=== PATIENT | female | born 1985 | race Caucasian/White ===

== ENCOUNTER 2016-12-07 16:03 | Inpatient (IN) | payer SELFPAY ==
[2016-12-07] MEDS ORDERED: ADENOSINE 6 MG/2 ML VIAL ONE ×3 (16:41→20:25)
--- NOTE | 2016-12-07 16:41 | CPEKG ---
Heart Rate: 141 RR Interval: 426 QRSD Interval: 152 QT Interval: 396 QTC Interval: 607 QRS [place]: 107 T Wave [place]: 55 EKG Severity - ABNORMAL ECG - EKG Impression: WIDE COMPLEX TACHYCARDIA EKG Impression: NONSPECIFIC INTRAVENTRICULAR CONDUCTION DELAY Electronically Signed By: Manuel Padilla 07-Dec-2016 19:46:24
[2016-12-07] MEDS ORDERED: NS 1,000 ML IV ONE (16:56)
[2016-12-07] MEDS ORDERED: ADENOSINE 6 MG/2 ML VIAL IVP ONE ×2 (16:57)
[2016-12-07 17:09] LABS: % IMMATURE GRANULYOCYTES 0.4 % (0.0-1.1); ABSOLUTE IMMATURE GRANULOCYTES 0.03 10^3/uL (0.00-0.10); ADD DIFF? NO; ADD MORPH? NO; ADD SCAN? NO; ATYPICAL LYMPHOCYTE FLAG 0 (0-99); FRAGMENT RBC FLAG 0 (0-99); HEMATOCRIT 49.4 % (38.0-47.0); HEMOGLOBIN 16.7 g/dL (12.6-16.3); LEFT SHIFT FLG 0 (0-99); LIPEMIA HEMOLYSIS FLAG 90 (0-99); MEAN CELL HEMOGLOBIN 36.9 pg (27.9-34.1); MEAN CELL HEMOGLOBIN CONCENTR. 33.8 g/dL (32.4-36.7); MEAN CELL VOLUME 109.3 fL (81.5-99.8); MEAN PLATELET VOLUME 10.3 fL (8.7-11.7); PLATELET CLUMPS FLAG 0 (0-99); PLATELET COUNT 237 10^3/uL (150-400); RED BLOOD CELL COUNT 4.52 10^6/uL (4.18-5.33); RED CELL DISTRIBUTION WIDTH 12.3 % (11.5-15.2)
[2016-12-07 17:13] LABS: ANION GAP 14 mEq/L (8-16); CALCIUM 8.9 mg/dL (8.5-10.4); CARBON DIOXIDE 25 mEq/l (22-31); CHLORIDE 102 mEq/L (97-110); CREATININE 0.8 mg/dL (0.6-1.0); GLOMERULAR FILTRATION RATE > 60; GLUCOSE 91 mg/dL (70-100); POTASSIUM 4.4 mEq/L (3.5-5.2); SODIUM 141 mEq/L (134-144)
--- NOTE | 2016-12-07 17:24 | EDPHY ---
HPI/HX/ROS/PE/MDM Narrative: Chief complaint: Shortness of breath, chest pain and fatigue HPI: 31-year-old female presenting with 2-3 weeks of general shortness of breath, fatigue, mild tightness in her right upper chest which seems a bit worse when she takes a deep breath. No recent travel. No leg pain or swelling. No recent immobility. She does not smoke. She does not take control. No family history of blood clotting disorder. He has not had any palpitations. She was seen at Urgent Care noted to be tachycardic if the rate of 130-40 was sent here for evaluation. Patient has not had any recent illness. No fevers or chills. No cough. No abdominal pain. No nausea or vomiting. Does not have a family history of cardiac arrhythmias or sudden cardiac . She does not smoke. Drinks occasional caffeinated beverages. Rare alcohol. No other recreational drug use. ROS: 10 point Review of Systems is negative except as noted in the HPI. My physical exam: Gen: Awake, Alert, No Distress, tachycardic and regular with a rate about 140 HEENT: Nose: no rhinorrhea Eyes: PERRLA, EOMI Mouth: Moist mucosa Neck: Supple, no JVD Chest: nontender, lungs clear to auscultation Heart: Tachycardic Abd: Soft, non-tender, no guarding Back: no CVA tenderness, no midline tenderness Ext: no edema, non-tender Skin: no rash Neuro: CN II-XII intact, Sensation grossly intact, Strength 5/5 in bilateral upper and lower extremities ED Course: ECG 1, 1638 wide complex tachycardia with a rate of 141, ECG 2. 1822 sinus tachycardia with a rate of 120 with a left bundle branch block morphology CT chest: As interpreted by Dr. Palafox. Small right pleural effusion. Cardiomegaly. No PE. No pericardial effusion. Ground-glass appearance in the right lower lobe. Patient has a wide complex regular tachycardia with a rate of 141 and is hypertensive with this. Cannot rule out a possible reentrant rhythm given her hemodynamic stability. She was given adenosine 6 mg followed by 12 mg rapid IV push. There is absolutely no change in her rhythm. Blood work has been sent. She is mildly hypoxic with an oxygen saturation about 90-91% on room air racing the increased concern for the possibility of pulmonary embolus. 1729 D-dimer elevated at 3.2. CT angiogram of her chest has been ordered. Heart rate has dropped down to 120 but remains wide complex. She remains hemodynamically appropriate. CT noted. No PE. Cardiomegaly. Patient's troponin is normal. Her CBC is normal her electrolytes are normal. I have discussed with Dr. Thompson, cardiology. has reviewed the ECGs. He agrees with me that this is cardiomegaly with a possible myocarditis. He is requesting a BMP. He will arrange for an echocardiogram to be done as an inpatient tomorrow. He is asking that the patient be admitted to the hospitalist service. I have discussed with Dr. Lopez, hospitalist. He will admit to his service for further evaluation. He would like the patient paced on PCU. Dr. Moody is at the bedside. He has attempted a 3rd dose of adenosine which was unsuccessful. He would like to cardiovert her in the emergency department. I will be providing the procedural sedation. I have explained the risks and associated with procedural sedation including respiratory distress depression hypotension. She understands these and has verbally consented. Procedure: Procedural sedation. Indication: Electrical cardioversion. A pre-sedation evaluation was completed on the patient just prior to the procedure. Patient is an appropriate candidate for procedural sedation with ASA class 1 E. The risks of the sedation were discussed including but not limited to dysrhythmia, need for airway intervention or general anesthesia, disability, ; and verbal consent obtained. A timeout was observed and patient's identity confirmed. The patient was sedated with 50 mcg of fentanyl and a total of 110 mg of propofol. The patient was monitored with continuous pulse oximetry, capnography, and school lunch monitor. There were no complications and no significant hypoxemia. I remained at the bedside for the sedation. The total time I spent in the procedural sedation was 15 minutes. - Data Points Laboratory Results: Laboratory Results 12/07/16 16:35 12/07/16 16:35 12/07/16 16:35 WBC 8.43 10^3/uL (3.80-9.50) RBC 4.52 10^6/uL (4.18-5.33) Hgb 16.7 H g/dL (12.6-16.3) Hct 49.4 H % (38.0-47.0) MCV 109.3 H fL (81.5-99.8) MCH 36.9 H pg (27.9-34.1) MCHC 33.8 g/dL (32.4-36.7) RDW 12.3 % (11.5-15.2) Plt Count 237 10^3/uL (150-400) MPV 10.3 fL (8.7-11.7) Neut % (Auto) 59.2 % (39.3-74.2) Lymph % (Auto) 30.6 % (15.0-45.0) [place] % (Auto) 8.1 % (4.5-13.0) Eos % (Auto) 0.8 % (0.6-7.6) Baso % (Auto) 0.9 % (0.3-1.7) Nucleat RBC Rel Count 0.0 % (0.0-0.2) Absolute Neuts (auto) 4.99 10^3/uL (1.70-6.50) Absolute Lymphs (auto) 2.58 10^3/uL (1.00-3.00) Absolute Monos (auto) 0.68 10^3/uL (0.30-0.80) Absolute Eos (auto) 0.07 10^3/uL (0.03-0.40) Absolute Basos (auto) 0.08 10^3/uL (0.02-0.10) Absolute Nucleated RBC 0.00 10^3/uL (0-0.01) Immature Gran % 0.4 % (0.0-1.1) Immature Gran # 0.03 10^3/uL (0.00-0.10) D-Dimer 3.25 H ug/mLFEU (0.00-0.50) Sodium 141 mEq/L (134-144) Potassium 4.4 mEq/L (3.5-5.2) Chloride 102 mEq/L (97-110) Carbon Dioxide 25 mEq/l (22-31) Anion Gap 14 mEq/L (8-16) BUN 4 L mg/dL (7-23) Creatinine 0.8 mg/dL (0.6-1.0) Estimated GFR > 60 Glucose 91 mg/dL (70-100) Calcium 8.9 mg/dL (8.5-10.4) Troponin I 0.022 ng/mL (0-0.034) Medications Given: Discontinued Medications Adenosine (Adenosine) 6 mg IVP EDNOW ONE Stop: 12/07/16 16:58 Last Admin: 12/07/16 16:45 Dose: 6 mg Adenosine (Adenosine) 12 mg IVP EDNOW ONE Stop: 12/07/16 16:58 Last Admin: 12/07/16 16:50 Dose: 12 mg Sodium Chloride (Ns) 1,000 mls @ 0 mls/hr IV ONCE ONE PRN Reason: Wide Open Stop: 12/07/16 16:57 Last Admin: 12/07/16 17:00 Dose: 1,000 mls General Time Seen by Provider: 12/07/16 16:27 Initial Vital Signs: Initial Vital Signs Temperature (C) 36.4 C 12/07/16 16:09 Heart Rate 127 H 12/07/16 16:09 Respiratory Rate 18 12/07/16 16:09 Blood Pressure 163/124 H 12/07/16 16:09 O2 Sat (%) 94 12/07/16 16:09 O2 Delivery Mode Room Air O2 (L/minute) 2 Allergies/Adverse Reactions: codeine Allergy (Verified 12/07/16 16:13) hydromorphone HCl [From Dilaudid] Allergy (Unverified 12/07/16 20:31) Constipation Home Medications: Medication Instructions Recorded Albuterol Hfa Anes Only [Proair 1 - 2 puffs IH QID 12/07/16 Hfa Icu (*)] Benzophenone [LIP MOISTURIZER] 1 each TP DAILY PRN 12/07/16 EPINEPHRINE [EPIPEN] 0.3 mg IM ONCE 12/07/16 Loteprednol Etabonate [Alrex] 1 drop EACHEYE BID PRN 12/07/16 Mucinex Relief Cold And Sinus 1 tab PO Q4H PRN 12/07/16 Departure - Departure Disposition: [facility] Acute Clinical Impression: Cardiomyopathy, Tachycardia Condition: Fair
[2016-12-07 17:25] LABS: TROPONIN I 0.022 ng/mL (0-0.034)
[2016-12-07] MEDS ORDERED: IOPAMIDOL (ISOVUE 370) 100 ML BTL IV ONE (17:30)
--- NOTE | 2016-12-07 17:51 | DX ---
Chest, PA and Lateral History: Dyspnea, chest tightness COMPARISON: None Findings: There is cardiomegaly. The pulmonary vascularity is plethoric. There is interstitial pulmon gissel edema. Difficult to exclude tiny lateral pleural effusions but the posterior costophrenic gutters remain sharp. No evidence for pneumonia or pneumothorax. On the lateral view there is asymmetrical d ensity associated with the posterior elements of T12 that may represent overlying consolidation or sc lerotic bone abnormality.. Impression:1. Early/impending CHF with interstitial pulmonary edema. Considering the patient's age po ssible cardiomyopathy or endocarditis should be considered 2. Small area of consolidation versus sclerosis T12 posterior elements. This can be followed on foll ow-up radiography, as clinically directed. Results discussed with Dr. Jones at 5:47 PM.
--- NOTE | 2016-12-07 18:26 | CPEKG ---
Heart Rate: 120 RR Interval: 500 P-R Interval: 64 QRSD Interval: 146 QT Interval: 412 QTC Interval: 583 P [place]: 0 QRS [place]: 44 T Wave [place]: 66 EKG Severity - ABNORMAL ECG - EKG Impression: SINUS TACHYCARDIA EKG Impression: IVCD, CONSIDER ATYPICAL LBBB Electronically Signed By: Manuel Padilla 07-Dec-2016 19:46:24
--- NOTE | 2016-12-07 18:35 | CT ---
CT Chest Pulmonary Angiogram With Contrast Enhancement and Multiplanar Reconstructions at 1748 hours History: Chest pain, elevated d-dimer Technique: 1.25 mm axial multidetector helical CT angiogram imaging was performed through the chest w hile 90 mL Isovue-370 were injected intravenously without complication. The images were then transfe rred to an independent workstation where multiplanar and three-dimensional reconstructions were perfo rmed by the interpreting physician and reviewed at multiple windows. Dose reduction techniques were u tilized. CT Pulmonary Angiogram Findings: No CT evidence of definite pulmonary thromboemboli. No aortic aneur ysm or dissection. Cardiomegaly with minimal pericardial effusion. Reflux of contrast into the inferi or vena cava. CT Chest Findings: Hyygr-zh-rphrvvld right pleural effusion. Minimal left pleural effusion. Linear de nsity in the anterior segment of the left lower lobe probably representing atelectasis. Minimal groun dglass opacity in the right lower lobe dependently probably representing atelectasis. Nonspecific rig ht lower lobe 7 mm noncalcified pulmonary nodule near the major fissure on image 78 of series 6. No p neumothorax although lung apices not imaged. Impression: 1. No definite pulmonary thromboemboli. 2. Cardiomegaly with minimal pericardial effusion with reflux of contrast into the inferior vena cava suggesting poor cardiac output. 3. Small to moderate right pleural effusion and minimal left pleural effusion. 4. Right lower lobe nonspecific 7 mm pulmonary nodule for which follow-up is recommended. Findings and recommendations discussed with Dr. John Paul Mccann at 1800 hours. A Critical Abnormality Doc Only message has been documented for John Paul Jones MD in the [employer] Critical Result system on 12/07/2016 18:33, Message ID [id number].
[2016-12-07] MEDS ORDERED: ONDANSETRON DISINTEGRATING 4 MG TAB PO PRN (20:01)
[2016-12-07] MEDS ORDERED: ONDANSETRON 4 MG/2 ML VIAL IVP PRN (20:01)
[2016-12-07] MEDS ORDERED: FUROSEMIDE 20 MG/2 ML VIAL IVP SCH (20:30)
[2016-12-07] MEDS ORDERED: CARVEDILOL 3.125 MG TAB PO SCH (20:30)
[2016-12-07] MEDS ORDERED: PROPOFOL/EMULSION 1,000 MG/100 ML BOTTLE IV ONE (20:46)
[2016-12-07] MEDS ORDERED: fentaNYL 100 MCG/2 ML INJ ONE (20:46)
[2016-12-07] MEDS ORDERED: PROPOFOL 200 MG/20 ML VIAL ONE ×2 (20:47→20:49)
[2016-12-07] MEDS ORDERED: fentaNYL 100 MCG/2 ML INJ IVP ONE (21:23)
[2016-12-07] MEDS ORDERED: PROPOFOL 200 MG/20 ML VIAL IVP ONE (21:23)
[2016-12-07] MEDS ORDERED: [UNRECOGNIZED DRUG - OTHER] PO PRN (21:39)
[2016-12-07] MEDS ORDERED: LOTEPREDNOL ETABONATE EACHEYE PRN (21:39)
[2016-12-07] MEDS ORDERED: [UNRECOGNIZED DRUG - OTHER] TP PRN (21:39)
--- NOTE | 2016-12-07 21:44 | PDGENHP ---
History and Physical - Chief Complaint Acute palpitation - History of Present Illness Primary care provider: Dr. Argueta HPI: 31-year-old female presenting with acute palpitations characterized as racing heart rate with associated shortness of breath and chest discomfort located in the right chest. She reports that the symptoms began approximately 2 -3 weeks ago in the setting of general malaise with cough and sinus congestion. She also noted what she characterizes as a sticking feeling in her anterior neck. She felt like she was experiencing a viral illness but on the day of presentation she reports that her late is overall the into significant weakness and she noted that her heart was racing. During the duration of her symptoms she reports that her shortness of breath was exacerbated with activity and somewhat alleviated with rest. She denies any lower extremity edema, denies any changes in her dietary habits, denies any reduction in her urine output. Prior to her onset of symptoms, she had otherwise been feeling well. She has utilized bcnm-vpb-enhipte medications including antihistamines and Mucinex during the past 2-3 weeks. History Information - Allergies/Home Medication List Allergies/Adverse Reactions: codeine Allergy (Verified 12/07/16 16:13) hydromorphone HCl [From Dilaudid] Allergy (Unverified 12/07/16 20:31) Constipation Home Medications: Albuterol Hfa Anes Only [Proair Hfa Icu (*)] 1 - 2 puffs IH QID 12/07/16 [Last Taken 12/06/16] Benzophenone [LIP MOISTURIZER] 1 each TP DAILY PRN 12/07/16 [Last Taken 12/07/16 ] EPINEPHRINE [EPIPEN] 0.3 mg IM ONCE 12/07/16 [Last Taken Unknown] Loteprednol Etabonate [Alrex] 1 drop EACHEYE BID PRN 12/07/16 [Last Taken Unknown] Mucinex Relief Cold And Sinus 1 tab PO Q4H PRN 12/07/16 [Last Taken 12/07/16] I have personally reviewed and updated: family history, medical history, social history, surgical history - Past Medical History asthma (With as needed inhaler) Additional medical history: Elevated liver enzymes with possible nonalcoholic steatohepatitis - Surgical History Reports: no pertinent surgical hx - Family History Additional family history: No family history of cardiac abnormalities, her mother has what sounds to be hypo thyroidism - Social History Smoking Status: Never smoked Alcohol Use: Occasionally Drug Use: None Additional social history: No illegal drugs, normally independent in ADLs Review of Systems ROS: 10pt was reviewed & negative except for what was stated in HPI & below Constitutional: Reports: malaise, weakness Cardiac: Reports: irregular heart rate, palpitations Respiratory: Reports: shortness of breath Physical Exam Temp Pulse Resp BP Pulse Ox 36.4 C 121 H 17 138/96 H 94 12/07/16 16:09 12/07/16 21:24 12/07/16 21:24 12/07/16 21:24 12/07/16 21:24 O2 (L/minute) 4 Constitutional: no apparent distress, not in pain, obese, No chronically ill appearing, No uncomfortable Eyes: PERRL, anicteric sclera, EOMI Ears, Nose, Mouth, Throat: moist mucous membranes, hearing normal, ears appear normal, no oral mucosal ulcers Cardiovascular: irregularly irregular, tachycardia, No systolic murmur, No edema Respiratory: no respiratory distress, no rales or rhonchi, clear to auscultation Gastrointestinal: normoactive bowel sounds, soft, non-tender abdomen, no palpable masses Genitourinary: no bladder fullness, no bladder tenderness Skin: warm, normal color, no rashes or abrasions, no fluctuance, no induration, No mottled Neurologic: AAOx3, sensation intact bilaterally, No weakness Psychiatric: interacting appropriately, not anxious, not encephalopathic, thought process linear Lab Data & Imaging Review 12/07/16 16:35 12/07/16 16:35 WBC 8.43 10^3/uL (3.80-9.50) 12/07/16 16:35 RBC 4.52 10^6/uL (4.18-5.33) 12/07/16 16:35 Hgb 16.7 g/dL (12.6-16.3) H 12/07/16 16:35 Hct 49.4 % (38.0-47.0) H 12/07/16 16:35 MCV 109.3 fL (81.5-99.8) H 12/07/16 16:35 MCH 36.9 pg (27.9-34.1) H 12/07/16 16:35 MCHC 33.8 g/dL (32.4-36.7) 12/07/16 16:35 RDW 12.3 % (11.5-15.2) 12/07/16 16:35 Plt Count 237 10^3/uL (150-400) 12/07/16 16:35 MPV 10.3 fL (8.7-11.7) 12/07/16 16:35 Neut % (Auto) 59.2 % (39.3-74.2) 12/07/16 16:35 Lymph % (Auto) 30.6 % (15.0-45.0) 12/07/16 16:35 [place] % (Auto) 8.1 % (4.5-13.0) 12/07/16 16:35 Eos % (Auto) 0.8 % (0.6-7.6) 12/07/16 16:35 Baso % (Auto) 0.9 % (0.3-1.7) 12/07/16 16:35 Nucleat RBC Rel Count 0.0 % (0.0-0.2) 12/07/16 16:35 Absolute Neuts (auto) 4.99 10^3/uL (1.70-6.50) 12/07/16 16:35 Absolute Lymphs (auto) 2.58 10^3/uL (1.00-3.00) 12/07/16 16:35 Absolute Monos (auto) 0.68 10^3/uL (0.30-0.80) 12/07/16 16:35 Absolute Eos (auto) 0.07 10^3/uL (0.03-0.40) 12/07/16 16:35 Absolute Basos (auto) 0.08 10^3/uL (0.02-0.10) 12/07/16 16:35 Absolute Nucleated RBC 0.00 10^3/uL (0-0.01) 12/07/16 16:35 Immature Gran % 0.4 % (0.0-1.1) 12/07/16 16:35 Immature Gran # 0.03 10^3/uL (0.00-0.10) 12/07/16 16:35 D-Dimer 3.25 ug/mLFEU (0.00-0.50) H 12/07/16 16:35 Sodium 141 mEq/L (134-144) 12/07/16 16:35 Potassium 4.4 mEq/L (3.5-5.2) 12/07/16 16:35 Chloride 102 mEq/L (97-110) 12/07/16 16:35 Carbon Dioxide 25 mEq/l (22-31) 12/07/16 16:35 Anion Gap 14 mEq/L (8-16) 12/07/16 16:35 BUN 4 mg/dL (7-23) L 12/07/16 16:35 Creatinine 0.8 mg/dL (0.6-1.0) 12/07/16 16:35 Estimated GFR > 60 12/07/16 16:35 Glucose 91 mg/dL (70-100) 12/07/16 16:35 Calcium 8.9 mg/dL (8.5-10.4) 12/07/16 16:35 Troponin I 0.022 ng/mL (0-0.034) 12/07/16 16:35 TSH 5.810 uIU/mL (0.465-4.680) H 12/07/16 Unknown Visualized and Interpreted Chest x-ray results: Yes Chest X-Ray results: other (Mild interstitial prominence without any focal airspace disease) Visualized and Interpreted EKG results: Yes EKG Interpretation: Positive for: other (Initially appeared to have wide complex tachycardia, slow down to a sinus tachycardia) Assessment & Plan Assessment: 31-year-old female presents with acute palpitations in the setting of wide complex tachycardia Plan: 1. Tachycardia. Acute, new problem this provider, further workup indicated. Unclear whether this is a wide complex tachycardia versus sinus tach, unclear precipitant -discussed with Dr. Moody, cardiology consultation in the emergency department appreciated, he has ordered a stat echo to be performed at bedside this evening to determine whether she has an overt cardiomyopathy -CT angiogram demonstrates no evidence of pulmonary embolism, TSH demonstrates no evidence of thyrotoxicosis -chest x-ray demonstrates some mild interstitial prominence but no significant CHF which would otherwise be driving her tachycardia -the patient was attempted to be cardioverted in the emergency department, and this appeared to result in a sinus tachycardia -Dr. Thompson recommends holding on initiating beta blockers or diuretics until the patient has undergone echocardiogram so we are able to determine whether she has a pericardial effusion or tamponade -continue to monitor on telemetry -continue to cycle cardiac enzymes as well as electrolytes -given patient's ongoing significant tachycardia with heart rate around 150, we will monitor her closely in the intensive care unit for frequent blood pressure monitoring 2. History of transaminitis. Reviewed outside records including liver ultrasound from 10/20/2015, reporting that patient most likely has underlying steatohepatitis Diet. Cardiac diet admission status., NPO after MN in case cath required Prophylaxis. Low risk patient, SCDs Code. Full Disposition. Anticipated discharge is 12/08/2016, pending further stabilization of the issues outlined above. If patient requires greater than 48 hours inpatient hospitalization for ongoing workup and stabilization of her tachycardia, then she will be upgraded to inpatient
[2016-12-07] MEDS ORDERED: FUROSEMIDE 20 MG/2 ML VIAL IVP ONE (22:22)
[2016-12-07] MEDS: CARVEDILOL 3.125 MG TAB PO SCH (23:02)
[2016-12-08] MEDS: ACETAMINOPHEN 325 MG TAB PO PRN ×4 (00:15→21:08)
[2016-12-08 05:34] LABS: % IMMATURE GRANULYOCYTES 0.1 % (0.0-1.1); ABSOLUTE IMMATURE GRANULOCYTES 0.01 10^3/uL (0.00-0.10); ADD DIFF? NO; ADD MORPH? NO; ADD SCAN? NO; ATYPICAL LYMPHOCYTE FLAG 0 (0-99); FRAGMENT RBC FLAG 0 (0-99); HEMATOCRIT 43.6 % (38.0-47.0); HEMOGLOBIN 14.6 g/dL (12.6-16.3); LEFT SHIFT FLG 0 (0-99); LIPEMIA HEMOLYSIS FLAG 80 (0-99); MEAN CELL HEMOGLOBIN 36.8 pg (27.9-34.1); MEAN CELL HEMOGLOBIN CONCENTR. 33.5 g/dL (32.4-36.7); MEAN CELL VOLUME 109.8 fL (81.5-99.8); PLATELET CLUMPS FLAG 0 (0-99); PLATELET COUNT 184 10^3/uL (150-400); RED BLOOD CELL COUNT 3.97 10^6/uL (4.18-5.33); RED CELL DISTRIBUTION WIDTH 12.1 % (11.5-15.2)
[2016-12-08 05:54] LABS: ALANINE AMINOTRANSFERASE 116 IU/L (9-52); ALBUMIN 3.3 g/dL (3.5-5.0); ALKALINE PHOSPHATASE 118 IU/L (38-126); ANION GAP 8 mEq/L (8-16); ASPARTATE AMINOTRANSFERASE 135 IU/L (14-46); CALCIUM 7.7 mg/dL (8.5-10.4); CARBON DIOXIDE 26 mEq/l (22-31); CHLORIDE 101 mEq/L (97-110); CREATININE 0.8 mg/dL (0.6-1.0); GLOMERULAR FILTRATION RATE > 60; GLUCOSE 83 mg/dL (70-100); MAGNESIUM 1.2 mg/dL (1.6-2.3); POTASSIUM 4.9 mEq/L (3.5-5.2); SODIUM 135 mEq/L (134-144)
[2016-12-08 05:59] LABS: TROPONIN I 0.066 ng/mL (0-0.034)
[2016-12-08] MEDS: ALBUTEROL 60 PUFFS/8 GM MDI IH SCH ×2 (06:06→11:17)
[2016-12-08 06:24] LABS: BILIRUBIN-CONJUGATED 1.1 mg/dL (0.0-0.5); BILIRUBIN-UNCONJUGATED 1.9 mg/dL (0.0-1.1)
[2016-12-08] MEDS ORDERED: PROTOCOL MAGNESIUM 1 DOSE IV PRN (06:29)
[2016-12-08] MEDS ORDERED: MAGNESIUM SULF 2 GM/WATER 50 ML IV ONE (07:51)
[2016-12-08] MEDS: CARVEDILOL 3.125 MG TAB PO SCH ×2 (08:01→18:20)
--- NOTE | 2016-12-08 09:07 | ECHO ---
[id number] + + [address] : : [place] [address] : : [phone] + + Adult Echocardiographic Report + -+ :Name: JANNA PADILLA LStudy Date: 12/07/2016 09:54 PM : : Hospital Admission Number: [id number] : :: 1985 Gender: Female Height: 69 in : :Age: 31 yrs Race: WH Weight: 159 lb : :Reason For Study: Eval LV Fx : : BSA: 1.9 meters 2: :History: Tachycardia, Eval for Cardiomyopathy : + -+ MMode/2D Measurements & Calculations IVSd: 0.92 cm LVIDd: 6.3 cm FS: 6.7 % Ao root diam: LVPWd: 1.0 cm LVIDs: 5.9 cm EDV(Teich): 2.6 cm 201.9 ml ACS: 1.8 cm ESV(Teich): 172.5 ml EF(Teich): 14.5 % LVLd ap4: 9.3 cm SV(MOD-sp4): EDV(MOD-sp4): 28.0 ml 168.0 ml LVLs ap4: 8.6 cm ESV(MOD-sp4): 140.0 ml EF(MOD-sp4): 16.7 % Normal Measurement Values: + + :LVIDd (3.5-5.7cm) IVSd (0.6-1.1cm) LVPWd (0.6-1.1cm) Aortic Root (2.0-3.7cm)Left Atrium (1.5-4.0cm): :LV Vol(d) (76-115ml) LV Vol(s) (29-48ml) Ejec Fraction (50-65%)PV [place] (0.6- 1.2m/s) TV [place] (0.4-1.0m/s) : :MV E [place] (0.8-1.0m/s)MV A [place] (0.3-1.0m/s)LVOT [place] (0.7-1.2m/s) Asc Ao [place] ( 0.9-1.8m/s) : + + Doppler Measurements & Calculations MV E max checo: Ao V2 max: LV V1 max: PA V2 max: 123.0 cm/sec 106.0 cm/sec 48.3 cm/sec 85.5 cm/sec Ao max PG: LV V1 max PG: PA max P.5 mmHg 0.93 mmHg 2.9 mmHg TR max checo: 323.0 cm/sec TR max P.7 mmHg RAP systole: 5.0 mmHg RVSP(TR): 46.7 mmHg Left Ventricle The left ventricle is mildly dilated. There is normal left ventricular wall thickness. Left ventricular systolic function is severely reduced. Ejection Fraction = 15-20%%. There is septal dyskinesis. Septal motion is consistent with conduction abnormality. Right Ventricle The right ventricle is normal in size and function. Atria The left atrial size is normal. Right atrial size is normal. Mitral Valve The mitral valve is normal in structure and function. There is no evidence of mitral valve prolapse. There is no mitral valve stenosis. There is mild mitral regurgitation. Tricuspid Valve There is mild tricuspid regurgitation. Right ventricular systolic pressure is 47mmHg. There is Doppler evidence for mild to moderate pulmonary hypertension. Aortic Valve The aortic valve is normal in structure and function. The aortic valve is trileaflet. There is no aortic stenosis. There is no aortic insufficiency. Pulmonic Valve The pulmonic valve is normal in structure and function. There is no pulmonic valvular regurgitation. Great Vessels The aortic root is normal size. Pericardium/Pleural There is no pericardial effusion. Conclusion A complete two-dimensional transthoracic echocardiogram was performed (2D, M-mode, Doppler and color flow Doppler). The left ventricle is mildly dilated. Left ventricular systolic function is severely reduced. There is septal dyskinesis. This patient has a non-ischemic cardiomyopathy. Septal motion is consistent with conduction abnormality. The mitral valve is normal in structure and function. There is mild mitral regurgitation. There is mild tricuspid regurgitation. Right ventricular systolic pressure is 47mmHg. There is Doppler evidence for mild to moderate pulmonary hypertension. The aortic valve is normal in structure and function. The aortic valve is trileaflet. There is no pericardial effusion. Ejection Fraction = 15-20%%. Final Reading Physician: Fariha Mcbride signed on 12/08/2016 09:05 AM Ordering Physician: Humberto Lopez Performed By: Alessandro Jarrell RDCS
[2016-12-08] MEDS ORDERED: FUROSEMIDE 20 MG/2 ML VIAL IVP ONE ×2 (11:00)
--- NOTE | 2016-12-08 11:09 | GCON ---
[f rep st] CONSULTATION REFERRING PHYSICIAN: Dr. Yu PRIMARY CARE PROVIDER: Dr. Argueta HISTORY OF PRESENT ILLNESS: This is a 31-year-old female with no significant past medical history other than being diagnosed with hypertension and some unknown cardiac abnormality last year, who came in presenting with shortness of breath and chest discomfort located in the right chest which has been going on for 2-3 weeks in the setting of generalized malaise with cough and sinus congestion. She was noted to have a sticking feeling in the anterior neck. She felt like she was experiencing viral illness but on the day of the presentation she had generalized weakness, a feeling of her heart racing and some shortness of breath. She mentioned that with minimal activity her shortness of breath gets worse and somewhat alleviated with rest. Denies any lower extremity edema but does have orthopnea and PND. Prior to the onset of symptoms, she was doing much better. She has utilized inhalers at home. PAST MEDICAL HISTORY: Last year she was told that she had hypertension. EKG showed some abnormalities and then she had an echo done, the report of which is not available, but she was asked to follow up with a broadcast producer, which she did not do at that point in time. MEDICATIONS: At home, albuterol. ALLERGIES: Codeine and hydromorphone. FAMILY HISTORY: Noncontributory. SOCIAL HISTORY: Nonsmoker and occasional alcohol use. No illegal drug abuse. REVIEW OF SYSTEMS: Other than above are negative. PHYSICAL EXAMINATION: VITAL SIGNS: Blood pressure 150/90, pulse of 121, respiratory rate 16, sats 94%. HEENT: Pupils equal, reacting to light accommodating. NECK: No lymphadenopathy. No thyromegaly. CHEST: Good air entry, bilaterally equal. No rales, rhonchi, rub. CARDIOVASCULAR: S1 is regular, tachycardia noted. No systolic ejection murmur noted. ABDOMEN: Soft, nontender. No guarding or rigidity. Bowel sounds present. EXTREMITIES: Minimal edema noted. NEUROLOGIC: Intact. PSYCHIATRIC: Interacting appropriately, not anxious. Not encephalopathic. LABORATORY STUDIES: EKG shows wide-complex tachycardia with left bundle-like morphology, however, late transition is noted in V5 and V6 and there was questionable VA dissociation. Hence, after giving propofol, cardioversion was performed. After that, the heart rate dropped just a little bit to 118 beats a minute and it was clear that the patient was in sinus tachycardia. Echocardiogram was emergently performed that showed generalized hypokinesis with an EF of 20%, with mild MR and mild TR. Chest x-ray shows mild interstitial prominence. IMPRESSION AND PLAN: This is a 31-year-old female, who comes in with shortness of breath and was noted to have wide-complex tachycardia, which appears to be sinus tachycardia and has low ejection fraction. 1. In view of low ejection fraction, this is likely nonischemic cardiomyopathy and we will treat her with Coreg 3.125 mg p.o. twice daily, and give her Lasix 20 mg IV x1. We will see how she reacts to it before adding other medications for her cardiomyopathy. 2. Since this is new onset cardiomyopathy, cardiac catheterization may be helpful and perform it once the patient is more stable. 3. Once blood pressure stabilizes on Coreg, which will be started, we will add lisinopril. I will get Dr. David Treviño, our CHF production support consultant, to render an opinion on this. Thank you for letting me participate in the patient's care. Feel free to call me with questions. /[id number]/MODL MTDD
[2016-12-08] MEDS ORDERED: ALBUTEROL 60 PUFFS/8 GM MDI IH PRN (12:03)
[2016-12-08] MEDS ORDERED: BENZOCAINE (ORAJEL) GEL 11.9GM TUBE TP PRN (12:05)
--- NOTE | 2016-12-08 13:39 | SOAPPROG ---
SHAAN Progress Note Assessment/Plan: Assessment: CHF consultation performed and dictated. See full dictation for entire thoughts. 31 y/o woman with previous heavy ETOH use and HTN for 5yrs not on BP meds. Had echo 10/03 showed LVEF 49% with LVEDD 5.6cm. Presented last night with heart racing, fatigue for two weeks. In sinus tachycardia, echo last night: LVEF 17% with LVEDD 6.3cm, normal RVEF, mild MR/TR and estimated PAS 47mmHg. Had a seizure this am. Currently tired. Denies rest dyspnea or PND or CP. Imp: 1)Newly diagnosed systolic CHF which probably has been going on for several years. I think the etiology(s) are ETOH related and HTN with maybe a previous viral exposure. REC: 1)continue Coreg 3.125mg PO BID 2)start Lisinopril 5mg PO BID 3)start Aldactone 25mg PO qday. 4)Lasix 20mg IV BID 5)check urine tox screen 6)check PT/INR, NT-pro BNP and would do cardiac troponins q8hrs x 2 more 7)L/R cardiac cath tommorrow with Dr. Gonzales. If no significant CAD and right heart hemodynamics okay, could transfer to tele sunday afternoon. 8)Complete ETOH abstinence 9)Probably uptitrate meds thru weekend with hopefully home Sunday or Sunday with close f/u in CHF clinic with me. 10)she is uninsured but also I think she is stabilizing and does not need transfer to [facility] for OHT or VAD work up currently Thanks. 12/08/16 13:33 Objective: Vital Signs Temp Pulse Resp BP Pulse Ox 37 C 86 24 H 124/85 H 98 12/08/16 12:00 12/08/16 13:00 12/08/16 13:00 12/08/16 13:00 12/08/16 13:00 Laboratory Results 12/08/16 05:00 12/08/16 05:00 12/07/16 12/08/16 12/09/16 05:59 05:59 05:59 Intake Total 5500 Balance 5500 ICD10 Worksheet Patient Problems: Problems Problem Status Diagnosed Cardiomyopathy Acute Tachycardia Acute
[2016-12-08] MEDS ORDERED: TEMAZEPAM 15 MG CAP PO PRN (13:42)
--- NOTE | 2016-12-08 14:10 | GCON ---
[f rep st] CONSULTATION MAIL PROCESSOR CONSULTATION REASON FOR ADMISSION: Breathlessness. HISTORY OF PRESENT ILLNESS: This patient is a 31-year-old white female with past medical history of asthma. She presents with increasing breathlessness as well as some chest discomfort. This has been occurring for approximately 3 weeks' time. She is mostly breathless with any form of exertion. The re is no cough or production of sputum. No fever, no night sweats. She was seen in the emergency ro om and subsequently admitted to the intensive care unit. Currently, she is resting comfortably. PAST MEDICAL HISTORY: Significant for asthma. ALLERGIES: Codeine and hydromorphone. SOCIAL HISTORY: Lifelong never smoker. She admits to infrequent alcohol use. There is no illegal d rug use. MEDICATIONS: At home she uses albuterol, EpiPen, Alrex, and Mucinex. PHYSICAL EXAM: VITAL SIGNS: Blood pressure is 114/76, pulse 83, respirations 22, temp 37.0, oxygen saturation 99% on 4 L. GENERAL: She is moderately overweight but very pleasant 31-year-old white fe male who is resting comfortably in no acute distress. HEENT: Eyes are DANIELLE, EOMI. Throat shows no erythema or tonsillar hypertrophy. NECK: Supple. There is no cervical adenopathy. HEART: Regular rate and rhythm with a 2/6 systolic murmur at the left sternal border without radiation. LUNGS: Di minished breath sounds but no wheeze. ABDOMEN: Soft, nontender. Bowel sounds are present in all 4 quadrants. EXTREMITIES: No clubbing, cyanosis, or edema. LABORATORIES: White count 6.7, hemoglobin 14, hematocrit 43. MCV is markedly elevated at 109. Plat elet count is 184. Sodium 135, potassium 4.9, chloride 101, CO2 is 26, BUN 6, creatinine 0.8, glucos e is 83. AST is 135, ALT 116, alkaline phosphatase 118. TSH is 5.8. Echocardiogram shows an ejection fraction of 15% to 20%. CT angiogram of the chest shows no PE but cardiomegaly and a small right pleural effusion. There is a right lower lobe 7 mm nodule. IMPRESSION: 1. Cardiomyopathy, etiology of which is unclear. Query whether this may be viral versus possibly al coholic. 2. Elevated transaminases. Again unclear etiology at this time. 3. Markedly elevated MCV. 4. History of asthma. RECOMMENDATIONS: 1. Agree with cardiology consult. 2. Patient will be going for cardiac catheterization likely tomorrow. 3. DVT and PE prophylaxis. 4. Stress ulcer prophylaxis. 5. Early ambulation. 6. Out of bed. /[id number]/MODL
[2016-12-08] MEDS: LISINOPRIL 5 MG TAB PO SCH ×2 (15:07→21:08)
[2016-12-08] MEDS: FUROSEMIDE 20 MG/2 ML VIAL IVP SCH (15:07)
[2016-12-08] MEDS: SPIRONOLACTONE 25 MG TAB PO SCH (15:07)
--- NOTE | 2016-12-08 15:22 | HOSPPROG ---
Hospitalist Progress Note Assessment/Plan: * New cardiomyopathy * cardiology following * will be getting heart cath tomorrow * suspect this might be alcohol related * getting diuresis * probable alcoholism * patient has multiple clinical findings that would suggest alcoholism. She has elevated MCV. Her LFTs are elevated and she has fatty liver. Her magnesium was low. She also has had a seizure which I think might be alcohol withdrawal. She states she has had a problem with excessive alcohol intake in the past but has gotten better with that. Unfortunately she has a lot of family in the room I have been unable to really ask your for montrell answers in terms of alcohol consumption. Will try to interview patient alone. * Seizure * strongly suspect alcohol withdrawal. She is not very tremulous at this time is mentating well. She does not have any symptoms including headache focal weakness to suggest other neurological causes. Will going to hold off on imaging at this point. * elevated liver function tests * this is been chronic and she has been worked up in the past. * Strongly suspect alcoholic liver disease * sinus tachycardia * better with beta-hellen * did receive cardioversion in the emergency department * I think this may be due to combination alcohol withdrawal along with her cardiomyopathy Subjective: had witnessed seizure this morning. Does not remember the event but is feeling normal now. No headache weakness. Shortness of breath feels little better. Objective: Vital Signs Temp Pulse Resp BP Pulse Ox 37 C 86 24 H 124/85 H 98 12/08/16 12:00 12/08/16 13:00 12/08/16 13:00 12/08/16 13:00 12/08/16 13:00 discussed with pulmonology and Cardiology tele personally reviewed interpreted normal sinus rhythm - Physical Exam Constitutional: no apparent distress, appears nourished, not in pain Eyes: anicteric sclera, EOMI Ears, Nose, Mouth, Throat: moist mucous membranes, hearing normal, ears appear normal Cardiovascular: regular rate and rhythym, no murmur, rub, or gallop Respiratory: no respiratory distress, no rales or rhonchi, clear to auscultation Gastrointestinal: normoactive bowel sounds, soft, non-tender abdomen, no palpable masses Skin: warm Neurologic: AAOx3, CN II-XII Intact, No weakness, No facial droop Psychiatric: interacting appropriately, not anxious, not encephalopathic, thought process linear ICD10 Worksheet Patient Problems: Problems Problem Status Diagnosed Cardiomyopathy Acute Tachycardia Acute
[2016-12-08 16:25] LABS: INR 1.2 (0.83-1.16); PROTIME(PATIENT) 15.2 SEC (12.0-15.0)
[2016-12-08 16:41] LABS: TROPONIN I 0.044 ng/mL (0-0.034)
[2016-12-09 04:37] LABS: % IMMATURE GRANULYOCYTES 0.3 % (0.0-1.1); ABSOLUTE IMMATURE GRANULOCYTES 0.02 10^3/uL (0.00-0.10); ADD DIFF? NO; ADD MORPH? NO; ADD SCAN? NO; ATYPICAL LYMPHOCYTE FLAG 10 (0-99); FRAGMENT RBC FLAG 0 (0-99); HEMATOCRIT 45.1 % (38.0-47.0); HEMOGLOBIN 15.4 g/dL (12.6-16.3); LEFT SHIFT FLG 0 (0-99); LIPEMIA HEMOLYSIS FLAG 90 (0-99); MEAN CELL HEMOGLOBIN 37.8 pg (27.9-34.1); MEAN CELL HEMOGLOBIN CONCENTR. 34.1 g/dL (32.4-36.7); MEAN CELL VOLUME 110.8 fL (81.5-99.8); MEAN PLATELET VOLUME 10.6 fL (8.7-11.7); PLATELET CLUMPS FLAG 0 (0-99); PLATELET COUNT 177 10^3/uL (150-400); RED BLOOD CELL COUNT 4.07 10^6/uL (4.18-5.33); RED CELL DISTRIBUTION WIDTH 11.9 % (11.5-15.2)
[2016-12-09 04:53] LABS: ANION GAP 4 mEq/L (8-16); CALCIUM 7.9 mg/dL (8.5-10.4); CARBON DIOXIDE 33 mEq/l (22-31); CHLORIDE 99 mEq/L (97-110); CHOLESTEROL 171 mg/dL (140-200); CHOLESTEROL/HDL RATIO 2.16 RATIO (1.00-4.44); CREATININE 0.8 mg/dL (0.6-1.0); GLOMERULAR FILTRATION RATE > 60; GLUCOSE 82 mg/dL (70-100); HIGH DENSITY LIPOPROTEIN 79 mg/dL (40-80); LDL/HDL RATIO 0.97 RATIO (1.00-3.22); LOW DENSITY LIPOPROTEIN 77 mg/dL (70-100); MAGNESIUM 1.9 mg/dL (1.6-2.3); NON-HIGH DENSITY LIPOPROTEIN 92 mg/dL (90-129); POTASSIUM 3.8 mEq/L (3.5-5.2); SODIUM 136 mEq/L (134-144); TRIGLYCERIDE 76 mg/dL (35-135); VERY LOW DENSITY LIPOPROTEINS 15 mg/dL (8-25)
[2016-12-09] MEDS ORDERED: NITROGLYCERIN 0.4 MG BTL SL PRN (06:00)
[2016-12-09] MEDS ORDERED: NS 1,000 ML IV ONE (06:00)
[2016-12-09 06:09] LABS: INR 1.23 (0.83-1.16); PROTIME(PATIENT) 15.5 SEC (12.0-15.0)
[2016-12-09 06:10] LABS: APTT 28.6 SEC (23.0-38.0)
[2016-12-09] MEDS: CARVEDILOL 3.125 MG TAB PO SCH ×2 (08:17→21:16)
[2016-12-09] MEDS: LISINOPRIL 5 MG TAB PO SCH ×2 (08:17→21:16)
[2016-12-09] MEDS: ACETAMINOPHEN 325 MG TAB PO PRN ×2 (08:18→21:26)
--- NOTE | 2016-12-09 08:53 | PDINTPN ---
Office Services Representative Progress Note Assessment/Plan: Assessment/Plan: * CMP-unclear cause. Patient denies excessive ETOH. Query viral -cath today * Sz-once. No clear cause -MRI * Elevated transaminases * Elevated MCV * Dyspnea * Obesity Subjective: Awake and alert. Comfortable. Objective: Vital Signs Temp Pulse Resp BP Pulse Ox 37.1 C 77 17 115/76 100 12/09/16 08:21 12/09/16 08:21 12/09/16 08:21 12/09/16 08:21 12/09/16 08:21 Laboratory Results 12/09/16 04:19 12/09/16 04:19 12/08/16 12/09/16 12/10/16 05:59 05:59 05:59 Intake Total 560 Balance 560 PT 15.5 SEC (12.0-15.0) H 12/09/16 05:26 INR 1.23 (0.83-1.16) H 12/09/16 05:26 Physical Exam - Physical Exam General Appearance: alert, no apparent distress EENT: PERRL/EOMI, normal ENT inspection, pharynx normal Neck: non-tender, full range of motion, supple, normal inspection Respiratory: chest non-tender, lungs clear, normal breath sounds Cardiac/Chest: normal peripheral pulses, regular rate, rhythm, systolic murmur Peripheral Pulses: 2+: carotid (R), carotid (L), femoral (R), femoral (L), dorsalis-pedis (R), dorsalis-pedis (L) Abdomen: normal bowel sounds, non-tender, soft Pelvic Exam: deferred Skin: normal color, warm/dry Extremities: normal range of motion, non-tender, normal inspection, normal capillary refill Neuro/Psych: no motor/sensory deficits, alert, normal mood/affect, oriented x 3 ICD10 Worksheet Patient Problems: Problems Problem Status Diagnosed Cardiomyopathy Acute Tachycardia Acute
[2016-12-09] MEDS ORDERED: LIDOCAINE 1% 30 ML SDV ONE (09:47)
[2016-12-09] MEDS ORDERED: fentaNYL 100 MCG/2 ML INJ ONE (09:47)
[2016-12-09] MEDS ORDERED: HEPARIN 10,000 UNIT/10 ML MDV ONE (09:48)
[2016-12-09] MEDS ORDERED: IOPAMIDOL (ISOVUE-370) 150 ML BTL IV ONE (09:48)
[2016-12-09] MEDS ORDERED: MIDAZOLAM 2 MG/2 ML VIAL ONE (09:48)
[2016-12-09] MEDS ORDERED: VERAPAMIL 5 MG/2 ML VIAL ONE (09:48)
[2016-12-09] MEDS: ASPIRIN EC 325 MG TAB PO ONE ×2 (09:53→11:18)
[2016-12-09] MEDS: diphenhydrAMINE 25 MG CAP PO ONE ×2 (09:53→11:18)
[2016-12-09] MEDS: DIAZEPAM 5 MG TAB PO ONE ×2 (09:53→11:18)
[2016-12-09] MEDS ORDERED: ETOMIDATE 40 MG/20 ML INJ ONE (10:58)
--- NOTE | 2016-12-09 12:04 | GCON ---
[f rep st] CONSULTATION CONGESTIVE HEART FAILURE CONSULT DATE OF CONSULTATION: 12/08/2016 REASON FOR CONSULTATION: Evaluate woman with excessive sinus tachycardia and newly diagnosed severe systolic heart failure. HISTORY OF PRESENT ILLNESS: I was asked by Dr. Lamont Thompson to consult for the above reasons. The evaristo melo is a 31-year-old woman with childhood asthma and borderline elevated high blood pressures x5 y ears. Of note, she had heavy alcohol use, she reports, until about a year ago. She had an echo done at [facility] in September 2015 which demonstrated an LVEF of 49% with an LVEDD of 5.6 cm and no significant valvular abnormalities. For the last year, she reports she has cut down her alco hol use to 1-2 drinks per day. She has not been feeling well for the last 2 weeks and presented [facility] night with her heart racing. She was in a narrow complex tachycardia, which was fou nd to be sinus tachycardia. She feels fatigued and has dyspnea on exertion at 2 blocks. She denies chest pain or syncope. She has mild orthopnea and PND. She denies illicit drug use or early family history of premature heart failure. An echo done last night demonstrates an LVEF of 17% with an LVED D of 6.3 cm and normal right ventricular function. She has mild mitral and tricuspid insufficiency w ith an estimated pulmonary artery systolic pressure of 47 mmHg. Currently, she is resting in her bed in the ICU without rest shortness of breath or chest pain or headache. PAST MEDICAL HISTORY: 2, para 0, last menstrual period 12/06/2016, childhood asthma and hype rtension x5 years. PAST SURGICAL HISTORY: Knee surgery in 2005. CURRENT MEDICATIONS: Coreg 3.125 mg b.i.d., Lasix 20 mg IV x1. ALLERGIES: Codeine and Dilaudid. SOCIAL HISTORY: The patient denies tobacco use. Alcohol history as per HPI. 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 FAMILY HISTORY: Unremarkable for premature heart failure or premature coronary artery disease. REVIEW OF SYSTEMS: The patient reports no recent weight gain or weight loss. She has no TIA or CVA symptoms. She denies GI bleed symptoms such as hematemesis, melena, or bright red blood per rectum. Rest of 10-point review of systems is negative. PHYSICAL EXAM: VITAL SIGNS: Afebrile, pulse 83 and regular, blood pressure 143/100, respirations 21 . Weight 72.5 kg. GENERAL: A normal-appearing woman, in no acute distress without chest pain or us ing accessory respiratory muscles. EYES: Pupils equal, reactive to light. ENT: Oral mucosa with n o cyanosis. NECK: Jugular venous pressure to 7-8 cm. Carotid pulses 2+ bilaterally with no obvious bruits. No thyromegaly noted. LUNGS: Clear to auscultation bilaterally without rales, rhonchi, or wheezing. HEART: Enlarged PMI. Regular rate and rhythm with 1/6 nonradiating systolic murmur and a positive S4 but no S3. ABDOMEN: Soft, nontender. No guarding or rebound. No hepatosplenomegaly. No ascites. EXTREMITIES: 2+ peripheral pulses including femoral and pedal pulses. No edema noted . MUSCULOSKELETAL: No scoliosis. SKIN: No bleeding or cyanosis. NEURO: Normal affect and mood. NECK: No nuchal rigidity. LABS: White count 6.8, hematocrit 44, platelets 184,000, MCV 110. Sodium 138, potassium 4.9, chlori de 101, bicarb 26, BUN 6, creatinine 0.8, glucose 83, AST 135, ALT 116, alkaline phosphatase 118. Tr oponin 0.07. TSH 5.8. IMPRESSION: A 31-year-old woman with new onset severe systolic left ventricular dysfunction. Possib le etiologies could be alcohol toxin related versus hypertension, although she has no left ventricula r hypertrophy on echo, versus post viral exposure. We need to exclude coronary artery disease as an etiology and better understand her hemodynamics. RECOMMENDATIONS: 1. Would continue on Coreg 3.125 mg b.i.d. 2. Would start on lisinopril 5 mg p.o. b.i.d. 3. Would start on Lasix 20 mg IV q.12 hours. 4. Would start on Aldactone 25 mg per day. 5. Would get a troponin now and in 8 hours for 2 more. 6. Would do an INR to check synthetic function of liver. 7. Would check an NT-proBNP level for baseline. 8. Once she is more stable tomorrow, would recommend she undergo a left and right heart catheterizat ion with PCI if clinically needed. 9. After the heart catheterization, if she has no significant coronary artery disease and her right heart hemodynamics are unremarkable, I feel she could probably be transferred out of ICU to a telemet ry bed. Would then keep her for another 24-36 hours to titrate her medications and home probably on Sunday or Sunday, with close followup in the [facility]. 10. Discussed with her the need to completely abstain from all alcohol going forward. Thank you for allowing me to participate in the care of this patient. I will follow along closely wi th you during her hospitalization. Copy requested to: [facility] /[id number]/MODL
[2016-12-09] MEDS ORDERED: ATROPINE SULFATE 1 MG/10 ML SYR IVP PRN (12:16)
--- NOTE | 2016-12-09 12:56 | HOSPPROG ---
Hospitalist Progress Note Assessment/Plan: * New cardiomyopathy * cardiology following * status post heart catheterization * possibly alcohol and hypertension related * getting diuresis * possible excessive alcohol use * patient has multiple clinical findings that would suggest alcoholism. She has elevated MCV. Her LFTs are elevated and she has fatty liver. Her magnesium was low. She also has had a seizure which I think might be alcohol withdrawal. She states she has had a problem with excessive alcohol intake in the past but has gotten better with that. she admits to only 1-2 drinks daily * Seizure * suspect alcohol withdrawal however she is not very tremulous at this time and mentating well. * will get MRI of the brain today * neurology Elizabeth tomorrow * elevated liver function tests * this is been chronic and she has been worked up in the past. * Interiano versus alcoholic liver disease * sinus tachycardia * better with beta-hellen * did receive cardioversion in the emergency department * I think this may be due to combination alcohol withdrawal along with her cardiomyopathy Subjective: currently sleeping. Back from left heart catheterization. No further seizures Objective: Vital Signs Temp Pulse Resp BP Pulse Ox 36.6 C 62 16 111/75 96 12/09/16 12:03 12/09/16 12:34 12/09/16 12:34 12/09/16 12:34 12/09/16 12:34 Laboratory Results 12/09/16 04:19 12/09/16 04:19 12/08/16 12/09/16 12/10/16 05:59 05:59 05:59 Intake Total 560 Balance 560 PT 15.5 SEC (12.0-15.0) H 12/09/16 05:26 INR 1.23 (0.83-1.16) H 12/09/16 05:26 - Physical Exam Constitutional: no apparent distress, appears nourished, not in pain Respiratory: no respiratory distress Neurologic: other ( sleeping) ICD10 Worksheet Patient Problems: Problems Problem Status Diagnosed Cardiomyopathy Acute Tachycardia Acute
[2016-12-09] MEDS: FUROSEMIDE 20 MG/2 ML VIAL IVP SCH ×2 (15:05→15:36)
[2016-12-09] MEDS: SPIRONOLACTONE 25 MG TAB PO SCH (15:05)
--- NOTE | 2016-12-09 21:09 | MR ---
MRI of the Brain (Without Contrast) December 09, 2016 Clinical Indication: New onset seizure.. Technique: T1-weighted images were acquired axially and sagittally from the foramen magnum to the ve rtex. Axial FLAIR, fast T2-weighted, and diffusion-weighted axial images were obtained without contr ast. Findings: Underlying cerebellar and cerebral atrophy is identified for age. No evidence of midline sh ift, herniation, or epidural/subdural hematomas. No intracranial hemorrhage or masses. Diffusion-weig hted sequence demonstrates no acute infarct. Cerebellar tonsils are in normal position. Pituitary gla nd is normal in size. Normal signal flow void in the superior sagittal sinus, basilar artery, and jeane ateral internal carotid arteries indicating patency. Minimal periventricular white matter disease is nonspecific in features. Hippocampal gyri are symmetric. Paranasal sinuses and mastoid air cells are clear. Impression: Underlying cerebral and cerebellar atrophy for age. Otherwise negative MRI of the brain w ithout contrast.
--- NOTE | 2016-12-09 22:40 | CPIP ---
[f rep st] INVASIVE CARDIAC PROCEDURE DATE OF PROCEDURE: 12/09/2016 PROCEDURE PERFORMED: 1. Right and left heart catheterization. 2. Selective coronary angiography. 3. Left ventriculogram. INDICATION/APPROPRIATE USE CRITERIA: The patient presented with new-onset heart failure with an abno rmal EKG and has had chest tightness and pressure occurring at rest consistent with CCS Class IV symp toms of angina, as well as [place] Heart Association class IV symptoms of heart failure. I was aske d to see the patient in consultation by my partner, Dr. David Treviño, for right and left heart cathete rization today. This was planned for yesterday, but the patient ate a meal prior to the procedure. PROCEDURE IN DETAIL: After informed consent was obtained and NPO status was confirmed, approximately 5 cc were used to anesthetize a site of antecubital IV placement in the right antecubital fossa. A similar procedure was repeated for the right radial artery. Approach: A plethysmography and trace a ssist and Dylan test was performed and normal for this patient. The IV was exchanged for a 5-Burmese sheath in the antecubital fossa and into the cephalic vein. Modified Seldinger technique was used to place a 4-Burmese sheath through the right radial artery. The patient then underwent the previously mentioned diagnostic procedures with a flow-directed and balloon-tip [place] catheter. This docume nted a pulmonary capillary wedge pressure of 22, PA pressure of 44/17, RV pressure 47/12 with a right atrial pressure of 12-15. Simultaneous saturations were obtained from the central PA and the arteri al sheath and Trevor cardiac output was calculated at 4.1, index 1.8 L/min/m2. We then turned our atte ntion to the left side. The right coronary artery is dominant, giving rise to a posterior descending , as well as a posterolateral ventricular branch. No flow-limiting obstruction of this 3 mm vessel w as noted. The left main coronary lumen was evaluated with a JL3.5 catheter. This is a 5 mm vessel w hich bifurcates into the LAD and circumflex system, both of which were free of significant flow-limit ing obstruction. MELISSA-3 flow was present throughout. No luminal irregularities to suggest underlyin g atherosclerosis were present. The patient underwent left heart catheterization, demonstrating elev ated left ventricular end-diastolic pressure measured at 20-22 mmHg. The patient underwent left vent riculogram in the VALDIVIA projection, demonstrating severely and globally depressed left ventricular syst olic function with a dilated left ventricle. The visualized portion of thoracic aorta reveals 3 sinu ses of Valsalva most consistent with a trileaflet aortic valve and there was no evidence of aortic st enosis on pullback across aortic valve. SUMMARY OF FINDINGS: This patient has a dilated and nonischemic cardiomyopathy with what appears to be 4 chamber dilation of the cardiac silhouette with definite enlargement of the left ventricular cav ity and severely depressed LV systolic function which is of unknown etiology, but is suspected to be related to poorly-treated hypertension and possible superimposed alcohol-related cardiomyopathy. The patient has been placed on appropriate therapies under the care of Dr. David Treviño and will remain h ere in the hospital until she is proven to be stable. If she develops cardiac rhythm problems, evide nce of nonsustained ventricular tachycardia, or syncope or near syncope, consideration for a LifeVest may be reasonable prior to discharge from the hospital. /[id number]/MODL
[2016-12-10 06:38] LABS: % IMMATURE GRANULYOCYTES 0.2 % (0.0-1.1); ABSOLUTE IMMATURE GRANULOCYTES 0.01 10^3/uL (0.00-0.10); ADD DIFF? NO; ADD MORPH? NO; ADD SCAN? NO; ATYPICAL LYMPHOCYTE FLAG 0 (0-99); FRAGMENT RBC FLAG 0 (0-99); HEMATOCRIT 40.9 % (38.0-47.0); HEMOGLOBIN 13.9 g/dL (12.6-16.3); LEFT SHIFT FLG 0 (0-99); LIPEMIA HEMOLYSIS FLAG 90 (0-99); MEAN CELL HEMOGLOBIN 37.2 pg (27.9-34.1); MEAN CELL VOLUME 109.4 fL (81.5-99.8); MEAN PLATELET VOLUME 10.8 fL (8.7-11.7); PLATELET CLUMPS FLAG 10 (0-99); PLATELET COUNT 153 10^3/uL (150-400); RED BLOOD CELL COUNT 3.74 10^6/uL (4.18-5.33); RED CELL DISTRIBUTION WIDTH 11.9 % (11.5-15.2)
[2016-12-10 07:18] LABS: ALANINE AMINOTRANSFERASE 74 IU/L (9-52); ALBUMIN 2.7 g/dL (3.5-5.0); ALKALINE PHOSPHATASE 112 IU/L (38-126); ANION GAP 8 mEq/L (8-16); ASPARTATE AMINOTRANSFERASE 56 IU/L (14-46); BILIRUBIN,TOTAL 1.8 mg/dL (0.1-1.4); CALCIUM 7.6 mg/dL (8.5-10.4); CARBON DIOXIDE 25 mEq/l (22-31); CHLORIDE 105 mEq/L (97-110); CREATININE 0.7 mg/dL (0.6-1.0); GLOMERULAR FILTRATION RATE > 60; GLUCOSE 80 mg/dL (70-100); MAGNESIUM 1.5 mg/dL (1.6-2.3); POTASSIUM 3.6 mEq/L (3.5-5.2); SODIUM 138 mEq/L (134-144); TOTAL PROTEIN 5.5 g/dL (6.3-8.2)
[2016-12-10] MEDS: CARVEDILOL 3.125 MG TAB PO SCH ×2 (07:57→17:49)
[2016-12-10] MEDS: ACETAMINOPHEN 325 MG TAB PO PRN ×2 (07:58→16:40)
[2016-12-10] MEDS ORDERED: MAGNESIUM SULF 1 GM/DEXTROSE 100 ML IV ONE (08:31)
[2016-12-10] MEDS: FUROSEMIDE 20 MG/2 ML VIAL IVP SCH ×2 (08:53→15:20)
[2016-12-10] MEDS: LISINOPRIL 5 MG TAB PO SCH ×2 (08:53→21:56)
[2016-12-10] MEDS: SPIRONOLACTONE 25 MG TAB PO SCH (08:54)
--- NOTE | 2016-12-10 10:06 | GCON ---
[f rep st] CONSULTATION NEUROLOGIC CONSULTATION REFERRING PHYSICIAN: Jenni Aguilar MD HISTORY OF PRESENT ILLNESS: The patient is a 31-year-old woman whom I am asked to see in neurologic consultation regarding a single seizure. She came to the hospital because of some complaints of shor tness of breath. About 12 hours after she was hospitalized and in the ICU, she had a witnessed gener alized tonic seizure. She had postictal confusion. She had bitten her tongue. There has been no re currence since then. In the course of her evaluation, she has been found to have elevated liver enzy mes, severe nonischemic cardiomyopathy as well as macrocytosis and elevated INR. Brain MRI shows cerebral atrophy inconsistent with her age. The patient has a normal history of and development. No history of significant head trauma. S he says she started drinking in her 20s and admits to drinking excessively for many years. She says she drinks 1 drink now per day, and I asked when she stopped the heavy drinking, and she said 3 years ago. Her said the weekend before she came in, they were having more alcohol where she admit s to having a few shots of alcohol as well as some beers. She has not had evidence of acute alcohol withdrawal or delirium or hallucinations. Liver enzymes ar e starting to improve. The cardiac catheterization showed severe global dysfunction of the heart wit h dilation of the chambers but not ischemic findings. Ejection fraction was around 17% to 20%. She has not had any clear-cut alleviating or exacerbating factors for all of her symptoms. ALLERGIES: Codeine and hydromorphone. MEDICATIONS: At home she takes albuterol for some asthma. PAST MEDICAL HISTORY: She has had some hypertension. FAMILY HISTORY: Negative for seizures. SOCIAL HISTORY: She does not smoke or use drugs. The alcohol is as outlined above. She is employed . REVIEW OF SYSTEMS: A 10-point review of systems unremarkable except for that noted above. PHYSICAL EXAM: VITAL SIGNS: Blood pressure 112/80, pulse of 75, respirations 18, temperature 36.8. GENERAL: She is a well-developed woman in no acute distress. EYES: Clear. NECK: Supple. No bru its or masses. CARDIAC: Regular rate and rhythm. No murmur. NEUROLOGIC EXAMINATION: She is alert and attentive and oriented to person, place, and time and gener al situation. Good concentration and attention and preservation of recent and remote memory as well as general fund of knowledge. Pupils are 4 mm and reactive. Extraocular movements are intact. Norm al facial sensation and strength. Motor exam: Normal muscle bulk and tone. 5/5 strength with no abn ormal movements. Sensation is preserved for temperature and light touch. Reflexes are 1+. Her gait is steady. She is able to walk heel to toe. LABORATORY DATA: I reviewed her laboratory studies and described them above. I reviewed the brain MRI that shows a surprising amount of generalized cerebellar atrophy. IMPRESSION: This patient has experienced a single generalized tonic-clonic seizure in the history of longstanding alcohol use including excessive use in the past and periodic binge drinking and now sti ll daily drinks of one per day. She probably had alcohol withdrawal-related seizure. The cerebral a trophy, elevated liver enzymes, cardiomyopathy all point toward chronic alcohol use although the diff erential considerations would include a viral syndrome. I told her that complete cessation of alcohol is essential. She has a chance to improve. There is n ot an indication for anticonvulsant therapy at this point. She will contact me if she has any seizur es. I am happy to follow up with her as needed. /[id number]/MODL
--- NOTE | 2016-12-10 13:52 | PDCARPN ---
Cardiology Progress Note Assessment/Plan: Assessment:1. non ischemic and dilated cardiomyopathy likely related to alcohol excess and hypertension which has not been treated. I agree with the hospitalist 's assessment that this is very likely related to excess alcohol. Continue diuresis and medical management. consiser Life Vest at discharge if indicated. This may be hard given the patient's self pay status. Plan: As above. 12/10/16 13:49 12/10/16 13:52 Reviewed/Discussed With: family, multidisciplinary team Objective: Vital Signs (8 Hrs) Temp Pulse Resp BP Pulse Ox 12/10/16 11:49 36.7 C 91 19 119/84 H 93 12/10/16 09:34 36.4 C 92 15 111/86 H 92 12/10/16 07:59 75 18 112/80 97 12/10/16 07:57 81 112/80 Intake/Output (24 Hrs) 12/09/16 12/10/16 12/11/16 05:59 05:59 05:59 Intake Total 560 1200 Balance 560 1200 Intake: Oral (ml) 500 1200 IV Intake (ml) 60 Other: Number of Voids Toilet 2 6 Result Diagrams: 12/10/16 06:30 12/10/16 06:30 Cardiac Labs: Cardiac Lab Results (72 Hrs) 12/08/16 12/08/16 22:10 15:20 Troponin I 0.030 0.044 H Telemetry: NO dysrhythmia ICD10 Worksheet Patient Problems: Problems Problem Status Diagnosed Cardiomyopathy Acute Seizure Acute Tachycardia Acute
[2016-12-10] MEDS ORDERED: MAGNESIUM SULF 2 GM/WATER 50 ML IV ONE (14:25)
--- NOTE | 2016-12-10 15:27 | HOSPPROG ---
Hospitalist Progress Note Assessment/Plan: * New cardiomyopathy * cardiology following * status post heart catheterization * possibly alcohol and hypertension related * getting diuresis * possible excessive alcohol use * patient has multiple clinical findings that would suggest alcoholism. She has elevated MCV. Her LFTs are elevated and she has fatty liver. Her magnesium was low. She also has had a seizure which I think might be alcohol withdrawal. She states she has had a problem with excessive alcohol intake in the past but has gotten better with that. she admits to only 1-2 drinks daily * Seizure * suspect alcohol withdrawal however she is not very tremulous at this time and mentating well. * MRI does show premature atrophy consistent with alcohol effects * neurology input appreciated * elevated liver function tests * this is been chronic and she has been worked up in the past. * Interiano versus alcoholic liver disease * sinus tachycardia * better with beta-hellen * did receive cardioversion in the emergency department * I think this may be due to combination alcohol withdrawal along with her cardiomyopathy Subjective: Breathing feels pretty good. No new complaints Objective: Vital Signs Temp Pulse Resp BP Pulse Ox 36.7 C 91 19 119/84 H 93 12/10/16 11:49 12/10/16 11:49 12/10/16 11:49 12/10/16 11:49 12/10/16 11:49 Laboratory Results 12/10/16 06:30 12/10/16 06:30 12/09/16 12/10/16 12/11/16 05:59 05:59 05:59 Intake Total 560 1200 Balance 560 1200 PT 15.5 SEC (12.0-15.0) H 12/09/16 05:26 INR 1.23 (0.83-1.16) H 12/09/16 05:26 discussed with Cardiology and Neurology - Physical Exam Constitutional: no apparent distress, appears nourished, not in pain Eyes: anicteric sclera, EOMI Ears, Nose, Mouth, Throat: moist mucous membranes Cardiovascular: regular rate and rhythym Respiratory: no respiratory distress Neurologic: AAOx3 Psychiatric: interacting appropriately, not anxious, not encephalopathic, thought process linear ICD10 Worksheet Patient Problems: Problems Problem Status Diagnosed Cardiomyopathy Acute Seizure Acute Tachycardia Acute
[2016-12-11 05:32] LABS: ANION GAP 7 mEq/L (8-16); CALCIUM 8.4 mg/dL (8.5-10.4); CARBON DIOXIDE 29 mEq/l (22-31); CHLORIDE 101 mEq/L (97-110); CREATININE 0.7 mg/dL (0.6-1.0); GLOMERULAR FILTRATION RATE > 60; GLUCOSE 92 mg/dL (70-100); MAGNESIUM 1.8 mg/dL (1.6-2.3); POTASSIUM 3.7 mEq/L (3.5-5.2); SODIUM 137 mEq/L (134-144)
[2016-12-11] MEDS ORDERED: MAGNESIUM SULF 1 GM/DEXTROSE 100 ML IV ONE (05:49)
[2016-12-11] MEDS: ACETAMINOPHEN 325 MG TAB PO PRN (06:21)
[2016-12-11] MEDS: FUROSEMIDE 20 MG/2 ML VIAL IVP SCH ×2 (08:46→15:29)
[2016-12-11] MEDS: CARVEDILOL 3.125 MG TAB PO SCH (08:47)
[2016-12-11] MEDS: LISINOPRIL 5 MG TAB PO SCH (08:47)
[2016-12-11] MEDS: SPIRONOLACTONE 25 MG TAB PO SCH (08:47)
[2016-12-11 12:47] VITALS: TEMP 97.8; O2SAT 92
--- NOTE | 2016-12-11 13:42 | CPEKG ---
Heart Rate: 97 RR Interval: 619 P-R Interval: 160 QRSD Interval: 154 QT Interval: 428 QTC Interval: 544 P Rufe: 66 QRS Rufe: -68 T Wave Rufe: 72 EKG Severity - ABNORMAL ECG - EKG Impression: SINUS RHYTHM EKG Impression: PROBABLE LEFT ATRIAL ABNORMALITY EKG Impression: NONSPECIFIC IVCD WITH LAD EKG Impression: LEFT VENTRICULAR HYPERTROPHY EKG Impression: LATERAL Q WAVES, PROBABLY NORMAL VARIATION Electronically Signed By: Walter Gonzales 11-Dec-2016 19:54:07
[2016-12-11 15:49] VITALS: BP 120/95; PULSE 105; RESP 7
--- NOTE | 2016-12-11 17:00 | PDCARPN ---
Cardiology Progress Note Chief Complaint: Patient denies of any complaints today. Reports she is ready to go home. Assessment/Plan: Assessment: 31-year-old female admitted for shortness of breath and elevated heart rate on December 07, noted to be in wide complex tachycardia, attempted cardioversion, but then felt that this was sinus tachycardia with interventricular conduction delay by EP services. noted to have mildly dilated LV with EF 15-20% with mild MR and TR, RVSP of 47 mm Hg off of echocardiogram done on 12/07/2016. Electrocardiogram on admission showed sinus rhythm interventricular conduction delay. Underwent right and left heart catheterization on 12/09/[address] Gonzales, finding no flow limiting disease, LV EDP of 20-22, with severely reduced global depressed LV systolic function and dilated LV. Right heart pressures were PCWP 22, PA 44/17, RV 47/12 RA 12-15, CO 4.1 with an index of 1.8. She has been maximized on medical therapy starting on carvedilol, lisinopril, Aldactone. She had initially been started on diuresis the IV Lasix , and transferred over to oral. She reports significant improvement in her dyspnea on exertion. She has had no further arrhythmias noted since her hospital admission His thought her cardiomyopathies due to uncontrolled hypertension in EtOH use. She has been able to walk around the unit 3-4 times without stopping of shortness of breath. Reports her symptoms have significantly improved since hospitalization. Today's electrocardiogram is unchanged from previous. Plan: 1. Systolic heart failure, nonischemic cardiomyopathy: New diagnosis. Experiencing NYHA class II symptoms. Has been started on carvedilol, lisinopril , Aldactone, and Lasix. Will continue this as an out patient. Potentially up titrating over the next few weeks. Will plan for her to have a repeat echocardiogram in approximately 3 months after maintaining maximum medical therapy. She has been encouraged absent of alcohol, compliance with medications , daily BP and heart rate log, and daily weights, she is to notify [facility] if she gains more than 2 lb in a day or 5 lb in a week. She has a follow- up appointment set with Dr. De León on December 19. Have asked her to get a repeated basic metabolic panel today before her office appointment. Discussed with Dr. De León, question need of life vest, hold off at this time, and re- evaluated once she is seen in office. Patient planning to be discharged today. 12/11/16 16:57 Subjective: Patient denies of any chest pain, palpitations, lightheadedness, near-syncope, or syncopal events. The reports improvement in shortness of breath, can walk 2 laps around telemetry unit without any symptoms. Reviewed/Discussed With: hospitalist (Dr Aguilar), other (Dr Treviño) Objective: Vital Signs (8 Hrs) Temp Pulse Resp BP Pulse Ox 12/11/16 15:47 36.6 C 105 H 7 L 120/95 H 92 12/11/16 12:45 36.6 C 93 24 H 123/83 H 92 12/11/16 11:13 85 L Intake/Output (24 Hrs) 12/10/16 12/11/16 12/12/16 05:59 05:59 05:59 Intake Total 1200 850 Balance 1200 850 Intake: Oral (ml) 1200 700 IV Intake (ml) 50 IV Infused (ml) 100 Magnesium Sulf 1 gm/ 50 Dextrose 100 ml @ 100 mls /hr IV ONCE ONE Rx#: [id number] Magnesium Sulf 2 gm/Water 50 50 ml @ 50 mls/hr IV ONCE ONE Rx#:[id number] Other: Weight 79.1 kg Intake Quantity Yes Sufficient Number of Voids Toilet 6 2 Result Diagrams: 12/10/16 06:30 12/11/16 04:51 Cardiac Labs: Cardiac Lab Results (72 Hrs) 12/08/16 22:10 Troponin I 0.030 - Physical Exam Constitutional: WDWN, healthy appearing Cardiovascular: regular rate and rhythm, no rubs, no gallops, pulses symmetric bilat, No jugular vein distention Peripheral Pulses: 1+: dorsalis-pedis (R), dorsalis-pedis (L), 2+: carotid (R), carotid (L) Respiratory: clear to auscultate bilat, no crackles, no wheezes, No reduced air movement Gastrointestinal: normoactive bowel sounds Skin: no rashes, no abrasions, warm Neurologic: AAOx3, CN II-XII grossly intact Psychiatric: cooperative ICD10 Worksheet Patient Problems: Problems Problem Status Diagnosed Cardiomyopathy Acute Seizure Acute Tachycardia Acute
--- NOTE | 2016-12-11 19:41 | GDS ---
[f rep st] DISCHARGE SUMMARY DISCHARGE DIAGNOSES: 1. Nonischemic cardiomyopathy probably related to hypertension and alcohol. 2. Seizure possibly related to alcohol withdrawal. 3. Elevated liver function tests with hepatosteatosis. 4. Hypomagnesemia. HISTORY: This is a 31-year-old female who presented with heart palpitations and shortness of breath. HOSPITAL COURSE: The patient actually presented with significant amounts of tachycardia. Cardiology was consulted and they were unsure if this was sinus tachycardia or an atrial arrhythmia. She waqar bauman was cardioverted and was found to be in sinus tachycardia. An echocardiogram then revealed an EF of 15-20%. She was then diuresed. She had a cardiac cath which showed clean coronary arteries. Kriss gotti also had an MRI of the brain which showed cerebral and cerebellar atrophy that would be consistent with alcohol toxicity. Neurology was consulted and agreed that no therapy should be done for her lorenzo egan. She will be discharged home with close followup with Cardiology. DISPOSITION: Home. DISCHARGE MEDICATIONS: She is to resume her home medicines. In addition, she has been given Lasix, carvedilol, spironolactone, and lisinopril. FOLLOWUP INSTRUCTIONS: She is instructed to follow up with Cardiology in 7 days. /[id number]/MODL
--- NOTE | 2016-12-14 11:53 | PQFORM ---
PHYSICIAN QUERY FORM Needs Your Response This query form is being sent to you to assure this patient record is coded properly. Please respond to the question below: BEAVER TRAPPER QUESTION: Dr. Aguilar, The diagnosis of Systolic Heart Failure is documented in the Cardiology progress note dated 12/11/16, prior to the patient's discharge.~ Would this be appropriate as an additional diagnosis on the discharge summary? Yes x No Other Clinically Undetermined Many thanks, SHANKAR Germain HIM/Coding Department INSTRUCTIONS FOR RESPONSE: Answer question by clicking on the "Edit Document" button. Move cursor to area below the stars. When complete, hit "Save." Click on the "Sign" button, then click "Sign" again. Type in your PIN and hit "Enter." MTDD
== END 2016-12-11 17:07 | disposition home or self-care (01) | DRG 287 ==
LOC: INTOOBSV 18:36 → F2N 22:16 → OBSVTOIN 12-08 14:15 → F2W 12-10 09:33
PROVIDERS: ADMIT Internal Medicine; ATTEND Internal Medicine
DX: I47.2 Ventricular tachycardia (principal); I50.20 Unspecified systolic (congestive) heart failure; I51.7 Cardiomegaly; I10 Essential (primary) hypertension; F10.230 Alcohol dependence with withdrawal, uncomplicated; R79.89 Other specified abnormal findings of blood chemistry; R56.9 Unspecified convulsions; K75.81 Nonalcoholic steatohepatitis (NASH); J90 Pleural effusion, not elsewhere classified; R91.1 Solitary pulmonary nodule; G31.9 Degenerative disease of nervous system, unspecified; J45.909 Unspecified asthma, uncomplicated; E66.9 Obesity, unspecified; E83.42 Hypomagnesemia; Z79.51 Long term (current) use of inhaled steroids; Z68.25 Body mass index [BMI] 25.0-25.9, adult
CPT/HCPCS: 80305; 82607-90; 83921-90; 96374; G0378; J0153; J1644; J2250; J2405; J2704; J3010; J3475; Q9967

== ENCOUNTER 2016-12-28 09:55 | Inpatient (IN) | payer SELFPAY ==
[2016-12-28 10:46] LABS: COLOR AMBER; LEUKOCYTE ESTERASE,URINE NEGATIVE (NEGATIVE); NITRITE,URINE NEGATIVE (NEGATIVE)
[2016-12-28 10:51] LABS: MUCUS 4+ /lpf (NONE-1+)
[2016-12-28 10:54] LABS: BACTERIA NONE SEEN /hpf (NONE SEEN); RBC,URINE NONE SEEN /hpf (0-3)
--- NOTE | 2016-12-28 11:16 | EDPHY ---
H & P Stated Complaint: abd pain back pain Time Seen by Provider: 12/28/16 10:05 HPI/ROS: CHIEF COMPLAINT: right-sided abdominal pain, flank pain HISTORY OF PRESENT ILLNESS: 31-year-old female presents emergency department sent from urgent care with right-sided abdominal pain. Patient was told she had blood in her urine in should come to the emergency department. Patient reports yesterday at work she lifted a 5 gal water jug and twisted, she says she felt a pulling sensation in the right side of her abdomen later that evening when she got home. Patient states last night she recheck to lift up some plates when she felt another hole in her right lower quadrant and felt like she needed to have a bowel movement. She went to the bathroom and had sudden onset severe right-sided abdominal pain and felt like it radiated to her back. Patient had 1 episode of emesis last night she thinks due to the severe pain, 1 episode again this morning with pain. Patient reports the pain is constant, sharp, pressure and aching in nature. She has no appetite, eat saltines this morning and reports the pain was not worse after the saltines. She denies nausea. Last bowel movement was yesterday and was normal. She denies urinary frequency, urgency, dysuria. No vaginal discharge. Patient was recently discharged from the hospital 3 weeks ago where she had a stay and was diagnosed for nonischemic cardiomyopathy probably related to hypertension and alcohol, elevated LFTs with hepatic steatosis. Patient had a normal cardiac catheterization, not echocardiogram that showed an EF of 15-20%. Patient also had a seizure thought to be related to alcohol withdrawal. Patient is seeing Dr. Treviño with Cardiology. She has not had any alcohol since discharge from the hospital. Patient is taking carvedilol, spironolactone, lisinopril and Lasix. She denies chest pain, shortness of breath, no fevers. REVIEW OF SYSTEMS: A comprehensive 10 point review of systems is otherwise negative aside from elements mentioned in the history of present illness. Source: Patient Exam Limitations: No limitations - Personal History LMP (Females 10-55): 8-14 Days Ago Current Tetanus/Diphtheria Vaccine: Unsure Current Tetanus Diphtheria and Acellular Pertussis (TDAP): Unsure - Medical/Surgical History Hx Asthma: Yes Hx Chronic Respiratory Disease: No Hx Diabetes: No Hx Cardiac Disease: No Hx Renal Disease: No Hx Cirrhosis: No Hx Alcoholism: No Hx HIV/AIDS: No Hx Splenectomy or Spleen Trauma: No Other PMH: asthma - Social History Smoking Status: Never smoked Constitutional: Initial Vital Signs Temperature (C) 36.8 C 12/28/16 09:59 Heart Rate 95 12/28/16 09:59 Respiratory Rate 16 12/28/16 09:59 Blood Pressure 148/94 H 12/28/16 09:59 O2 Sat (%) 96 12/28/16 09:59 O2 Delivery Mode Nasal Cannula O2 (L/minute) 2 Allergies/Adverse Reactions: codeine Allergy (Mild, Verified 12/28/16 15:03) Other-Enter Comments Home Medications: Medication Instructions Recorded Albuterol Hfa Anes Only [Proair 1 - 2 puffs IH QID 12/07/16 Hfa Icu (*)] EPINEPHRINE [EPIPEN] 0.3 mg IM ONCE 12/07/16 Loteprednol Etabonate [Alrex] 1 drop EACHEYE BID PRN 12/07/16 Carvedilol [Coreg (*)] 3.125 mg PO BIDMEAL #60 tab 12/11/16 Lisinopril [Zestril 5 mg (*)] 5 mg PO BID #60 tab 12/11/16 Spironolactone [Aldactone 25 MG 25 mg PO DAILY #30 tab 12/11/16 (*)] Furosemide [Lasix 20 MG (*)] 20 mg PO DAILY 12/28/16 Medical Decision Making - Diagnostics Imaging: Abdominal ultrasound- IMPRESSION: 1. Diffuse hepatocellular abnormality, most likely related to steatosis with areas of fat-sparing, similar to the previous study of 10/20/15. 2. Normal sonographic appearance of the kidneys. This does not exclude the diagnosis of pyelonephritis. Results were discussed with Mami Arriaga, Nurse Practitioner. A test result has been communicated to a licensed care provider and documented in the [employer] Critical Result system on 12/28/2016 12:23, Message ID [id number]. Dictated By: John Paul Parker MD CT abdomen pelvis with IV contrast- Impression: 1. Multiple peripheral wedge-shaped defects in the right kidney suggesting renal infarcts. This could be secondary to vasculitis. Embolic infarcts would be less likely with the lack of other findings in the abdomen and pelvis. 2. IUD is seen malpositioned in the uterus at the lower uterine segment and the right limb may be through the right myometrium. Results called to Mami Arriaga NP on 28 December 2016 at 1355 hours. Dictated By: Al Jasso MD ED Course/Re-evaluation: IV established, CBC, chemistry panel, LFTs, lipase and urinalysis been ordered. Patient is given 1 mg Dilaudid IV and 4 mg of Zofran. Urinalysis reveals no blood, 5-10 WBCs. Abdominal ultrasound has been ordered. 12pm-CBC shows an elevated white blood cell count at 15,500 with a left shift, H &H are 53.5 and 18.6. Patient's lipase is 76. Total bilirubin is 1.7, down from 3.0 on December 08. AST is 114, on December 10 it was 56 and on December 08 that was 135. ALT is 79, down from 116 on December 08. Urinalysis shows 5-10 WBCs, no blood. Abdominal ultrasound shows no abnormalities. CT abdomen pelvis with IV contrast has been ordered. This shows Multiple peripheral wedge-shaped defects in the right kidney suggesting renal infarcts. This could be secondary to vasculitis. Embolic infarcts would be less likely with the lack of other findings in the abdomen and pelvis. I will page Nephrology and the hospitalist for admission. 215pm- I spoke with Dr. Perry with Nephrology who is recommending starting heparin drip and speaking with Cardiology. 230pm-I spoke with Dr. Lowell Brown from Cardiology he agrees with plan for heparin drip and will see her in the hospital. Patient has been admitted to Hospital Medicine for further evaluation. - Data Points Laboratory Results: Laboratory Results 12/28/16 10:45 12/28/16 10:45 12/28/16 12/28/16 10:45 10:30 WBC 15.49 H 10^3/uL (3.80-9.50) RBC 5.13 10^6/uL (4.18-5.33) Hgb 18.6 H g/dL (12.6-16.3) POC Hgb 20.1 H* gm/dL (12.3-15.9) Hct 53.5 H % (38.0-47.0) POC Hct 59 H % (35.5-47.5) MCV 104.3 H fL (81.5-99.8) MCH 36.3 H pg (27.9-34.1) MCHC 34.8 g/dL (32.4-36.7) RDW 11.7 % (11.5-15.2) Plt Count 223 10^3/uL (150-400) MPV 10.6 fL (8.7-11.7) Neut % (Auto) 81.6 H % (39.3-74.2) Lymph % (Auto) 10.5 L % (15.0-45.0) [place] % (Auto) 7.1 % (4.5-13.0) Eos % (Auto) 0.0 L % (0.6-7.6) Baso % (Auto) 0.3 % (0.3-1.7) Nucleat RBC Rel Count 0.0 % (0.0-0.2) Absolute Neuts (auto) 12.64 H 10^3/uL (1.70-6.50) Absolute Lymphs (auto) 1.63 10^3/uL (1.00-3.00) Absolute Monos (auto) 1.10 H 10^3/uL (0.30-0.80) Absolute Eos (auto) 0.00 L 10^3/uL (0.03-0.40) Absolute Basos (auto) 0.05 10^3/uL (0.02-0.10) Absolute Nucleated RBC 0.00 10^3/uL (0-0.01) Immature Gran % 0.5 % (0.0-1.1) Immature Gran # 0.07 10^3/uL (0.00-0.10) ESR 6 MM/HR (0-20) POC Sodium 138 mEq/L (134-144) Sodium 141 mEq/L (134-144) POC Potassium 4.2 mEq/L (3.3-5.0) Potassium 4.6 mEq/L (3.5-5.2) POC Chloride 99 mEq/L (96-108) Chloride 99 mEq/L (97-110) Carbon Dioxide 27 mEq/l (22-31) Anion Gap 15 mEq/L (8-16) POC BUN 10 mg/dL (7-23) BUN 11 mg/dL (7-23) Creatinine 0.9 mg/dL (0.6-1.0) POC Creatinine 0.9 mg/dL (0.6-1.2) Estimated GFR > 60 Glucose 108 H mg/dL (70-100) POC Glucose 114 H mg/dL (70-100) Calcium 10.3 mg/dL (8.5-10.4) Total Bilirubin 1.7 H mg/dL (0.1-1.4) Conjugated Bilirubin 0.6 H mg/dL (0.0-0.5) Unconjugated Bilirubin 1.1 mg/dL (0.0-1.1) AST 114 H IU/L (14-46) ALT 79 H IU/L (9-52) Alkaline Phosphatase 98 IU/L (38-126) C-Reactive Protein 7.8 mg/L (<10.0) Total Protein 8.8 H g/dL (6.3-8.2) Albumin 4.9 g/dL (3.5-5.0) Lipase 76.0 IU/L (23-300) Urine Color TIFFANIE Urine Appearance HAZY Urine pH 5.0 (5.0-7.5) Ur Specific [place] 1.027 (1.002-1.030) Urine Protein 2+ H (NEGATIVE) Urine Ketones TRACE H (NEGATIVE) Urine Blood NEGATIVE (NEGATIVE) Urine Nitrate NEGATIVE (NEGATIVE) Urine Bilirubin NEGATIVE (NEGATIVE) Urine Urobilinogen NEGATIVE EU (0.2-1.0) Ur Leukocyte Esterase NEGATIVE (NEGATIVE) Urine RBC NONE SEEN /hpf (0-3) Urine WBC 5-10 H /hpf (0-3) Ur Epithelial Cells TRACE /lpf (NONE-1+) Urine Bacteria NONE SEEN /hpf (NONE SEEN) Urine Mucus 4+ H /lpf (NONE-1+) Ur Culture Indicated? NOT INDICATED (NI) Urine Glucose NEGATIVE (NEGATIVE) Medications Given: Discontinued Medications Heparin Sodium (Porcine) (Heparin Injection) 0 unit IVP EDNOW ONE PRN Reason: Protocol Stop: 12/28/16 14:21 Last Admin: 12/28/16 15:22 Dose: 4,500 units Hydromorphone HCl (Dilaudid) 1 mg IVP EDNOW ONE Stop: 12/28/16 11:32 Last Admin: 12/28/16 11:34 Dose: 1 mg Hydromorphone HCl (Dilaudid) 0.5 mg IVP EDNOW ONE Stop: 12/28/16 14:12 Last Admin: 12/28/16 14:22 Dose: 0.5 mg Heparin Sodium (Porcine) (Heparin 50 Units/Ml (Premix)) 500 mls @ 0 mls/hr IV EDNOW ONE; Per Protocol PRN Reason: Protocol Stop: 12/28/16 14:21 Last Admin: 12/28/16 15:22 Dose: 500 mls Ondansetron HCl (Zofran) 4 mg IVP EDNOW ONE Stop: 12/28/16 11:32 Last Admin: 12/28/16 11:25 Dose: 4 mg Point of Care Test Results: 12/28/16 10:45 POC Sodium 138 POC Potassium 4.2 POC Chloride 99 POC BUN 10 POC Creatinine 0.9 POC Glucose 114 H Departure - Departure Disposition: [facility] Inpatient Acute Clinical Impression: Renal infarction Condition: Fair
[2016-12-28] MEDS ORDERED: HYDROmorphONE/DILAUDID 1 MG/ML SYR ONE (11:17)
[2016-12-28] MEDS ORDERED: ONDANSETRON 4 MG/2 ML VIAL ONE (11:17)
[2016-12-28] MEDS ORDERED: ONDANSETRON 4 MG/2 ML VIAL IVP ONE (11:31)
[2016-12-28] MEDS ORDERED: HYDROmorphONE/DILAUDID 1 MG/ML SYR IVP ONE ×2 (11:31→14:11)
[2016-12-28 11:38] LABS: % IMMATURE GRANULYOCYTES 0.5 % (0.0-1.1); ABSOLUTE IMMATURE GRANULOCYTES 0.07 10^3/uL (0.00-0.10); ADD DIFF? NO; ADD MORPH? NO; ADD SCAN? NO; ATYPICAL LYMPHOCYTE FLAG 0 (0-99); FRAGMENT RBC FLAG 0 (0-99); HEMATOCRIT 53.5 % (38.0-47.0); HEMOGLOBIN 18.6 g/dL (12.6-16.3); LEFT SHIFT FLG 0 (0-99); LIPEMIA HEMOLYSIS FLAG 90 (0-99); MEAN CELL HEMOGLOBIN 36.3 pg (27.9-34.1); MEAN CELL HEMOGLOBIN CONCENTR. 34.8 g/dL (32.4-36.7); MEAN CELL VOLUME 104.3 fL (81.5-99.8); MEAN PLATELET VOLUME 10.6 fL (8.7-11.7); PLATELET CLUMPS FLAG 0 (0-99); PLATELET COUNT 223 10^3/uL (150-400); RED BLOOD CELL COUNT 5.13 10^6/uL (4.18-5.33); RED CELL DISTRIBUTION WIDTH 11.7 % (11.5-15.2)
[2016-12-28 11:44] LABS: ALANINE AMINOTRANSFERASE 79 IU/L (9-52); ALBUMIN 4.9 g/dL (3.5-5.0); ALKALINE PHOSPHATASE 98 IU/L (38-126); ANION GAP 15 mEq/L (8-16); ASPARTATE AMINOTRANSFERASE 114 IU/L (14-46); BILIRUBIN,TOTAL 1.7 mg/dL (0.1-1.4); BILIRUBIN-CONJUGATED 0.6 mg/dL (0.0-0.5); BILIRUBIN-UNCONJUGATED 1.1 mg/dL (0.0-1.1); CALCIUM 10.3 mg/dL (8.5-10.4); CARBON DIOXIDE 27 mEq/l (22-31); CHLORIDE 99 mEq/L (97-110); CREATININE 0.9 mg/dL (0.6-1.0); GLOMERULAR FILTRATION RATE > 60; GLUCOSE 108 mg/dL (70-100); POTASSIUM 4.6 mEq/L (3.5-5.2); SODIUM 141 mEq/L (134-144); TOTAL PROTEIN 8.8 g/dL (6.3-8.2)
--- NOTE | 2016-12-28 12:25 | US ---
Complete Abdominal Ultrasound CLINICAL HISTORY: 31-year-old female with some right CVA tenderness and 5-10 white blood cells seen i n her urine. The patient has an alcohol abuse history, although "quit 3 weeks ago." TECHNIQUE: A curvilinear 5 MHz transducer was used to sonographically evaluate the upper abdomen. Col or Doppler was used. COMPARISON STUDY: Right upper quadrant abdominal sonography, dated 10/20/15. FINDINGS: The pancreatic contour is normal. There is limited assessment of the pancreatic tail second gissel to overlying bowel gas. The abdominal aorta is normal in size, and tapers normally. The visualize d IVC is normal in caliber. The hepatic vein trifurcation is normal. The main portal vein is patent. The liver is normal in size, measuring 14.9 cm along the right midaxillary line. As on the preceding study, there is heterogeneity with areas of increased and diminished echogenicity, likely related to steatosis with areas of focal fat-sparing, although features can also be seen in individuals with chr onic hepatitis and cirrhosis. There is no intra or extrahepatic bile duct dilatation. The common bile duct measures 3.0 mm. The gallbladder is moderately distended, and there is no evidence of cholelit hiasis, sludge, polyp, wall thickening, pericholecystic fluid, or sonographic Ibarra sign. The gallbl adder wall thickness is 1.6 mm. The right and the left kidneys are normal in size, shape, and contour , with a normal renal cortical thickness, and no focal renal mass or hydronephrosis. The right kidney measures 11.5 x 5.5 x 4.6 cm, and the left kidney measures 11.2 x 5.6 x 4.6 cm. The spleen is normal in size and homogeneous in echotexture, measuring 8.6 x 3.6 x 9.6 cm. There is no ascites or pleural effusion. IMPRESSION: 1. Diffuse hepatocellular abnormality, most likely related to steatosis with areas of fat-sparing, si milar to the previous study of 10/20/15. 2. Normal sonographic appearance of the kidneys. This does not exclude the diagnosis of pyelonephriti s. Results were discussed with Mami Arriaga, Nurse Practitioner. A test result has been communicated to a licensed care provider and documented in the [facility] Result system on 12/28/2016 12:23, Message ID [id number].
[2016-12-28] MEDS ORDERED: IOPAMIDOL (ISOVUE-300) 100 ML BTL IV ONE (12:30)
--- NOTE | 2016-12-28 14:09 | CT ---
CT Scan of the Abdomen and Pelvis (With Contrast) on 28 December 2016 at 1259 hours Indication: Right-sided abdominal pain. CVA tenderness. Elevated white blood cell count. Technique: 90 mL of Isovue 300 were given intravenously by machine power injection. Multidetector he lical CT imaging was performed from the diaphragm to the symphysis pubis. Dose reduction techniques w ere utilized. Delayed images were also obtained through the kidneys. Findings: Abdomen: The lung bases are clear. Decreased attenuation of the liver indicating fatty infiltration. Gallbladder is unremarkable. Pancreas is normal in size and appearance. Spleen is unremarkable. Both adrenal glands are normal in size and appearance. Multiple peripheral wedge-shaped defects are seen in the right kidney suggesting renal infarct. No evidence for hydronephrosis. Left kidney is normal i n appearance. No significant abdominal lymphadenopathy. Pelvis: IUD is seen in the uterus. The right limb may be through the right myometrium. The IUD is lo w in the lower uterine segment. No significant free fluid in the pelvis or free intraperitoneal air. No evidence for diverticulitis. Appendix is normal in size and appearance. Mild degenerative disk and degenerative joint disease is seen in the lumbar spine. Impression: 1. Multiple peripheral wedge-shaped defects in the right kidney suggesting renal infarcts. This could be secondary to vasculitis. Embolic infarcts would be less likely with the lack of other findings in the abdomen and pelvis. 2. IUD is seen malpositioned in the uterus at the lower uterine segment and the right limb may be thr ough the right myometrium. Results called to Mami Arriaga NP on 28 December 2016 at 1355 hours.
[2016-12-28] MEDS ORDERED: HEPARIN/DEXTROSE 500 ML IV ONE (14:20)
[2016-12-28] MEDS ORDERED: HEPARIN 10,000 UNIT/10 ML MDV IVP ONE ×2 (14:20→17:09)
[2016-12-28 14:42] LABS: INR 1.02 (0.83-1.16); PROTIME(PATIENT) 13.3 SEC (12.0-15.0)
[2016-12-28 14:43] LABS: APTT 26.9 SEC (23.0-38.0)
[2016-12-28 15:37] LABS: HEMATOCRIT 54.5 % (38.0-47.0)
--- NOTE | 2016-12-28 16:44 | ECHO ---
[id number] + + [address] : : [place] [address] : : [phone] + + Adult Echocardiographic Report + -----+ :Name: JANNA PADILLA LStudy Date: 12/28/2016 03:53 PM : : Hospital Admission Number: [id number] [place] n: ER: :: 1985 Gender: Female : :Age: 31 yrs Race: WH : :Reason For Study: Question embolism : + -----+ Left Ventricle Mobile thrombus visualized near the LV anterior/septal valentine measuring approximately 2.38 in length. Conclusion Limited 2-D echo. Unchanged severely reduced LV systolic function. Mobile thrombus visualized near the LV anterior/septal valentine measuring approximately 2.38 in length. Final Reading Physician: Fariha Hummel signed on 12/28/2016 04:44 PM Ordering Physician: Jenni Aguilar Performed By: Marah Paulino, IHSAN
[2016-12-28] MEDS ORDERED: ONDANSETRON 4 MG/2 ML VIAL IVP PRN (17:06)
[2016-12-28] MEDS ORDERED: ONDANSETRON DISINTEGRATING 4 MG TAB PO PRN (17:06)
[2016-12-28] MEDS ORDERED: ACETAMINOPHEN 325 MG TAB PO PRN (17:06)
[2016-12-28] MEDS ORDERED: LOTEPREDNOL ETABONATE EACHEYE PRN (17:08)
[2016-12-28] MEDS: CARVEDILOL 3.125 MG TAB PO SCH (17:54)
[2016-12-28] MEDS: HYDROmorphONE/DILAUDID 1 MG/ML SYR IVP PRN ×2 (17:55→22:06)
--- NOTE | 2016-12-28 18:11 | GHP ---
[f rep st] HISTORY AND PHYSICAL DATE OF ADMISSION: 12/28/2016 CHIEF COMPLAINT: Right flank pain. HISTORY OF PRESENT ILLNESS: This is a 31-year-old female who is known to our service. She presented last month with severe nonischemic cardiomyopathy. This is thought to be due to both hypertension a nd possibly alcohol. She was discharged and was being followed by the [facility]. She says she has been doing fairly well, but yesterday was moving something and felt some right flank pain. That nigh t she seemed to have sudden worsening of that pain with lower abdominal pain and flank pain. Associa isak with some chills and it was quite severe. She then came to the emergency department this morning . She is found to have some renal infarcts. She did not admit to any focal weakness. She says that once in a while she gets shimmers in her eyes and has a throbbing headache. This is not constant how ever. She sometimes gets a little bit dizzy as well with that she believes it is the heart failure m edications. Otherwise, no neurological symptoms. She did have a seizure last time she was here and it was thought to be due to alcohol withdrawal. She has not had any similar issues. She has been ab stinent of alcohol since her discharge as well. REVIEW OF SYSTEMS: A 10-point review of systems was obtained and negative. PAST MEDICAL HISTORY: 1. Nonischemic cardiomyopathy. 2. Chronic elevated liver function tests and fatty liver, probably possibly probably related to alco hol. 3. History of asthma. MEDICATIONS: Reviewed. SOCIAL HISTORY: No smoking or alcohol. Is . Very supportive family. FAMILY HISTORY: No previous history of cardiomyopathies. PHYSICAL EXAMINATION: VITAL SIGNS: Afebrile, blood pressure is 119/95, heart rate is 78, oxygen sat uration 94% on room air. GENERAL: The patient is well developed, no apparent distress. HEENT: Non icteric sclerae. Extraocular movements intact. Moist mucous membranes. NECK: Supple. No thyromeg juju. LUNGS: Good effort. Clear to auscultation bilaterally. CARDIOVASCULAR: Regular rate and rhy thm. No murmurs, rubs, or gallops. ABDOMEN: Positive bowel sounds. Soft. Some mild right CVA ten derness and lower abdominal tenderness. EXTREMITIES: No clubbing, cyanosis, or edema. SKIN: Witho ut rash. Dry, intact. NEUROLOGIC: Alert and oriented x3. EXTREMITIES: Moves all 4 extremities eq ually. PSYCH: Normal mood and affect. LABS: White count 15, hemoglobin 18 which is up from her hemoglobin 13 on discharge. MCV is better a t 104. Creatinine is 0.9. Total bilirubin 1.7, AST 114, ALT 179. ESR is 6. CRP is 7. CT scan of the abdomen and pelvis shows multiple peripherally wedged shaped defects suggesting renal infarcts, but no other findings in the pelvis which radiology feels suggestive of vasculitis rather t santiago infarcts. IUD is also possibly malpositioned. Echocardiogram shows a mobile thrombus in the left ventricle. ASSESSMENT: A 31-year-old female with right renal infarcts, most likely embolic as well as LV thromb us associated with nonischemic cardiomyopathy. PLAN: 1. Right kidney infarct. I do think this is probably more likely to be embolic than vasculitic. He r ESR is 6 and CRP is 8. She does have thrombus in her ventricle. At this point, she should be anti coagulated. Cardiology has been consulted as well. 2. Nonischemic cardiomyopathy. Ejection fraction about the same and is severely reduced. We will c ontinue her medications. Cardiology is consulted. 3. Left ventricular thrombus. We are keeping her on heparin overnight, may switch her to an oral an ticoagulant after that. 4. Possibly malpositioned IUD. Will check a vaginal ultrasound. DISPOSITION: Patient admitted under full admission status. Case discussed with ER physician. Old r ecords summarized in the HPI. Case also discussed with Cardiology. /[id number]/MODL
--- NOTE | 2016-12-28 21:03 | CPEKG ---
Heart Rate: 93 RR Interval: 645 P-R Interval: 172 QRSD Interval: 156 QT Interval: 436 QTC Interval: 543 P [place]: 21 QRS [place]: -27 T Wave [place]: 86 EKG Severity - ABNORMAL ECG - EKG Impression: SINUS RHYTHM EKG Impression: PROBABLE LEFT ATRIAL ABNORMALITY EKG Impression: LEFT BUNDLE BRANCH BLOCK EKG Impression: Lead placement different from 12/11/2016, especially V6 Electronically Signed By: Chung Mullins 28-Dec-2016 21:44:50
[2016-12-28] MEDS: LISINOPRIL 5 MG TAB PO SCH (21:58)
[2016-12-28] MEDS: SENNOSIDES/DOCUSATE SODIUM TAB PO SCH (21:58)
--- NOTE | 2016-12-28 22:02 | GCON ---
[f rep st] CONSULTATION Corrected report NEPHROLOGY CONSULTATION DATE OF CONSULTATION: 12/28/2016 REASON FOR CONSULTATION: 1. Right flank pain with evidence of right renal infarct. 2. History of nonischemic cardiomyopathy with an ejection fraction of 15%-20%. Mild left ventricular dilation. 3. History of alcohol abuse. 4. Fatty liver noted on CT scan. 5. Increased LFTs with an AST of 114 and an ALT of 79, with a total bilirubin of 1.7. 6. Proteinuria. 7. Increased hematocrit of 53.5. 8. Iron saturation of 54% with a ferritin of 430. RECOMMENDATIONS: 1. Place on heparin. 2. Quantify urine protein. 3. Evaluate for hypercoagulable workup. 4. Avoid iron supplementation. 5. Consider evaluation for hemochromatosis. 6. Echocardiogram as you have done to look for thrombus. HISTORY: Missy Ramos is a pleasant 31-year-old female, on whom I have been asked to consult by Dr. Pernell Simpson. She was admitted through the emergency room with sudden onset of right flank pain. Her symptoms began last night. The pain was severe and persisted through this morning. At that time, she sought emergency room attention. In the emergency room she was evaluated by Mami Arriaga. Ultrasound was normal. Because of this, CT scan was performed, which revealed multiple peripheral wedge-shaped defects in the right kidney consistent with renal infarcts. The patient had no other stigmata of peripheral embolic phenomenon. Due to her cardiomyopathy, limited echocardiogram was performed. PAST MEDICAL HISTORY: Alcohol abuse, asthma, nonischemic cardiomyopathy as described. SURGICAL HISTORY: None. She has had an IUD placed. MEDICATIONS ON ADMISSION: Albuterol inhaler 1-2 puffs 4 times a day if needed, Alrex eye drops 5 mL suspension 1 drop each eye twice daily if needed, Spironolactone 25 mg daily, Carvedilol 3.125 mg daily, Lisinopril 5 mg twice daily, and furosemide 20 mg daily. ALLERGIES: Codeine. SOCIAL HISTORY: She is . 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 Remainder of her family and social history is unremarkable. REVIEW OF SYSTEMS: Negative except for that included in the history of present illness. She evidently had a single seizure during her last hospitalization that was concerning for an alcohol withdrawal related seizure. PHYSICAL EXAMINATION: VITAL SIGNS: Temp 36.9, pulse 100, respirations 18, blood pressure 115/84, saturating 92% on room air. APPEARANCE: No apparent distress. She may have some mild exophthalmus. NECK: Unremarkable. HEART: Regular with no extra heart sounds. LUNGS: Clear. ABDOMEN: Slightly tender. She has right flank pain. EXTREMITIES: Free of edema. SKIN: Free of rashes. There is no evidence of peripheral embolic phenomenon. LABORATORY DATA: Report from the echocardiogram does confirm the presence of an LV thrombus. Urinalysis shows 2+ protein on a specimen that had a specific gravity of 1.027 with 5-10 white blood cells. Chemistry shows normal electrolytes and normal renal function with a creatinine 0.9. LFTs elevated with an elevated bilirubin as described. Initial INR is 1.0 with a PT of 13.3 and a PTT of 26.9. CBC shows 15.4 white blood cells, hematocrit of 53.5, platelet count of 223 and ESR of 6. ASSESSMENT: Right flank pain with evidence of renal infarcts. Given her cardiomyopathy and decreased left ventricular ejection fraction, the most likely etiology would be embolic phenomenon from a cardiac source. Ultrasound of her heart has revealed an LV thrombus. At the present time, her pain is under control. She has preserved renal function. She has no other ongoing manifestations of new embolic phenomenon. I would pursue hypercoagulable workup. We will see if Cardiology has recommendations in addition to the current anticoagulation. At the present time, her cardiomyopathy is presumed to be secondary to alcohol abuse. She is on treatment for her cardiomyopathy. We will have to see if that improves as she remains sober. At the present time. I do not see any clinical findings that would suggest that she has a glomerulonephritis or small vessel vascular disease. She does have some proteinuria on dipstick. We will go ahead and quantify her urine protein with a urine protein creatinine ratio. I do not think she needs any other workup from the renal point of view at this time. /[id number]/MODL Ella WT, 12/29/16, angie SEGURA
--- NOTE | 2016-12-28 23:59 | US ---
Ultrasound Pelvis Complete (Transabdominal and Endovaginal) History: Evaluate IUD which appeared malpositioned on CT the abdomen and pelvis performed earlier tod ay.. Technique: Transabdominal and endovaginal ultrasound images were obtained. Endovaginal images obtain ed for better evaluation of the uterine myometrium and adnexa. Color Doppler evaluation is employed f or assessment of vascularity. Findings: The uterus is normal in size and measures 6.9 x 2.9 x 3.8 cm. The endometrial measures 0.17 cm in thickness. An IUD is identified which is malpositioned and low lying. Nabothian cysts are note d in the lower uterine segment. No masses are seen. The ovaries are normal in size. The right ovary measures 1.5 x 1.7 x 1.7 the left ovary measures 3.2 x 2.4 x 3.2 cm. No adnexal masses. No free fluid is identified in the pelvis. Impression: The IUD appears to be malpositioned and low lying. This would correlate with the appearan ce on the recent CT.
[2016-12-29] MEDS: HYDROmorphONE/DILAUDID 1 MG/ML SYR IVP PRN ×3 (03:56→22:31)
[2016-12-29 05:03] LABS: % IMMATURE GRANULYOCYTES 0.4 % (0.0-1.1); ABSOLUTE IMMATURE GRANULOCYTES 0.06 10^3/uL (0.00-0.10); ADD DIFF? NO; ADD MORPH? NO; ADD SCAN? NO; ATYPICAL LYMPHOCYTE FLAG 0 (0-99); FRAGMENT RBC FLAG 0 (0-99); HEMATOCRIT 46.8 % (38.0-47.0); LEFT SHIFT FLG 0 (0-99); LIPEMIA HEMOLYSIS FLAG 90 (0-99); MEAN CELL HEMOGLOBIN 36.1 pg (27.9-34.1); MEAN CELL HEMOGLOBIN CONCENTR. 34.2 g/dL (32.4-36.7); MEAN CELL VOLUME 105.6 fL (81.5-99.8); MEAN PLATELET VOLUME 10.1 fL (8.7-11.7); PLATELET CLUMPS FLAG 10 (0-99); PLATELET COUNT 144 10^3/uL (150-400); RED BLOOD CELL COUNT 4.43 10^6/uL (4.18-5.33); RED CELL DISTRIBUTION WIDTH 11.8 % (11.5-15.2)
[2016-12-29 05:21] LABS: ANION GAP 9 mEq/L (8-16); CALCIUM 9.3 mg/dL (8.5-10.4); CARBON DIOXIDE 25 mEq/l (22-31); CHLORIDE 99 mEq/L (97-110); CREATININE 0.8 mg/dL (0.6-1.0); GLOMERULAR FILTRATION RATE > 60; GLUCOSE 98 mg/dL (70-100); POTASSIUM 4.1 mEq/L (3.5-5.2); SODIUM 133 mEq/L (134-144)
[2016-12-29] MEDS ORDERED: FUROSEMIDE 20 MG TAB PO SCH (09:00)
[2016-12-29] MEDS: POLYETHYLENE GLYCOL 3350 17 GM PKT PO SCH (09:49)
[2016-12-29] MEDS: SENNOSIDES/DOCUSATE SODIUM TAB PO SCH ×2 (09:49→19:47)
[2016-12-29] MEDS: HEPARIN/DEXTROSE 500 ML IV SCH (09:51)
[2016-12-29] MEDS: CARVEDILOL 3.125 MG TAB PO SCH ×2 (09:52→18:58)
[2016-12-29] MEDS: SPIRONOLACTONE 25 MG TAB PO SCH (09:53)
[2016-12-29] MEDS: LISINOPRIL 5 MG TAB PO SCH ×2 (09:53→22:33)
--- NOTE | 2016-12-29 09:53 | SOAPPROG ---
SOAP Progress Note Assessment/Plan: Assessment/Plan: R kidney infarcts: likely embolic phenomenon from LV thrombus. CT also mentioned the possibility of vasculitis as a cause. Pt has no other signs or symptoms of a vasculitis and has no evidence for active GN given her normal renal function. Is noted to have some proteinuria on UA, urine PCR pending. For now, pt continues to have good renal function, will continue to monitor. Hypercoagulability workup pending. HTN: pt was started on medications recently and BP is currently stable. Will continue to monitor on current meds. Subjective: No acute events overnight. Pt notes that her pain is better controlled on Dilaudid, is feeling a bit better. She is also on heparin ggt. Objective: Vital Signs Temp Pulse Resp BP Pulse Ox 38.1 C 118 H 21 H 106/72 95 12/29/16 08:25 12/29/16 08:25 12/29/16 08:25 12/29/16 08:25 12/29/16 08:25 Laboratory Results 12/29/16 04:50 12/29/16 04:50 12/28/16 12/29/16 12/30/16 05:59 05:59 05:59 Intake Total 1550 Output Total 501 Balance 1049 PT 13.3 SEC (12.0-15.0) 12/28/16 14:26 INR 1.02 (0.83-1.16) 12/28/16 14:26 General: alert and oriented, no acute distress Eyes; EOMI, PERRL OP: Clear CV: RRR Resp: CTA bilat, nonlabored respirations on RA Abd; Soft, ND Ext: no edema BLE Skin: no rash, no splinter hemorrhages, no ulcerations MSK: no synovitis, full ROM Psych: cooperative, appropriate mood and affect Neuro: CN II-XII grossly intact, no asterixis ICD10 Worksheet Patient Problems: Problems Problem Status Diagnosed Cardiomyopathy Acute Renal infarction Acute Seizure Acute Tachycardia Acute
[2016-12-29] MEDS: oxyCODONE IR 5 MG TAB PO PRN ×3 (12:56→19:56)
[2016-12-29] MEDS ORDERED: WARFARIN SODIUM 7.5 MG TAB PO ONE ×2 (16:40→19:30)
--- NOTE | 2016-12-29 17:34 | PDCARCONS ---
Cardiology Consult Reason for Consult: Cardiac source of embolus Chief Complaint: pain in the abdomen Requesting Physician: Dr. Lopez History of Present Illness: 31-year-old female well known to our service diagnosed with a cardiomyopathy placed on aggressive medical therapy. Last ejection fraction 15%. She was doing relatively well. She had stopped alcohol use. Yesterday at work she developed the acute onset of pain in her side in abdomen. This increased in frequency duration and severity. She was seen in the emergency department abdominal ultrasound suggested a renal infarction. an echocardiogram was performed this morning which confirms left ventricular thrombus. She has had no neurologic sequelae. She denies pain in the extremities. She is overall improving today. She denies PND orthopnea. She has had no palpitations or syncope. She has had no dyspnea on exertion. Medications: Medications Generic Name Dose Route Start Last Admin Trade Name Freq PRN Reason Stop Dose Admin Carvedilol 3.125 mg 12/28/16 18:00 12/29/16 09:52 Coreg PO 06/26/17 17:59 3.125 mg BIDMEAL [facility] Furosemide 20 mg 12/29/16 09:00 12/29/16 09:53 Lasix PO 06/27/17 08:59 20 mg DAILY [facility] Heparin Sodium (Porcine) 500 mls @ 0 mls/hr 12/28/16 17:30 12/29/16 09:51 Heparin 50 Units/Ml (Premix) IV 06/26/17 17:29 500 mls CONT [facility] Protocol Per Protocol Lisinopril 5 mg 12/28/16 21:00 12/29/16 09:53 Zestril PO 06/26/17 20:59 5 mg BID [facility] Spironolactone 25 mg 12/29/16 09:00 12/29/16 09:53 Aldactone PO 06/27/17 08:59 25 mg DAILY [facility] Warfarin Sodium 5 mg 12/30/16 16:00 Coumadin PO 06/28/17 15:59 DAILY AT 4PM [facility] History Information - Allergies/Home Medication List Allergies/Adverse Reactions: codeine Allergy (Mild, Verified 12/28/16 15:03) Other-Enter Comments Home Medications: Albuterol Hfa Anes Only [Proair Hfa Icu (*)] 1 - 2 puffs IH QID 12/07/16 [Last Taken 12/06/16] EPINEPHRINE [EPIPEN] 0.3 mg IM ONCE 12/07/16 [Last Taken Unknown] Loteprednol Etabonate [Alrex] 1 drop EACHEYE BID PRN 12/07/16 [Last Taken Unknown] Furosemide [Lasix 20 MG (*)] 20 mg PO DAILY 12/28/16 [Last Taken 12/27/16] I have personally reviewed and updated: family history, medical history, social history, surgical history - Surgical History Reports: no pertinent surgical hx - Family History Negative for: CAD, father with history of CAD younger than 55, male first degree with history of premature CAD Additional family history: No history of primary cardiomyopathy - Social History Smoking Status: Never smoked Alcohol Use: Other (history of heavy alcohol use now sober) Physical Exam Temp Pulse Resp BP Pulse Ox 37.1 C 68 16 101/52 L 90 L 12/29/16 16:00 12/29/16 16:00 12/29/16 16:00 12/29/16 16:00 12/29/16 16:00 O2 (L/minute) 1 Constitutional: no apparent distress, appears nourished Eyes: PERRL, anicteric sclera Ears, Nose, Mouth, Throat: moist mucous membranes Cardiovascular: regular rate and rhythym, no murmur, rub, or gallop, No JVD Peripheral Pulses: 1+: carotid (R), carotid (L), femoral (R), femoral (L) Respiratory: no respiratory distress, no rales or rhonchi, clear to auscultation Gastrointestinal: normoactive bowel sounds Skin: warm, normal color Musculoskeletal: full muscle strength Neurologic: AAOx3, sensation intact bilaterally, No weakness Psychiatric: interacting appropriately Lymph, Heme, Immunologic: no cervical LAD, no supraclavicular LAD Lab and Imaging 12/29/16 04:50 12/29/16 04:50 WBC 15.98 10^3/uL (3.80-9.50) H 12/29/16 04:50 RBC 4.43 10^6/uL (4.18-5.33) 12/29/16 04:50 Hgb 16.0 g/dL (12.6-16.3) 12/29/16 04:50 POC Hgb 20.1 gm/dL (12.3-15.9) H* 12/28/16 10:45 Hct 46.8 % (38.0-47.0) 12/29/16 04:50 POC Hct 59 % (35.5-47.5) H 12/28/16 10:45 MCV 105.6 fL (81.5-99.8) H 12/29/16 04:50 MCH 36.1 pg (27.9-34.1) H 12/29/16 04:50 MCHC 34.2 g/dL (32.4-36.7) 12/29/16 04:50 RDW 11.8 % (11.5-15.2) 12/29/16 04:50 Plt Count 144 10^3/uL (150-400) L D 12/29/16 04:50 MPV 10.1 fL (8.7-11.7) 12/29/16 04:50 Neut % (Auto) 82.4 % (39.3-74.2) H 12/29/16 04:50 Lymph % (Auto) 8.3 % (15.0-45.0) L 12/29/16 04:50 [place] % (Auto) 8.1 % (4.5-13.0) 12/29/16 04:50 Eos % (Auto) 0.5 % (0.6-7.6) L 12/29/16 04:50 Baso % (Auto) 0.3 % (0.3-1.7) 12/29/16 04:50 Nucleat RBC Rel Count 0.0 % (0.0-0.2) 12/29/16 04:50 Absolute Neuts (auto) 13.18 10^3/uL (1.70-6.50) H 12/29/16 04:50 Absolute Lymphs (auto) 1.32 10^3/uL (1.00-3.00) 12/29/16 04:50 Absolute Monos (auto) 1.29 10^3/uL (0.30-0.80) H 12/29/16 04:50 Absolute Eos (auto) 0.08 10^3/uL (0.03-0.40) 12/29/16 04:50 Absolute Basos (auto) 0.05 10^3/uL (0.02-0.10) 12/29/16 04:50 Absolute Nucleated RBC 0.00 10^3/uL (0-0.01) 12/29/16 04:50 Immature Gran % 0.4 % (0.0-1.1) 12/29/16 04:50 Immature Gran # 0.06 10^3/uL (0.00-0.10) 12/29/16 04:50 ESR 6 MM/HR (0-20) 12/28/16 10:45 PT 13.3 SEC (12.0-15.0) 12/28/16 14:26 INR 1.02 (0.83-1.16) 12/28/16 14:26 APTT 26.9 SEC (23.0-38.0) 12/28/16 14:26 Heparin Anti-Xa, Unfract 0.36 IU/mL (0.32-0.67) 12/29/16 04:50 POC Sodium 138 mEq/L (134-144) 12/28/16 10:45 Sodium 133 mEq/L (134-144) L 12/29/16 04:50 POC Potassium 4.2 mEq/L (3.3-5.0) 12/28/16 10:45 Potassium 4.1 mEq/L (3.5-5.2) 12/29/16 04:50 POC Chloride 99 mEq/L (96-108) 12/28/16 10:45 Chloride 99 mEq/L (97-110) 12/29/16 04:50 Carbon Dioxide 25 mEq/l (22-31) 12/29/16 04:50 Anion Gap 9 mEq/L (8-16) 12/29/16 04:50 POC BUN 10 mg/dL (7-23) 12/28/16 10:45 BUN 7 mg/dL (7-23) 12/29/16 04:50 Creatinine 0.8 mg/dL (0.6-1.0) 12/29/16 04:50 POC Creatinine 0.9 mg/dL (0.6-1.2) 12/28/16 10:45 Estimated GFR > 60 12/29/16 04:50 Glucose 98 mg/dL (70-100) 12/29/16 04:50 POC Glucose 114 mg/dL (70-100) H 12/28/16 10:45 Calcium 9.3 mg/dL (8.5-10.4) 12/29/16 04:50 Total Bilirubin 1.7 mg/dL (0.1-1.4) H 12/28/16 10:45 Conjugated Bilirubin 0.6 mg/dL (0.0-0.5) H 12/28/16 10:45 Unconjugated Bilirubin 1.1 mg/dL (0.0-1.1) 12/28/16 10:45 AST 114 IU/L (14-46) H 12/28/16 10:45 ALT 79 IU/L (9-52) H 12/28/16 10:45 Alkaline Phosphatase 98 IU/L (38-126) 12/28/16 10:45 C-Reactive Protein 7.8 mg/L (<10.0) 12/28/16 10:45 Total Protein 8.8 g/dL (6.3-8.2) H 12/28/16 10:45 Albumin 4.9 g/dL (3.5-5.0) 12/28/16 10:45 Lipase 76.0 IU/L (23-300) 12/28/16 10:45 Urine Color TIFFANIE 12/28/16 10:30 Urine Appearance HAZY 12/28/16 10:30 Urine pH 5.0 (5.0-7.5) 12/28/16 10:30 Ur Specific [place] 1.027 (1.002-1.030) 12/28/16 10:30 Urine Protein 2+ (NEGATIVE) H 12/28/16 10:30 Urine Ketones TRACE (NEGATIVE) H 12/28/16 10:30 Urine Blood NEGATIVE (NEGATIVE) 12/28/16 10:30 Urine Nitrate NEGATIVE (NEGATIVE) 12/28/16 10:30 Urine Bilirubin NEGATIVE (NEGATIVE) 12/28/16 10:30 Urine Urobilinogen NEGATIVE EU (0.2-1.0) 12/28/16 10:30 Ur Leukocyte Esterase NEGATIVE (NEGATIVE) 12/28/16 10:30 Urine RBC NONE SEEN /hpf (0-3) 12/28/16 10:30 Urine WBC 5-10 /hpf (0-3) H 12/28/16 10:30 Ur Epithelial Cells TRACE /lpf (NONE-1+) 12/28/16 10:30 Urine Bacteria NONE SEEN /hpf (NONE SEEN) 12/28/16 10:30 Urine Mucus 4+ /lpf (NONE-1+) H 12/28/16 10:30 Ur Culture Indicated? NOT INDICATED (NI) 12/28/16 10:30 Ur Random Creatinine 103.2 mg/dL 12/28/16 23:50 Urine Glucose NEGATIVE (NEGATIVE) 12/28/16 10:30 EKG additional interpertation: Sinus rhythm left bundle branch block Echocardiogram: reduced LV systolic function EF 20%. Left ventricular thrombus identified. A/P Assessment: impression: Nonischemic dilated cardiomyopathy severe [place] heart classification 2 now complicated by left ventricular thrombus with embolic phenomena causing renal infarction. She is well compensated and euvolemic. Plan: Recommendations: 3 days of IV anticoagulation with heparin. Initiate Coumadin goal INR 2-3.Duration of therapy indeterminate. Continue current medications for nonischemic dilated cardiomyopathy. Continue telemetry monitoring for arrhythmia. Follow-up heart failure service. Considerations for device therapy in the setting of left bundle branch block, reduced LV systolic function. Past Medical History - Personal History LMP (Females 10-55): 8-14 Days Ago Current Tetanus/Diphtheria Vaccine: Unsure Current Tetanus Diphtheria and Acellular Pertussis (TDAP): Unsure - Medical/Surgical History Hx Asthma: Yes Hx Chronic Respiratory Disease: No Hx Cardiac Disease: No Hx Diabetes: No Hx Renal Disease: No Hx Alcoholism: No Hx Cirrhosis: No Hx HIV/AIDS: No Hx Splenectomy or Spleen Trauma: No Other PMH: asthma - Social History Smoking Status: Never smoked Alcohol Use: Heavy Review of Systems - Review of Systems Constitutional: denies: chills, fever, malaise, weakness EENTM: no symptoms reported Respiratory: no symptoms reported Cardiac: no symptoms reported Gastrointestinal/Abdominal: abdominal pain. denies: diarrhea, vomiting, black stools Genitourinary: flank pain Musculoskelatal: no symptoms Skin: no symptoms Neurological: no symptoms Hematologic/Lymphatic: no symptoms reported Immunologic/allergic: no symptoms reported All Other Systems: Reviewed and Negative
--- NOTE | 2016-12-29 21:15 | HOSPPROG ---
Hospitalist Progress Note Assessment/Plan: Assessment: 31 yo F p/w acute abdominal pain 2/2 renal infarction from LV thrombus Plan: # Renal infarction. Acute, 2/2 cardioembolic source, resulting in R flank pain - cont pain Rx as needed - cont bowel regimen - appreciate nephrology consultation # LV thrombus. Acute, occurred in setting of NICM - places patient at high risk for other organ embolization (including brain) - place on neuro checks - d/w Dr. Brown, agreed we will cont on hep gtt and bridge to coumadin, start today - daily INR - will consider adjusting to lovenox once demonstrates that no renal hemorrhaging is occurring and no embolization to brain - remains high risk for morbidity/mortality # NICM. 2/2 alcohol abuse, currently sober # Chronic systolic CHF. No e/o acute exacerbation, cont on ACEi/aldactone/ bblocker/lasix # Atelectasis. Evidenced by hypoxia and likely R side splinting from pain - start IS # Suspected hepatosteatosis. Elevated liver panel, cont to monitor - present on abd CT # SIRS. 2/2 renal infarct, fever/tachycardia/leukocytosis, no infxn Diet. Cardiac PPx. High risk, on hep gtt Code. Full Dispo. ADD uncertain, requiring ongoing use of hep gtt Subjective: improving pain control w/ oxy IR Objective: Vital Signs Temp Pulse Resp BP Pulse Ox 36.9 C 81 16 98/58 L 95 12/29/16 19:46 12/29/16 19:46 12/29/16 19:46 12/29/16 19:46 12/29/16 19:46 Laboratory Results 12/29/16 04:50 12/29/16 04:50 12/28/16 12/29/16 12/30/16 05:59 05:59 05:59 Intake Total 550 3066 Output Total 500 400 Balance 50 2666 PT 13.3 SEC (12.0-15.0) 12/28/16 14:26 INR 1.02 (0.83-1.16) 12/28/16 14:26 - Physical Exam Constitutional: no apparent distress, appears nourished, not in pain, No uncomfortable Cardiovascular: tachycardia, No systolic murmur, No irregularly irregular, No JVD, No edema Respiratory: reduced air movement (R base), inspiratory crackles (R base), No expiratory wheeze, No bronchial breath sounds, No respiratory distress Gastrointestinal: normoactive bowel sounds, no palpable masses, tenderness ( mild R CVA tenderness) Skin: no rashes or abrasions, no fluctuance, no induration Neurologic: AAOx3, sensation intact bilaterally Psychiatric: interacting appropriately, not anxious, not encephalopathic, thought process linear ICD10 Worksheet Patient Problems: Problems Problem Status Diagnosed Cardiomyopathy Acute Left ventricular thrombus Acute Renal infarction Acute Seizure Acute Tachycardia Acute
[2016-12-30] MEDS: HEPARIN/DEXTROSE 500 ML IV SCH ×2 (04:35→21:41)
[2016-12-30] MEDS: oxyCODONE IR 5 MG TAB PO PRN ×5 (04:37→21:40)
[2016-12-30 05:26] LABS: % IMMATURE GRANULYOCYTES 0.5 % (0.0-1.1); ABSOLUTE IMMATURE GRANULOCYTES 0.07 10^3/uL (0.00-0.10); ADD DIFF? NO; ADD MORPH? NO; ADD SCAN? NO; ATYPICAL LYMPHOCYTE FLAG 0 (0-99); FRAGMENT RBC FLAG 0 (0-99); HEMATOCRIT 45.5 % (38.0-47.0); HEMOGLOBIN 15.6 g/dL (12.6-16.3); LEFT SHIFT FLG 0 (0-99); LIPEMIA HEMOLYSIS FLAG 90 (0-99); MEAN CELL HEMOGLOBIN 37.1 pg (27.9-34.1); MEAN CELL HEMOGLOBIN CONCENTR. 34.3 g/dL (32.4-36.7); MEAN CELL VOLUME 108.1 fL (81.5-99.8); MEAN PLATELET VOLUME 10.5 fL (8.7-11.7); PLATELET CLUMPS FLAG 20 (0-99); PLATELET COUNT 125 10^3/uL (150-400); RED BLOOD CELL COUNT 4.21 10^6/uL (4.18-5.33); RED CELL DISTRIBUTION WIDTH 11.9 % (11.5-15.2)
[2016-12-30 05:36] LABS: ANION GAP 8 mEq/L (8-16); CALCIUM 9.1 mg/dL (8.5-10.4); CARBON DIOXIDE 28 mEq/l (22-31); CHLORIDE 96 mEq/L (97-110); CREATININE 0.8 mg/dL (0.6-1.0); GLOMERULAR FILTRATION RATE > 60; GLUCOSE 92 mg/dL (70-100); POTASSIUM 3.8 mEq/L (3.5-5.2); SODIUM 132 mEq/L (134-144)
[2016-12-30 05:48] LABS: INR 1.15 (0.83-1.16); PROTIME(PATIENT) 14.6 SEC (12.0-15.0)
[2016-12-30] MEDS: HEPARIN 10,000 UNIT/10 ML MDV IVP PRN (08:44)
[2016-12-30] MEDS: SENNOSIDES/DOCUSATE SODIUM TAB PO SCH ×2 (08:57→21:38)
[2016-12-30] MEDS: POLYETHYLENE GLYCOL 3350 17 GM PKT PO SCH (08:57)
[2016-12-30] MEDS: FUROSEMIDE 20 MG TAB PO SCH ×3 (10:43→16:23)
[2016-12-30] MEDS: CARVEDILOL 3.125 MG TAB PO SCH (10:43)
[2016-12-30] MEDS: SPIRONOLACTONE 25 MG TAB PO SCH (12:10)
[2016-12-30] MEDS: LISINOPRIL 5 MG TAB PO SCH ×2 (12:10→22:01)
--- NOTE | 2016-12-30 12:27 | PDCARPN ---
Cardiology Progress Note Assessment/Plan: Assessment/ plan: 31-year-old female with nonischemic cardiomyopathy thought most likely to be related to hypertension and heavy alcohol use. She was 1st diagnosed with this problem in November. She is now readmitted with right flank pain and found to have renal infarcts. Echocardiogram now shows LV thrombus, it is felt that her renal infarcts are most likely embolic phenomenon. However , other evaluation for vasculitis pending, per the renal service. 1. cardiomyopathy: She appears euvolemic. Continue lisinopril. Up titrate Coreg. Continue Lasix and spironolactone. Consideration for life vest upon discharge. 2. LV thrombus with evidence of embolic phenomenon as detailed above. She is on heparin drip and has been started on warfarin. Goal INR 2-3. She has never had previous clotting disorder. 3. Ventricular tachycardia: Uptitrate Coreg. Check magnesium. Consider life vest. This was discussed the patient and her today. She has not had syncope. 4. elevated LFTs And fatty liver on ultrasound: This may be related to her alcohol use. She needs to quit completely. 5. history of hypertension: Currently well controlled. 6. Malpositioned IUD seen on pelvic ultrasound. Will discuss with gynecology. The patient and her understands that at this point it would be detrimental for her to become that she has cardiomyopathy, LV thrombus , and is on warfarin and lisinopril both of which are to echogenic. Greater than 30 minutes was spent in reviewing chart, Interviewing and examining patient, coordination of care. 12/30/16 12:27 Subjective: Missy has no shortness of breath. She did not notice any palpitations. She has intermittently felt lightheaded at home and yesterday evening but has not had montrell syncope. She continues to have right upper quadrant and right flank pain that is worse with a deep breath. Reviewed/Discussed With: hospitalist (Dr. Lopez) Objective: Vital Signs (8 Hrs) Temp Pulse Resp BP Pulse Ox 12/30/16 12:10 107/71 12/30/16 10:42 94 111/75 12/30/16 10:26 37.2 C 80 16 109/73 89 L 12/30/16 07:45 36.8 C 74 15 101/67 95 Intake/Output (24 Hrs) 12/29/16 12/30/16 12/31/16 05:59 05:59 05:59 Intake Total 550 3556 Output Total 500 600 Balance 50 2956 Intake: Oral (ml) 500 3266 IV Infused (ml) 50 290 Heparin/Dextrose 500 ml @ 50 290 Per Protocol IV CONT BIMAL Rx#:[id number] Output: Urine (ml) 500 600 Toilet 500 600 Other: Weight 76.8 kg 76.4 kg Intake Quantity Yes Sufficient Number of Voids Toilet 2 2 2 No acute distress. JVP less than 10. Regular rate and rhythm without murmur or gallop Lungs clear to auscultation without wheezes rhonchi or rales Extremities are warm and well perfused without cyanosis clubbing or edema Alert and oriented x3 with no gross focal neurologic deficits. Appropriate mood and affect Result Diagrams: 12/30/16 05:05 12/30/16 05:05 Telemetry: Normal sinus rhythm. 90 run of ventricular tachycardia at 10:30 a.m. this morning. Echocardiogram: Reviewed. Dilated left ventricle. Ejection fraction 20%. Left ventricular thrombus. ICD10 Worksheet Patient Problems: Problems Problem Status Diagnosed Cardiomyopathy Acute Left ventricular thrombus Acute Renal infarction Acute Seizure Acute Tachycardia Acute
[2016-12-30 12:58] LABS: MAGNESIUM 1.5 mg/dL (1.6-2.3)
[2016-12-30] MEDS ORDERED: CETIRIZINE 10 MG TAB PO PRN (14:19)
--- NOTE | 2016-12-30 16:20 | HOSPPROG ---
Hospitalist Progress Note Assessment/Plan: Assessment: 31 yo F p/w acute abdominal pain 2/2 renal infarction from LV thrombus Plan: # Renal infarction. Acute, 2/2 cardioembolic source, resulting in R flank pain - cont pain Rx as needed - cont bowel regimen - appreciate nephrology consultation # LV thrombus. Acute, occurred in setting of NICM - places patient at high risk for other organ embolization (including brain) - placed on neuro checks - d/w Dr. Muhammad, agreed we will cont on hep gtt and bridge to coumadin, will get Echo on 01/01 to reassess clot size and mobility - daily INR w/ goal 2-3 - will consider adjusting to lovenox once demonstrates that no renal hemorrhaging is occurring and no embolization to brain - remains high risk for morbidity/mortality # NSVT. Non-sustained 10 beat run VTach on tele, asymptomatic, likely 2/2 low EF - patient will require life-vest, given that it is unclear how quickly her EF may recover now that she is on right medications - to be arranged via [facility] # NICM. 2/2 alcohol abuse, currently sober # Chronic systolic CHF. No e/o acute exacerbation, cont on ACEi/aldactone/ bblocker/lasix - increased coreg given her NSVT - increased lasix dosing to bid given volume load from hep gtt # Atelectasis. Evidenced by hypoxia and likely R side splinting from pain - encourage deep inspiration # Suspected hepatosteatosis. Elevated liver panel, cont to monitor - present on abd CT # SIRS. 2/2 renal infarct, fever/tachycardia/leukocytosis, no infxn # IUD dislodged. Appears to be low on imaging, Dr. Muhammad to d/w [employer] to determine whether this needs to be replaced and if this renders it ineffective Diet. Cardiac PPx. High risk, on hep gtt Code. Full Dispo. ADD uncertain, requiring ongoing use of hep gtt Subjective: Patient reports that her right-sided abdominal pain is better controlled Objective: Vital Signs Temp Pulse Resp BP Pulse Ox 36.9 C 83 18 89/57 L 84 L 12/30/16 16:00 12/30/16 16:00 12/30/16 16:00 12/30/16 16:00 12/30/16 16:00 Laboratory Results 12/30/16 05:05 12/30/16 05:05 12/29/16 12/30/16 12/31/16 05:59 05:59 05:59 Intake Total 550 3556 Output Total 500 600 200 Balance 50 2956 -200 PT 14.6 SEC (12.0-15.0) 12/30/16 05:05 INR 1.15 (0.83-1.16) 12/30/16 05:05 - Physical Exam Constitutional: no apparent distress, appears nourished, not in pain, No uncomfortable Cardiovascular: regular rate and rhythym, no murmur, rub, or gallop, No tachycardia, No edema Respiratory: no respiratory distress, no rales or rhonchi, clear to auscultation Gastrointestinal: normoactive bowel sounds, soft, non-tender abdomen, no palpable masses Neurologic: AAOx3, No weakness, No facial droop Psychiatric: interacting appropriately, not anxious, not encephalopathic, thought process linear ICD10 Worksheet Patient Problems: Problems Problem Status Diagnosed Cardiomyopathy Acute Left ventricular thrombus Acute Renal infarction Acute Seizure Acute Tachycardia Acute
[2016-12-30] MEDS: WARFARIN SODIUM 5 MG TAB PO SCH (16:23)
--- NOTE | 2016-12-30 16:25 | SOAPPROG ---
SOAP Progress Note Assessment/Plan: Assessment: 1. renal infarct: embolic from LV thrombus, now on anticoag. Pain gradually improving. This should have no long-term impact on her renal fxn. I think it would be reasonable for her to f/u in our [place] office once, mainly to re- eval proteinuria (which I suspect was transient), but I do not anticipate her needing long-term renal f/u. She has our card and will call for f/u in 2 mos or so. 2. HypoNa: very mild and likely due to heparin in D5w. On po fluid restrict, anticipate resolving. Will sign off. Plan: 12/30/16 16:22 Subjective: In good spirits, still with some R flank pain but much improved. Objective: Vital Signs Temp Pulse Resp BP Pulse Ox 36.9 C 83 18 89/57 L 84 L 12/30/16 16:00 12/30/16 16:00 12/30/16 16:00 12/30/16 16:00 12/30/16 16:00 Laboratory Results 12/30/16 05:05 12/30/16 05:05 12/29/16 12/30/16 12/31/16 05:59 05:59 05:59 Intake Total 550 3556 Output Total 500 600 200 Balance 50 2956 -200 PT 14.6 SEC (12.0-15.0) 12/30/16 05:05 INR 1.15 (0.83-1.16) 12/30/16 05:05 Physical Exam - Physical Exam General Appearance: no apparent distress Respiratory: lungs clear Cardiac/Chest: regular rate, rhythm Extremities: pedal edema (none) ICD10 Worksheet Patient Problems: Problems Problem Status Diagnosed Cardiomyopathy Acute Left ventricular thrombus Acute Renal infarction Acute Seizure Acute Tachycardia Acute
[2016-12-30] MEDS ORDERED: POLYETHYLENE GLYCOL 3350 17 GM PKT PO PRN (16:26)
[2016-12-30] MEDS ORDERED: MAGNESIUM HYDROXIDE 30 ML UDCUP PO PRN (16:26)
[2016-12-30] MEDS ORDERED: BISACODYL 10 MG SUPP PR PRN (16:26)
[2016-12-30] MEDS ORDERED: LACTULOSE 20 GM/30 ML UDCUP PO PRN (16:26)
[2016-12-30] MEDS: CARVEDILOL 6.25 MG TAB PO SCH (18:51)
[2016-12-31 07:47] LABS: % IMMATURE GRANULYOCYTES 0.3 % (0.0-1.1); ABSOLUTE IMMATURE GRANULOCYTES 0.03 10^3/uL (0.00-0.10); ADD DIFF? NO; ADD MORPH? NO; ADD SCAN? NO; ATYPICAL LYMPHOCYTE FLAG 0 (0-99); FRAGMENT RBC FLAG 0 (0-99); HEMATOCRIT 43.4 % (38.0-47.0); HEMOGLOBIN 14.9 g/dL (12.6-16.3); LEFT SHIFT FLG 0 (0-99); LIPEMIA HEMOLYSIS FLAG 90 (0-99); MEAN CELL HEMOGLOBIN 36.7 pg (27.9-34.1); MEAN CELL HEMOGLOBIN CONCENTR. 34.3 g/dL (32.4-36.7); MEAN CELL VOLUME 106.9 fL (81.5-99.8); MEAN PLATELET VOLUME 11.2 fL (8.7-11.7); PLATELET CLUMPS FLAG 20 (0-99); PLATELET COUNT 138 10^3/uL (150-400); RED BLOOD CELL COUNT 4.06 10^6/uL (4.18-5.33); RED CELL DISTRIBUTION WIDTH 11.7 % (11.5-15.2)
[2016-12-31 07:50] LABS: INR 1.16 (0.83-1.16); PROTIME(PATIENT) 14.8 SEC (12.0-15.0)
[2016-12-31 08:15] LABS: CALCIUM 9.3 mg/dL (8.5-10.4); CARBON DIOXIDE 27 mEq/l (22-31); CREATININE 0.8 mg/dL (0.6-1.0); GLOMERULAR FILTRATION RATE > 60; GLUCOSE 93 mg/dL (70-100); POTASSIUM 4.2 mEq/L (3.5-5.2); SODIUM 130 mEq/L (134-144)
[2016-12-31 08:22] LABS: ANION GAP 11 mEq/L (8-16); CHLORIDE 92 mEq/L (97-110)
[2016-12-31] MEDS ORDERED: PROTOCOL MAGNESIUM 1 DOSE IV PRN (08:39)
--- NOTE | 2016-12-31 08:44 | PDCARPN ---
Cardiology Progress Note Assessment/Plan: Assessment/ plan: 31-year-old female with nonischemic cardiomyopathy thought most likely to be related to hypertension and heavy alcohol use. She was initially diagnosed with this problem in November. She is now readmitted with right flank pain and found to have renal infarcts. Echocardiogram now shows LV thrombus, it is felt that her renal infarcts are most likely embolic phenomenon. However, evaluation for vasculitis pending, per the renal service. 1. cardiomyopathy: She appears euvolemic. Continue lisinopril and Coreg. Continue Lasix and spironolactone. Will need Life vest upon discharge. 2. LV thrombus with evidence of embolic phenomenon as detailed above. She is on heparin drip and has been started on warfarin. Goal INR 2-3. extra 2.5 mg of warfarin today. She has never had previous clotting disorder. 3. Ventricular tachycardia: Uptitrated Coreg. Magnesium repletion. Will need LifeVest. She has not had syncope. 4. elevated LFTs And fatty liver on ultrasound: This may be related to her alcohol use. She needs to quit completely. 5. history of hypertension: Currently well controlled. 6. Malpositioned IUD seen on pelvic ultrasound. discussed with gynecology. they recommend removal and replacement with a new device as an outpatient.T he patient and her understands that at this point it would be detrimental for her to become that she has cardiomyopathy, LV thrombus, and is on warfarin and lisinopril both of which are to teratogenic 7. Low platelets: Mild. Unlikely to be HIT. 8. Hyponatremia: Mild. May be related to D5 solution. 12/31/16 08:55 Subjective: minimal lightheadedness. No palpitations. Denies chest pain or shortness of breath. Right flank pain improving. Reviewed/Discussed With: hospitalist Objective: Vital Signs (8 Hrs) Resp BP Pulse Ox 12/31/16 04:00 18 94/44 L 88 L Intake/Output (24 Hrs) 12/30/16 12/31/16 01/01/17 05:59 05:59 05:59 Intake Total 3556 2803 Output Total 600 850 Balance 2956 1953 Intake: Oral (ml) 3266 2190 IV Infused (ml) 290 613 Heparin/Dextrose 500 ml @ 290 613 Per Protocol IV CONT BIMAL Rx#:[id number] Output: Urine (ml) 600 850 Toilet 600 850 Other: Weight 76.4 kg Intake Quantity Yes Sufficient Number of Voids Toilet 2 1 Number of Stools Toilet 1 no acute distress. JVP less than 10. Regular rate and rhythm without murmurs or gallops Lungs clear auscultation without wheezes rhonchi or rales No lower extremity edema Result Diagrams: 12/31/16 07:33 12/31/16 07:33 Telemetry: Normal sinus rhythm ICD10 Worksheet Patient Problems: Problems Problem Status Diagnosed Cardiomyopathy Acute Left ventricular thrombus Acute Renal infarction Acute Seizure Acute Tachycardia Acute
[2016-12-31] MEDS ORDERED: MAGNESIUM SULF 1 GM/DEXTROSE 100 ML IV ONE (09:08)
[2016-12-31] MEDS: oxyCODONE IR 5 MG TAB PO PRN ×4 (09:24→22:24)
[2016-12-31] MEDS: POLYETHYLENE GLYCOL 3350 17 GM PKT PO SCH (09:36)
[2016-12-31] MEDS: SENNOSIDES/DOCUSATE SODIUM TAB PO SCH ×2 (09:37→21:23)
[2016-12-31] MEDS: LISINOPRIL 5 MG TAB PO SCH ×2 (09:38→21:22)
[2016-12-31] MEDS: SPIRONOLACTONE 25 MG TAB PO SCH (09:38)
[2016-12-31] MEDS: CARVEDILOL 6.25 MG TAB PO SCH ×2 (09:38→18:38)
[2016-12-31] MEDS: FUROSEMIDE 20 MG TAB PO SCH ×2 (09:44→15:06)
[2016-12-31] MEDS: HEPARIN 10,000 UNIT/10 ML MDV IVP PRN (09:58)
[2016-12-31] MEDS ORDERED: HEPARIN 25,000 UNIT in D5W 500 ML IV SCH (12:30)
[2016-12-31] MEDS: HEPARIN 25,000 UNIT in NS 500 ML IV SCH (14:01)
[2016-12-31] MEDS: WARFARIN SODIUM 5 MG TAB PO SCH (15:06)
[2016-12-31] MEDS ORDERED: MAGNESIUM CITRATE 300 ML BOTTLE PO PRN (15:53)
--- NOTE | 2016-12-31 15:54 | HOSPPROG ---
Hospitalist Progress Note Assessment/Plan: INTERVAL SUMMARY & DAILY PROGRESS NOTE DATE OF ADMISSION: 12/28/2016 INTERVAL DIAGNOSES 1. Acute left ventricular thrombus 2. Acute renal infarction 3. Nonsustained ventricular tachycardia 4. Nonischemic cardiomyopathy 5. Chronic systolic congestive heart failure 6. Atelectasis 7. Suspected hepatic steatosis 8. Systemic inflammatory response syndrome 9. IUD malposition 10. Acute Hyponatremia CONSULTATIONS Cardiology Nephrology PROCEDURES / IMAGING Echocardiogram demonstrating left ventricular thrombus CT of the abdomen demonstrating renal infarctions on the right CHIEF COMPLAINT Right flank pain SUBJECTIVE Patient reports she has yet to have a normal bowel movement, mild right flank pain controlled with oxycodone HOSPITAL COURSE BY PROBLEM The patient presented with right flank pain secondary to renal infarction in the setting of left ventricular thrombus in the setting nonischemic cardiomyopathy and ejection fraction around 10%. The patient was initiated on systemic anticoagulation and she has been monitored closely for any further signs of distal embolization. She is currently on heparin drip and her left ventricular thrombus size and location will be reassessed on echocardiogram on . If the thrombus is without any worsening prognostic features, the patient should be safe to discharge home on Lovenox bridging therapy to Coumadin as long as she is able to have close, regular anticoagulation Clinic follow-up as well as close cardiology outpatient monitoring. She will also require a life vest given her NSVT. Assessment: 31 yo F p/w acute abdominal pain 2/2 renal infarction from LV thrombus Plan: # Renal infarction. Acute, 2/2 cardioembolic source, resulting in R flank pain - cont pain Rx as needed, oxy IR - cont bowel regimen - appreciate nephrology consultation # LV thrombus. Acute, occurred in setting of NICM - places patient at high risk for other organ embolization (including brain) - cont on neuro checks - d/w Dr. Muhammad, agreed we will cont on hep gtt and bridge to coumadin, will get Echo on 01/01 to reassess clot size and mobility - daily INR w/ goal 2-3, given additional 2.5mg coumadin today (in addition to the scheduled 5mg dose) - will consider adjusting to lovenox once demonstrates that no renal hemorrhaging is occurring and no embolization to brain, likely on 01/01 - remains high risk for morbidity/mortality # NSVT. Non-sustained 10 beat run VTach on tele, asymptomatic, likely 2/2 low EF - patient will require life-vest, given that it is unclear how quickly her EF may recover now that she is on right medications - to be arranged via [facility] # NICM. 2/2 alcohol abuse, currently sober # Chronic systolic CHF. No e/o acute exacerbation, cont on ACEi/aldactone/ bblocker/lasix - increased coreg given her NSVT - increased lasix dosing to bid given volume load from hep gtt # Atelectasis. Evidenced by hypoxia and likely R side splinting from pain - encourage deep inspiration - may require home o2 at discharge # Hyponatremia. Acute, likely 2/2 high free water intake (in hep gtt and PO consumption) - adjusted hep gtt to NS solution - limit PO intake to 1.5L/day - repeat sNa in AM # Suspected hepatosteatosis. Elevated liver panel, cont to monitor - present on abd CT # SIRS. 2/2 renal infarct, fever/tachycardia/leukocytosis, no infxn # IUD malpositioned. Appears to be low on imaging, Dr. Muhammad d/w CHIEF TECHNOLOGY OFFICER and they recommended patient schedule outpt appt for repositioning, avoid unprotected intercourse in the interim to avoid Diet. Cardiac PPx. High risk, on hep gtt Code. Full Dispo. ADD uncertain, requiring ongoing use of hep gtt, potentially 2/13 PM Subjective: Patient has not had a regular bowel movement yet, no bleeding Objective: Vital Signs Temp Pulse Resp BP Pulse Ox 36.8 C 77 14 102/75 92 12/31/16 11:18 12/31/16 11:18 12/31/16 11:18 12/31/16 11:18 12/31/16 11:18 Laboratory Results 12/31/16 07:33 12/31/16 07:33 12/30/16 12/31/16 01/01/17 05:59 05:59 05:59 Intake Total 3556 2803 Output Total 600 850 700 Balance 2956 1953 -700 PT 14.8 SEC (12.0-15.0) 12/31/16 07:33 INR 1.16 (0.83-1.16) 12/31/16 07:33 - Physical Exam Constitutional: no apparent distress, appears nourished, not in pain Cardiovascular: regular rate and rhythym, systolic murmur (106 systolic murmur at the sternum), edema (Trace bilateral lower extremity edema), No irregularly irregular, No tachycardia Respiratory: no respiratory distress, inspiratory crackles (Bilateral bases), No expiratory wheeze, No bronchial breath sounds Gastrointestinal: normoactive bowel sounds, soft, non-tender abdomen, no palpable masses Neurologic: AAOx3, No weakness, No facial droop Psychiatric: interacting appropriately, not anxious, not encephalopathic, thought process linear ICD10 Worksheet Patient Problems: Problems Problem Status Diagnosed Cardiomyopathy Acute Left ventricular thrombus Acute Renal infarction Acute Seizure Acute Tachycardia Acute
[2016-12-31] MEDS ORDERED: WARFARIN SODIUM 2.5 MG TAB PO ONE (16:00)
[2017-01-01] MEDS: oxyCODONE IR 5 MG TAB PO PRN ×6 (04:39→22:00)
[2017-01-01 05:27] LABS: ANION GAP 8 mEq/L (8-16); CALCIUM 9.3 mg/dL (8.5-10.4); CARBON DIOXIDE 28 mEq/l (22-31); CHLORIDE 96 mEq/L (97-110); CREATININE 0.7 mg/dL (0.6-1.0); GLOMERULAR FILTRATION RATE > 60; GLUCOSE 90 mg/dL (70-100); MAGNESIUM 1.8 mg/dL (1.6-2.3); SODIUM 132 mEq/L (134-144)
[2017-01-01 05:28] LABS: % IMMATURE GRANULYOCYTES 0.1 % (0.0-1.1); ABSOLUTE IMMATURE GRANULOCYTES 0.01 10^3/uL (0.00-0.10); ADD DIFF? NO; ADD MORPH? NO; ADD SCAN? NO; ATYPICAL LYMPHOCYTE FLAG 10 (0-99); FRAGMENT RBC FLAG 0 (0-99); HEMATOCRIT 42.8 % (38.0-47.0); HEMOGLOBIN 14.8 g/dL (12.6-16.3); LEFT SHIFT FLG 0 (0-99); LIPEMIA HEMOLYSIS FLAG 90 (0-99); MEAN CELL HEMOGLOBIN 36.5 pg (27.9-34.1); MEAN CELL HEMOGLOBIN CONCENTR. 34.6 g/dL (32.4-36.7); MEAN CELL VOLUME 105.4 fL (81.5-99.8); MEAN PLATELET VOLUME 11.3 fL (8.7-11.7); PLATELET CLUMPS FLAG 20 (0-99); PLATELET COUNT 164 10^3/uL (150-400); RED BLOOD CELL COUNT 4.06 10^6/uL (4.18-5.33); RED CELL DISTRIBUTION WIDTH 11.7 % (11.5-15.2)
[2017-01-01 05:59] LABS: INR 1.22 (0.83-1.16); PROTIME(PATIENT) 15.4 SEC (12.0-15.0)
[2017-01-01] MEDS: HEPARIN 10,000 UNIT/10 ML MDV IVP PRN (06:35)
[2017-01-01] MEDS: HEPARIN 25,000 UNIT in NS 500 ML IV SCH ×2 (06:35→21:59)
[2017-01-01] MEDS ORDERED: MAGNESIUM SULF 1 GM/DEXTROSE 100 ML IV ONE (08:13)
[2017-01-01] MEDS: POLYETHYLENE GLYCOL 3350 17 GM PKT PO SCH (08:24)
[2017-01-01] MEDS: LISINOPRIL 5 MG TAB PO SCH ×2 (08:25→22:01)
[2017-01-01] MEDS: FUROSEMIDE 20 MG TAB PO SCH ×2 (08:25→14:59)
[2017-01-01] MEDS: SPIRONOLACTONE 25 MG TAB PO SCH (08:26)
[2017-01-01] MEDS: CARVEDILOL 6.25 MG TAB PO SCH ×2 (08:26→18:03)
[2017-01-01] MEDS: SENNOSIDES/DOCUSATE SODIUM TAB PO SCH ×2 (08:29→21:59)
[2017-01-01 09:24] LABS: PROTEIN S ACTIVITY 101 % (50 - 160)
--- NOTE | 2017-01-01 10:19 | ECHO ---
[id number] + + [address] : : [place] [address] : : [phone] + + Adult Echocardiographic Report + ------+ :Name: JANNA PADILLA LStudy Date: 01/01/2017 07:45 AM : : Hospital Admission Number: [id number] Locatio n: 220: :: 1985 Gender: Female Height: 69 in : :Age: 31 yrs Race: WH Weight: 168 lb : :Reason For Study: Follow up LV thrombus : : BSA: 1.9 meters 2 : + ------+ Doppler Measurements & Calculations TR max angie: 325.8 cm/sec TR max P.5 mmHg RAP systole: 10.0 mmHg RVSP(TR): 52.5 mmHg Left Ventricle No LV thrombus visualized. LV remains severely reduced. Tricuspid Valve There is moderate tricuspid regurgitation. Right ventricular systolic pressure is 48-53mmHg. There is Doppler evidence for mild pulmonary hypertension. Conclusion Limited 2-D echo. No LV thrombus visualized. LV remains severely reduced. There is moderate tricuspid regurgitation. Right ventricular systolic pressure is 48-53mmHg. There is Doppler evidence for mild pulmonary hypertension. Final Reading Physician: Fariha Mcbride signed on 01/01/2017 10:18 AM Ordering Physician: Daksha Muhammad Performed By: Marah Paulino RDCS
[2017-01-01 11:45] LABS: PROTEIN S FREE ANTIGEN 159 % (50 - 160)
[2017-01-01 12:44] LABS: PROTEIN C ACTIVITY 82 % (70 - 150)
[2017-01-01] MEDS: WARFARIN SODIUM 5 MG TAB PO SCH (14:59)
--- NOTE | 2017-01-01 15:00 | HOSPPROG ---
Hospitalist Progress Note Assessment/Plan: DIAGNOSIS: 1. Acute left ventricular thrombus 2. Acute renal infarction 3. Nonsustained ventricular tachycardia 4. Nonischemic cardiomyopathy 5. Chronic systolic congestive heart failure 6. Atelectasis 7. Suspected hepatic steatosis 8. Systemic inflammatory response syndrome 9. IUD malposition 10. Acute Hyponatremia Her INR is slowly rising on Coumadin. At this point on repeat echo no thrombus was seen so hopefully she is thrombolysis thing that. At this point discharge will be planned when Cardiology feels she is stable. Follow-up will be in the outpatient clinic at [facility] for management of anticoagulation, heart failure, and arrhythmia with current plans for using a life vest. PLANS: -Continue current management for now -Plan on discharge once life vest available and in place I reviewed in detail today with Dr. Yifan Alston SUBJECTIVE: feels fine now with minimal residual discomfort at her kidneys, no chest pain shortness of breath or palpitations, eating well and ambulating OBJECTIVE Vitals reviewed: stable with no fever secured entrance monitor: On my review there is sinus rhythm with a couple of PVCs but no V-tach Exam: alert oriented skin warm dry color ok resps not labored lungs clear BSs heart regular abd soft nondistended nontender, bowel sounds present limbs warm, no edema iv site ok Objective: Vital Signs Temp Pulse Resp BP Pulse Ox 36.9 C 80 16 101/66 96 01/01/17 11:47 01/01/17 11:47 01/01/17 11:47 01/01/17 11:47 01/01/17 11:47 Laboratory Results 01/01/17 04:50 01/01/17 04:50 12/31/16 01/01/17 01/02/17 06:59 06:59 06:59 Intake Total 2803 1122 Output Total 850 700 Balance 1953 422 PT 15.4 SEC (12.0-15.0) H 01/01/17 04:50 INR 1.22 (0.83-1.16) H 01/01/17 04:50 ICD10 Worksheet Patient Problems: Problems Problem Status Diagnosed Cardiomyopathy Acute Left ventricular thrombus Acute Renal infarction Acute Seizure Acute Tachycardia Acute
--- NOTE | 2017-01-01 17:14 | SOAPPROG ---
SOAP Progress Note Assessment/Plan: Assessment: Patient Name: JANNA PADILLA Date of : [birth year] Patient Status: Inpatient Attending Provider: Pernell Simpson Date: 12/31/16 08:37 Initialization Date: 12/31/16 08:37 Cardiology Progress Note Assessment/Plan: Assessment/ plan: 31-year-old female with nonischemic cardiomyopathy thought most likely to be related to hypertension and heavy alcohol use. She was initially diagnosed with this problem in November. She is now readmitted with right flank pain and found to have renal infarcts. Echocardiogram now shows LV thrombus, it is felt that her renal infarcts are most likely embolic phenomenon. However, evaluation for vasculitis pending, per the renal service. 1. cardiomyopathy: She appears euvolemic. Continue lisinopril and Coreg. Continue Lasix and spironolactone. life vest info to be sent tonight 2. LV thrombus with evidence of embolic phenomenon as detailed above. She is on heparin drip and coumadin..inr 1.2...echo today without lv thrombus 3. Ventricular tachycardia: Uptitrated Coreg. Magnesium repletion. Will need LifeVest. She has not had syncope. 4. elevated LFTs And fatty liver on ultrasound: This may be related to her alcohol use. She needs to quit completely. 5. history of hypertension: Currently well controlled. 6. Malpositioned IUD seen on pelvic ultrasound. discussed with gynecology. they recommend removal and replacement with a new device as an outpatient.T he patient and her understands that at this point it would be detrimental for her to become that she has cardiomyopathy, LV thrombus, and is on warfarin and lisinopril both of which are to teratogenic 7. Low platelets: Mild. Unlikely to be HIT. 8. Hyponatremia: Mild. May be related to D5 solution. Plan:1. heparin/coumadin until inr 2.5...await life vest to be place on before d /c 01/01/17 17:12 Subjective: pt is feeling well..discussed echo findings and lfe vest info was signed by dr sandoval Objective: Vital Signs Temp Pulse Resp BP Pulse Ox 36.8 C 76 16 102/60 90 L 01/01/17 16:00 01/01/17 16:00 01/01/17 16:00 01/01/17 16:00 01/01/17 16:00 Laboratory Results 01/01/17 04:50 01/01/17 04:50 12/31/16 01/01/17 01/02/17 05:59 05:59 05:59 Intake Total 2803 1122 1900 Output Total 850 700 Balance 2316 216 9207 PT 15.4 SEC (12.0-15.0) H 01/01/17 04:50 INR 1.22 (0.83-1.16) H 01/01/17 04:50 Physical Exam - Physical Exam Respiratory: lungs clear Cardiac/Chest: normal peripheral pulses, No edema ICD10 Worksheet Patient Problems: Problems Problem Status Diagnosed Cardiomyopathy Acute Left ventricular thrombus Acute Renal infarction Acute Seizure Acute Tachycardia Acute
[2017-01-02 06:25] LABS: ANION GAP 11 mEq/L (8-16); CALCIUM 9.2 mg/dL (8.5-10.4); CARBON DIOXIDE 29 mEq/l (22-31); CHLORIDE 99 mEq/L (97-110); CREATININE 0.7 mg/dL (0.6-1.0); GLOMERULAR FILTRATION RATE > 60; GLUCOSE 90 mg/dL (70-100); SODIUM 139 mEq/L (134-144)
[2017-01-02 06:43] LABS: INR 1.37 (0.83-1.16); PROTIME(PATIENT) 16.9 SEC (12.0-15.0)
[2017-01-02 06:56] LABS: % IMMATURE GRANULYOCYTES 0.5 % (0.0-1.1); ABSOLUTE IMMATURE GRANULOCYTES 0.03 10^3/uL (0.00-0.10); ADD DIFF? NO; ADD MORPH? NO; ADD SCAN? NO; ATYPICAL LYMPHOCYTE FLAG 20 (0-99); FRAGMENT RBC FLAG 10 (0-99); HEMATOCRIT 41.1 % (38.0-47.0); HEMOGLOBIN 14.1 g/dL (12.6-16.3); LEFT SHIFT FLG 0 (0-99); LIPEMIA HEMOLYSIS FLAG 90 (0-99); MEAN CELL HEMOGLOBIN 36.7 pg (27.9-34.1); MEAN CELL HEMOGLOBIN CONCENTR. 34.3 g/dL (32.4-36.7); MEAN PLATELET VOLUME 11.9 fL (8.7-11.7); PLATELET CLUMPS FLAG 20 (0-99); PLATELET COUNT 207 10^3/uL (150-400); RED BLOOD CELL COUNT 3.84 10^6/uL (4.18-5.33); RED CELL DISTRIBUTION WIDTH 11.8 % (11.5-15.2)
[2017-01-02 07:57] LABS: MAGNESIUM 1.8 mg/dL (1.6-2.3)
[2017-01-02] MEDS: LISINOPRIL 5 MG TAB PO SCH ×2 (08:39→22:11)
[2017-01-02] MEDS ORDERED: MAGNESIUM SULF 1 GM/DEXTROSE 100 ML IV ONE (08:40)
[2017-01-02] MEDS: CARVEDILOL 6.25 MG TAB PO SCH ×2 (08:59→18:10)
[2017-01-02] MEDS: SPIRONOLACTONE 25 MG TAB PO SCH (09:00)
[2017-01-02] MEDS: FUROSEMIDE 20 MG TAB PO SCH ×2 (09:00→15:14)
[2017-01-02] MEDS: POLYETHYLENE GLYCOL 3350 17 GM PKT PO SCH (09:00)
[2017-01-02 09:02] LABS: INTERPRETATION See Comments
[2017-01-02] MEDS: SENNOSIDES/DOCUSATE SODIUM TAB PO SCH ×2 (09:03→22:10)
[2017-01-02] MEDS: oxyCODONE IR 5 MG TAB PO PRN ×4 (09:19→22:10)
--- NOTE | 2017-01-02 09:29 | SOAPPROG ---
SOAP Progress Note Assessment/Plan: Assessment: Patient Name: JANNA PADILLA Date of : [birth year] Patient Status: Inpatient Attending Provider: Pernell Simpson Date: 12/31/16 08:37 Initialization Date: 12/31/16 08:37 Cardiology Progress Note Assessment/Plan: Assessment/ plan: 31-year-old female with nonischemic cardiomyopathy thought most likely to be related to hypertension and heavy alcohol use. She was initially diagnosed with this problem in November. She is now readmitted with right flank pain and found to have renal infarcts. Echocardiogram now shows LV thrombus, it is felt that her renal infarcts are most likely embolic phenomenon. However, evaluation for vasculitis pending, per the renal service. 1. cardiomyopathy: She appears euvolemic. Continue lisinopril and Coreg. Continue Lasix and spironolactone. life vest info to be sent tonight 2. LV thrombus with evidence of embolic phenomenon as detailed above. She is on heparin drip and coumadin..inr 1.37...echo today without lv thrombus... 3. Ventricular tachycardia: Uptitrated Coreg. Magnesium repletion. Will need LifeVest. She has not had syncope. 4. elevated LFTs And fatty liver on ultrasound: This may be related to her alcohol use. She needs to quit completely. 5. history of hypertension: Currently well controlled. 6. Malpositioned IUD seen on pelvic ultrasound. discussed with gynecology. they recommend removal and replacement with a new device as an outpatient.T he patient and her understands that at this point it would be detrimental for her to become that she has cardiomyopathy, LV thrombus, and is on warfarin and lisinopril both of which are to teratogenic 7. Low platelets: Mild. Unlikely to be HIT. 8. Hyponatremia: Mild. May be related to D5 solution. Plan:1....await life vest to be place on before d/c..poss d/c with lovenox bridge if inr lags and life vest gets here 01/01/17 17:12 01/02/17 09:28 Subjective: no cv c/o..pt in good spirits..inr 1.37 Objective: Vital Signs Temp Pulse Resp BP Pulse Ox 36.4 C 70 17 107/64 92 01/02/17 08:00 01/02/17 08:59 01/02/17 08:00 01/02/17 08:59 01/02/17 08:00 Laboratory Results 01/02/17 04:45 01/02/17 04:45 01/01/17 01/02/17 01/03/17 05:59 05:59 05:59 Intake Total 1122 2990 Output Total 700 Balance 422 2990 PT 16.9 SEC (12.0-15.0) H 01/02/17 04:45 INR 1.37 (0.83-1.16) H 01/02/17 04:45 Physical Exam - Physical Exam Respiratory: lungs clear Cardiac/Chest: regular rate, rhythm, No edema, No JVD ICD10 Worksheet Patient Problems: Problems Problem Status Onset Renal infarction Acute Cardiomyopathy Acute Left ventricular thrombus Acute Seizure Acute Tachycardia Acute
[2017-01-02] MEDS ORDERED: WARFARIN SODIUM 5 MG TAB PO ONE ×2 (09:42→16:00)
[2017-01-02 10:52] LABS: INR 1.1; INTERPRETATION See Comments; PT 11.8 sec; PTT 73 sec (26 - 36)
[2017-01-02 11:14] LABS: PTT 1:1 NORMAL PLASMA 49 sec (26 - 36); REPTILASE TIME 18 sec (14 - 23); THROMBIN TIME > 300 sec (15 - 23)
[2017-01-02] MEDS: HEPARIN 25,000 UNIT in NS 500 ML IV SCH (12:56)
--- NOTE | 2017-01-02 15:22 | HOSPPROG ---
Hospitalist Progress Note Assessment/Plan: DIAGNOSIS: 1. Acute left ventricular thrombus 2. Acute renal infarction 3. Nonsustained ventricular tachycardia 4. Nonischemic cardiomyopathy 5. Chronic systolic congestive heart failure 6. Atelectasis 7. Suspected hepatic steatosis 8. Systemic inflammatory response syndrome 9. IUD malposition 10. Acute Hyponatremia INR continues rising on Coumadin. No thrombus was seen on repeat echo. At this point discharge will be planned when her life vest is available. Follow -up will be in the outpatient clinic at [facility] for management of anticoagulation, heart failure, and arrhythmia. PLANS: -Continue current management for now -Plan on discharge once life vest available and in place I reviewed in detail today with Dr. Yifan Alston SUBJECTIVE: Still mild discomfort at her kidneys no chest pain shortness of breath or palpitations, eating well and ambulating OBJECTIVE Vitals reviewed: stable with no fever hospitalist nocturnist physician: Sinus rhythm without significant ectopy Exam: alert oriented skin warm dry color ok resps not labored lungs clear BSs heart regular abd soft nondistended nontender, bowel sounds present limbs warm, no edema iv site ok Objective: Vital Signs Temp Pulse Resp BP Pulse Ox 36.4 C 64 18 122/81 H 96 01/02/17 08:00 01/02/17 12:00 01/02/17 12:00 01/02/17 12:00 01/02/17 12:00 Laboratory Results 01/02/17 04:45 01/02/17 04:45 01/01/17 01/02/17 01/03/17 06:59 06:59 06:59 Intake Total 1122 2990 Output Total 700 Balance 422 2990 PT 16.9 SEC (12.0-15.0) H 01/02/17 04:45 INR 1.37 (0.83-1.16) H 01/02/17 04:45 ICD10 Worksheet Patient Problems: Problems Problem Status Onset Renal infarction Acute Cardiomyopathy Acute Left ventricular thrombus Acute Seizure Acute Tachycardia Acute
[2017-01-03 05:27] LABS: INR 1.71 (0.83-1.16); PROTIME(PATIENT) 20.1 SEC (12.0-15.0)
[2017-01-03] MEDS: POLYETHYLENE GLYCOL 3350 17 GM PKT PO SCH (09:26)
[2017-01-03] MEDS: oxyCODONE IR 5 MG TAB PO PRN ×4 (09:27→21:55)
[2017-01-03] MEDS: SPIRONOLACTONE 25 MG TAB PO SCH (09:27)
[2017-01-03] MEDS: CARVEDILOL 6.25 MG TAB PO SCH ×2 (09:27→17:48)
[2017-01-03] MEDS: FUROSEMIDE 20 MG TAB PO SCH ×2 (09:27→13:57)
[2017-01-03] MEDS: LISINOPRIL 5 MG TAB PO SCH ×2 (09:32→21:56)
[2017-01-03] MEDS: SENNOSIDES/DOCUSATE SODIUM TAB PO SCH ×2 (09:59→21:54)
[2017-01-03] MEDS ORDERED: WARFARIN SODIUM 5 MG TAB PO ONE (13:37)
--- NOTE | 2017-01-03 13:37 | SOAPPROG ---
SOAP Progress Note Assessment/Plan: Assessment: Patient Name: JANNA PADILLA Date of : [birth year] Patient Status: Inpatient Attending Provider: Pernell Simpson Date: 12/31/16 08:37 Initialization Date: 12/31/16 08:37 Cardiology Progress Note Assessment/Plan: Assessment/ plan: 31-year-old female with nonischemic cardiomyopathy thought most likely to be related to hypertension and heavy alcohol use. She was initially diagnosed with this problem in November. She is now readmitted with right flank pain and found to have renal infarcts. Echocardiogram now shows LV thrombus, it is felt that her renal infarcts are most likely embolic phenomenon. However, evaluation for vasculitis pending, per the renal service. 1. cardiomyopathy: She appears euvolemic. Continue lisinopril and Coreg. Continue Lasix and spironolactone. life vest info to be sent tonight 2. LV thrombus with evidence of embolic phenomenon as detailed above. She is on heparin drip and coumadin..inr 1.37...echo today without lv thrombus... 3. Ventricular tachycardia: Uptitrated Coreg. Magnesium repletion. Will need LifeVest. She has not had syncope. 4. elevated LFTs And fatty liver on ultrasound: This may be related to her alcohol use. She needs to quit completely. 5. history of hypertension: Currently well controlled. 6. Malpositioned IUD seen on pelvic ultrasound. discussed with gynecology. they recommend removal and replacement with a new device as an outpatient.T he patient and her understands that at this point it would be detrimental for her to become that she has cardiomyopathy, LV thrombus, and is on warfarin and lisinopril both of which are to teratogenic 7. Low platelets: Mild. Unlikely to be HIT. 8. Hyponatremia: Mild. May be related to D5 solution. Plan:1....await life vest to be place on before d/c..poss d/c with lovenox bridge if inr lags and life vest gets here 01/01/17 17:12 01/02/17 09:28 Subjective: no cv c/o.. Objective: Vital Signs Temp Pulse Resp BP Pulse Ox 36.8 C 65 16 110/78 92 01/03/17 12:36 01/03/17 12:36 01/03/17 12:36 01/03/17 12:36 01/03/17 12:36 Laboratory Results 01/02/17 04:45 01/02/17 04:45 01/02/17 01/03/17 01/04/17 05:59 05:59 05:59 Intake Total 2990 3830.4 Output Total 500 Balance 2990 3330.4 PT 20.1 SEC (12.0-15.0) H 01/03/17 04:50 INR 1.71 (0.83-1.16) H 01/03/17 04:50 Physical Exam - Physical Exam Respiratory: lungs clear Cardiac/Chest: regular rate, rhythm ICD10 Worksheet Patient Problems: Problems Problem Status Onset Renal infarction Acute Cardiomyopathy Acute Left ventricular thrombus Acute Seizure Acute Tachycardia Acute
--- NOTE | 2017-01-03 17:52 | HOSPPROG ---
Hospitalist Progress Note Assessment/Plan: DIAGNOSIS: 1. Acute left ventricular thrombus 2. Acute renal infarction 3. Nonsustained ventricular tachycardia 4. Nonischemic cardiomyopathy 5. Chronic systolic congestive heart failure 6. Atelectasis 7. Suspected hepatic steatosis 8. Systemic inflammatory response syndrome 9. IUD malposition 10. Acute Hyponatremia INR continues rising on Coumadin. No thrombus was seen on repeat echo. Still waiting her her life this which may come today or tomorrow. Patient should be stable for discharge at that time PLANS: -Continue current management for now -Plan on discharge once life vest available and in place SUBJECTIVE: almost no discomfort at this point. No shortness of breath eating well ambulating well OBJECTIVE Vitals reviewed: stable with no fever monitoring analyst: Sinus rhythm without significant ectopy Exam: alert oriented skin warm dry color ok resps not labored lungs clear BSs heart regular abd soft nondistended nontender, bowel sounds present limbs warm, no edema iv site ok Objective: Vital Signs Temp Pulse Resp BP Pulse Ox 36.4 C 65 18 110/72 96 01/03/17 16:00 01/03/17 16:00 01/03/17 16:00 01/03/17 16:00 01/03/17 16:00 Laboratory Results 01/02/17 04:45 01/02/17 04:45 01/02/17 01/03/17 01/04/17 06:59 06:59 06:59 Intake Total 2990 3830.4 Output Total 500 Balance 2990 3330.4 PT 20.1 SEC (12.0-15.0) H 01/03/17 04:50 INR 1.71 (0.83-1.16) H 01/03/17 04:50 ICD10 Worksheet Patient Problems: Problems Problem Status Onset Renal infarction Acute Cardiomyopathy Acute Left ventricular thrombus Acute Seizure Acute Tachycardia Acute
[2017-01-03] MEDS: HEPARIN 25,000 UNIT in NS 500 ML IV SCH (17:55)
[2017-01-04] MEDS: oxyCODONE IR 5 MG TAB PO PRN (04:39)
[2017-01-04 05:13] LABS: INR 2.13 (0.83-1.16)
[2017-01-04] MEDS: HEPARIN 25,000 UNIT in NS 500 ML IV SCH (07:46)
[2017-01-04] MEDS: FUROSEMIDE 20 MG TAB PO SCH (09:12)
[2017-01-04] MEDS: CARVEDILOL 6.25 MG TAB PO SCH (09:12)
[2017-01-04] MEDS: SENNOSIDES/DOCUSATE SODIUM TAB PO SCH (09:13)
[2017-01-04] MEDS: SPIRONOLACTONE 25 MG TAB PO SCH (09:13)
[2017-01-04] MEDS: POLYETHYLENE GLYCOL 3350 17 GM PKT PO SCH (09:13)
[2017-01-04] MEDS: LISINOPRIL 5 MG TAB PO SCH (09:13)
[2017-01-04 11:17] VITALS: BP 108/65; PULSE 76; RESP 18; TEMP 97.9; O2SAT 97
[2017-01-04] MEDS ORDERED: WARFARIN SODIUM 5 MG TAB PO ONE (12:40)
--- NOTE | 2017-01-04 12:40 | SOAPPROG ---
SOAP Progress Note Assessment/Plan: Assessment: Patient Name: JANNA PADILLA Date of : [birth year] Patient Status: Inpatient Attending Provider: Pernell Simpson Date: 12/31/16 08:37 Initialization Date: 12/31/16 08:37 Cardiology Progress Note Assessment/Plan: Assessment/ plan: 31-year-old female with nonischemic cardiomyopathy thought most likely to be related to hypertension and heavy alcohol use. She was initially diagnosed with this problem in November. She is now readmitted with right flank pain and found to have renal infarcts. Echocardiogram now shows LV thrombus, it is felt that her renal infarcts are most likely embolic phenomenon. However, evaluation for vasculitis pending, per the renal service. 1. cardiomyopathy: She appears euvolemic. Continue lisinopril and Coreg. Continue Lasix and spironolactone. life vest info to be sent tonight 2. LV thrombus with evidence of embolic phenomenon as detailed above. She is on heparin drip and coumadin..inr 2.1 3. Ventricular tachycardia: Uptitrated Coreg. Magnesium repletion. Will need LifeVest. She has not had syncope. 4. elevated LFTs And fatty liver on ultrasound: This may be related to her alcohol use. She needs to quit completely. 5. history of hypertension: Currently well controlled. 6. Malpositioned IUD seen on pelvic ultrasound. discussed with gynecology. they recommend removal and replacement with a new device as an outpatient.T he patient and her understands that at this point it would be detrimental for her to become that she has cardiomyopathy, LV thrombus, and is on warfarin and lisinopril both of which are to teratogenic 7. Low platelets: Mild. Unlikely to be HIT. 8. Hyponatremia: Mild. May be related to D5 solution. Plan:1....life vest here..d/c home with coumadun and 3 lovenox injections and f/ u tommorrow at [facility] coagulation clinic 01/01/17 17:12 01/02/17 09:28 01/04/17 12:39 Subjective: no cv c/o..pt got the life vest last night..inr2.1..no vt on moniter Objective: Vital Signs Temp Pulse Resp BP Pulse Ox 36.6 C 76 18 108/65 97 01/04/17 11:17 01/04/17 11:17 01/04/17 11:17 01/04/17 11:17 01/04/17 11:17 Laboratory Results 01/02/17 04:45 01/02/17 04:45 01/03/17 01/04/17 01/05/17 05:59 05:59 05:59 Intake Total 3830.4 1775 360 Output Total 500 Balance 3330.4 1775 360 PT 24.0 SEC (12.0-15.0) H 01/04/17 04:30 INR 2.13 (0.83-1.16) H 01/04/17 04:30 ICD10 Worksheet Patient Problems: Problems Problem Status Onset Renal infarction Acute Cardiomyopathy Acute Left ventricular thrombus Acute Seizure Acute Tachycardia Acute
[2017-01-04] MEDS ORDERED: ENOXAPARIN 80 MG/0.8 ML SYR SC ONE (14:00)
--- NOTE | 2017-01-04 18:09 | PDDCSUM ---
Discharge Summary Discharge Summary: DISCHARGE SUMMARY NOTE DISCHARGE DIAGNOSES: # Acute renal infarct on the right # Left ventricular thrombus # Ventricular tachycardia # Severe nonischemic cardiomyopathy ejection fraction 15% CONSULTANTS: Chestre Muhammad and naya tomas 0 PROCEDURES: CT scan of abdomen HOSPITAL COURSE SUMMARY: This young woman with a known recently diagnosed ischemic cardiomyopathy ejection fraction 15% came in with right-sided flank pain was found to have renal infarct. Her creatinine remained stable. However echocardiogram showed left ventricular thrombus. She was started on anticoagulation and is now fully anticoagulated without any bleeding complications. She did during her hospital stay have some ventricular tachycardia. Given her severe cardiomyopathy was recommended by Cardiology to use a life vest for approximately 1 month. This was obtained and she goes home with the vest in place. The patient has been receiving Coumadin and heparin intravenously here. Her INR today is 2.1. She will be discharged home today will go to the anticoagulation Clinic and have an INR checked tomorrow as well is on Sunday 4 days from now. I have given her printout of all of her Coumadin doses and all of her INR test results during her hospital stay the to take to the anticoagulation clinic with her. She has been given extensive information and education regarding prescribing and monitoring of Coumadin. She has been given appropriate education regarding the LifeVest. 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 They understand that they should try to avoid due to her heart condition. MEDICATION CHANGES: Addition of Coumadin currently at 10 mg daily but will be rechecking INR tomorrow FOLLOW-UP PLAN: With Cardiology in 1 week Greater than 35 minutes bedside and care coordination time today
[2017-01-05 10:59] LABS: PROTEIN C ANTIGEN 68 % (70-150)
--- NOTE | 2017-01-08 16:11 | PQFORM ---
PHYSICIAN QUERY FORM Needs Your Response This query form is being sent to you to assure this patient record is coded properly. Please respond to the question below: DRIER OPERATOR QUESTION: Dear Dr. Woody, In reviewing this patients medical record it is documented in Dr. Brown's consult report that this patient had the diagnosis of 'Chronic systolic heart failure with a reduced LV systolic function EF 20%.' Also documented in the Hospitalist progress notes dated 12/29-01/03 patient had the diagnosis of ' Chronic systolic CHF, no e/o acute exacerbation. After study, should the diagnosis of 'Chronic systolic heart failure' be included in the discharge summary? Yes No Other more appropriate diagnosis Unable to determine Thank you SHANKAR Neal HIM/Coding Dept [phone] INSTRUCTIONS FOR RESPONSE: Answer question by clicking on the "Edit Document" button. Move cursor to area below the stars. When complete, hit "Save." Click on the "Sign" button, then click "Sign" again. Type in your PIN and hit "Enter." yes MTDD
--- NOTE | 2017-01-08 16:19 | PQFORM ---
PHYSICIAN QUERY FORM Needs Your Response This query form is being sent to you to assure this patient record is coded properly. Please respond to the question below: WAITER/WAITRESS BAR QUESTION: Dear Dr. Woody, In reviewing this patients medical record, it is documented in the Hospitalist progress notes and the SOAP notes dated 12/31-01/03 that the patient had the diagnosis of "Acute Hyponatremia, likely due to high water intake and related to D5 solution." After study, should the diagnosis of "Acute hyponatremia" be included in the discharge summary? Yes No Other more appropriate diagnosis Unable to determine Thank you SHANKAR Neal HIM/Dept Sports Equipment Supervisor [phone] INSTRUCTIONS FOR RESPONSE: Answer question by clicking on the "Edit Document" button. Move cursor to area below the stars. When complete, hit "Save." Click on the "Sign" button, then click "Sign" again. Type in your PIN and hit "Enter." yes MTDD
== END 2017-01-04 14:30 | disposition home or self-care (01) | DRG 699 ==
LOC: F3N 16:05 → OBSVTOIN 17:09 → F2W 17:26
PROVIDERS: ADMIT Family Medicine; ATTEND Internal Medicine
DX: N28.0 Ischemia and infarction of kidney (principal); I47.2 Ventricular tachycardia; I42.9 Cardiomyopathy, unspecified; I50.22 Chronic systolic (congestive) heart failure; E87.1 Hypo-osmolality and hyponatremia; I51.3 Intracardiac thrombosis, not elsewhere classified; K76.0 Fatty (change of) liver, not elsewhere classified; I10 Essential (primary) hypertension; T83.32XA Displacement of intrauterine contraceptive device, initial encounter; J45.909 Unspecified asthma, uncomplicated
CPT/HCPCS: 81332-90; 81479-90; 82947-QW; 85300-90; 85302-90; 85303-90; 85306-90; 85520-90; 85635-90; 85670-90; 96365; 96366; J1170; J1644; J1650; J2405; J3475; Q9967

== ENCOUNTER 2017-02-03 19:14 | Emergency (ER) | payer SELFPAY ==
[2017-02-03 19:29] VITALS: TEMP 97.9
--- NOTE | 2017-02-03 19:52 | CPEKG ---
Heart Rate: 103 RR Interval: 583 P-R Interval: 148 QRSD Interval: 166 QT Interval: 416 QTC Interval: 545 P [place]: 62 QRS [place]: 5 T Wave [place]: 49 EKG Severity - ABNORMAL ECG - EKG Impression: SINUS TACHYCARDIA EKG Impression: LEFT BUNDLE BRANCH BLOCK Electronically Signed By: Fransisca Smith 03-Feb-2017 22:57:26
[2017-02-03 20:22] LABS: % IMMATURE GRANULYOCYTES 0.1 % (0.0-1.1); ABSOLUTE IMMATURE GRANULOCYTES 0.01 10^3/uL (0.00-0.10); ADD DIFF? NO; ADD MORPH? NO; ADD SCAN? NO; ATYPICAL LYMPHOCYTE FLAG 10 (0-99); FRAGMENT RBC FLAG 0 (0-99); HEMATOCRIT 49.7 % (38.0-47.0); HEMOGLOBIN 17.4 g/dL (12.6-16.3); LEFT SHIFT FLG 0 (0-99); LIPEMIA HEMOLYSIS FLAG 90 (0-99); MEAN CELL HEMOGLOBIN 34.9 pg (27.9-34.1); MEAN CELL VOLUME 99.6 fL (81.5-99.8); MEAN PLATELET VOLUME 9.9 fL (8.7-11.7); PLATELET CLUMPS FLAG 0 (0-99); PLATELET COUNT 300 10^3/uL (150-400); RED BLOOD CELL COUNT 4.99 10^6/uL (4.18-5.33); RED CELL DISTRIBUTION WIDTH 11.9 % (11.5-15.2)
[2017-02-03 20:29] LABS: ANION GAP 17 mEq/L (8-16); CALCIUM 10.1 mg/dL (8.5-10.4); CARBON DIOXIDE 21 mEq/l (22-31); CHLORIDE 102 mEq/L (97-110); CREATININE 1.3 mg/dL (0.6-1.0); GLOMERULAR FILTRATION RATE 48; GLUCOSE 101 mg/dL (70-100); POTASSIUM 4.4 mEq/L (3.5-5.2); SODIUM 140 mEq/L (134-144)
[2017-02-03 20:36] LABS: ETHANOL SERUM 284 mg/dL (0-10)
[2017-02-03 20:41] LABS: TROPONIN I 0.014 ng/mL (0-0.034)
--- NOTE | 2017-02-03 21:56 | EDPHY ---
H & P Stated Complaint: Low BP, feels faint, Heart failure-Ione Time Seen by Provider: 02/03/17 19:34 HPI/ROS: CHIEF COMPLAINT: [place] faint HISTORY OF PRESENT ILLNESS: This is a 31-year-old female who presents after an episode of lightheadedness accompanied by tunnel vision. She felt as if she might faint and stretched out. Her checked her blood pressure and found it be in the 60s. She was recently hospitalized (November 2016) and diagnosed with nonischemic cardiomyopathy thought to be secondary to hypertension and alcohol. At the time of that visit she presented with tachycardia. An echocardiogram revealed an ejection fraction of 15-20%. She underwent diuresis. Cardiac catheterization was performed, showing her coronary arteries to be clean. During the hospitalization she had a seizure that was thought to be related to alcohol withdrawal. She was discharged home on Lasix, spironolactone, carvedilol, lisinopril, and Coumadin. She tells me that over the last week she felt poorly. She had no specific complaints but felt tired and not well. She was seen in the cardiology office 5 days ago. Blood work was done and no concerning problems were identified. She had did have some diarrhea the previous week and has subsequently had normal stools intermixed with loose stools. She denies fever or abdominal pain. No blood in her stool. Tonight she began to feel lightheaded, developed tunnel vision, and stretched out. Her checked her blood pressure as above. This reading prompted the emergency department visit. She is not experiencing chest pain. She does not currently feel short of breath. REVIEW OF SYSTEMS: A ten point review of systems was performed and is negative with the exception of the items mentioned in the HPI. Source: Patient Exam Limitations: No limitations - Personal History Current Tetanus/Diphtheria Vaccine: Yes Tetanus Vaccine Date: 2015 - Medical/Surgical History Hx Asthma: Yes Hx Chronic Respiratory Disease: No Hx Diabetes: No Hx Cardiac Disease: Yes Hx Renal Disease: No Hx Cirrhosis: No Hx Alcoholism: No Hx HIV/AIDS: No Hx Splenectomy or Spleen Trauma: No Other PMH: asthma, heart failure 2017-unknown etiology-sees Mello, marijuana. - Family History Significant Family History: No pertinent family hx - Social History Smoking Status: Never smoked Alcohol Use: Occasionally Drug Use: Marijuana Additional Social History: She lives with her . She is currently unemployed. - Physical Exam Exam: General Appearance: Alert. Vital signs reviewed. Heart rate 101 at triage. Eyes: Pupils equal and round, no conjunctival injection, no discharge. Anicteric. ENT, Mouth: Mucous membranes are moist, no oropharyngeal erythema or edema. Neck: No lymphadenopathy, supple. No jugular venous distention. Thyroid midline. Respiratory: Lungs are clear to auscultation; no wheezes, rales, or rhonchi. Cardiovascular: Slightly tachycardic; no murmur, rub, or gallop. Gastrointestinal: Abdomen is soft and nontender, no masses or organomegaly, bowel sounds normal. Skin: Warm and dry, no rashes on exposed skin, normal color. Back: Nontender to palpation over the thoracolumbar spine. No CVAT. Extremities: No lower extremity edema, no calf tenderness or swelling. Knee high Alfred hose in place. Neurological: Alert and oriented. Moving all four extremities easily and equally. Psychiatric: Normal affect. No agitation. Constitutional: Initial Vital Signs Temperature (C) 36.6 C 02/03/17 19:18 Heart Rate 101 H 02/03/17 19:18 Respiratory Rate 18 02/03/17 19:18 Blood Pressure 105/79 02/03/17 19:18 O2 Sat (%) 95 02/03/17 19:18 O2 Delivery Mode Room Air Allergies/Adverse Reactions: codeine Allergy (Mild, Verified 02/03/17 19:22) Other-Enter Comments Home Medications: Medication Instructions Recorded Albuterol Hfa Anes Only [Proair 1 - 2 puffs IH QID 12/07/16 Hfa Icu (*)] EPINEPHRINE [EPIPEN] 0.3 mg IM ONCE 12/07/16 Loteprednol Etabonate [Alrex] 1 drop EACHEYE BID PRN 12/07/16 Lisinopril [Zestril 5 mg (*)] 5 mg PO BID #60 tab 12/11/16 Spironolactone [Aldactone 25 MG 25 mg PO DAILY #30 tab 12/11/16 (*)] Carvedilol [Coreg (*)] 6.25 mg PO BIDMEAL #60 tab 01/04/17 Furosemide [Lasix 20 MG (*)] 20 mg PO BID@0900,1500 #60 tab 01/04/17 Warfarin Sodium [Coumadin 5MG (*)] 5 mg PO AD #60 tab 01/04/17 Medical Decision Making - Diagnostics EKG Interpretation: 12 lead EKG is interpreted in Trace master View by emergency department physician. Sinus tachycardia at 103 with left bundle branch block. Imaging: Two-view chest x-ray reviewed by me in PACs. No acute the cardio pulmonary disease. ED Course/Re-evaluation: Year old with nonischemic cardiomyopathy who presents with a presyncopal episode and reported hypotension. She has not yet taken her evening antihypertensive medications. Initial blood pressure on arrival is 105/79. Heart rate was 101. Two-view chest x-ray reviewed by me and the found to be normal. Her EKG shows sinus tachycardia with a rate of 103. She has a left bundle branch block that has been seen previously. Laboratories including CBC, chemistries, INR, and BMP were obtained. Her BNP is 1800--it was 1630 on January 29 and 7480 on December 08. Her INR is 3.49. Troponin is normal. Hematocrit and hemoglobin are elevated. Platelets are normal. Creatinine is elevated at 1.3. Her creatinine has not been elevated in the past. Her blood alcohol is 284. I spoke with Dr. Chung Mullins on the telephone and he recommends hospitalization with the thought that she could have experienced a malignant arrhythmia causing her to be hypotensive and presyncopal. She has worn a Holter monitor but it has not yet been read--she turned it in a couple of days ago. I spoke with her at some length and explained the recommendation that she be hospitalized for continued cardiac monitoring. I also told her that her blood alcohol was reported at 284. Initially she denied drinking any alcohol and then later stated that she did have some alcohol to drink yesterday. When I left the room she removed her IV, got dressed, and began to leave the hospital. I spoke with her again, recommending that she stay in the hospital tonight. She understands the danger of not doing so. She understands that she could experience and arrhythmia or other problem that would result in . She is adamant about not remaining in the hospital. She refuses to sign a form stating that she is leaving against medical advice. I feel that she understands the benefits of being hospitalized and also understands the risks of not doing so. Her will be driving her home. Differential Diagnosis: I considered a differential diagnosis that includes but is not limited to cardiac arrhythmia, alcohol intoxication, bleeding secondary to anticoagulation , dehydration/hypovolemia. - Data Points Laboratory Results: Laboratory Results 02/03/17 19:35 02/03/17 19:35 02/03/17 02/03/17 02/03/17 19:35 19:35 19:35 WBC 8.00 10^3/uL 10^3/uL (3.80-9.50) RBC 4.99 10^6/uL 10^6/uL (4.18-5.33) Hgb 17.4 g/dL H g/dL (12.6-16.3) Hct 49.7 % H % (38.0-47.0) MCV 99.6 fL fL (81.5-99.8) MCH 34.9 pg H pg (27.9-34.1) MCHC 35.0 g/dL g/dL (32.4-36.7) RDW 11.9 % % (11.5-15.2) Plt Count 300 10^3/uL 10^3/uL (150-400) MPV 9.9 fL fL (8.7-11.7) Neut % (Auto) 29.8 % L % (39.3-74.2) Lymph % (Auto) 57.1 % H % (15.0-45.0) [place] % (Auto) 9.8 % % (4.5-13.0) Eos % (Auto) 2.3 % % (0.6-7.6) Baso % (Auto) 0.9 % % (0.3-1.7) Nucleat RBC Rel Count 0.0 % % (0.0-0.2) Absolute Neuts (auto) 2.39 10^3/uL 10^3/uL (1.70-6.50) Absolute Lymphs (auto) 4.57 10^3/uL H 10^3/uL (1.00-3.00) Absolute Monos (auto) 0.78 10^3/uL 10^3/uL (0.30-0.80) Absolute Eos (auto) 0.18 10^3/uL 10^3/uL (0.03-0.40) Absolute Basos (auto) 0.07 10^3/uL 10^3/uL (0.02-0.10) Absolute Nucleated RBC 0.00 10^3/uL 10^3/uL (0-0.01) Immature Gran % 0.1 % % (0.0-1.1) Immature Gran # 0.01 10^3/uL 10^3/uL (0.00-0.10) PT 35.6 SEC H SEC (12.0-15.0) INR 3.49 H (0.83-1.16) Sodium 140 mEq/L mEq/L (134-144) Potassium 4.4 mEq/L mEq/L (3.5-5.2) Chloride 102 mEq/L mEq/L (97-110) Carbon Dioxide 21 mEq/l L mEq/l (22-31) Anion Gap 17 mEq/L H mEq/L (8-16) BUN 18 mg/dL mg/dL (7-23) Creatinine 1.3 mg/dL H mg/dL (0.6-1.0) Estimated GFR 48 Glucose 101 mg/dL H mg/dL (70-100) Calcium 10.1 mg/dL mg/dL (8.5-10.4) Troponin I 0.014 ng/mL ng/mL (0-0.034) NT-Pro-B Natriuret Pep 1800 pg/mL H pg/mL (0-125) Ethyl Alcohol 284 mg/dL H mg/dL (0-10) Departure - Departure Disposition: Against Medical Advice Clinical Impression: Pre-syncope Condition: Fair Instructions: Near Syncope (ED) Additional Instructions: Please follow up with your aluminum sheet cutter on Sunday. If you feel like you might faint, if you have chest pain, if you have any new or concerning symptoms please come back to the emergency department for another evaluation. As you know, hospitalization has been recommended. I understand that you do not want to stay in the hospital tonight. I have explained to you that we do not know exactly what happened earlier when you were feeling faint. I am concerned that you could have had an abnormal heart rhythm. Abnormal heart rhythms can sometimes cause . Referrals: Luis Argueta MD [Primary Care Provider] - As per Instructions Annelise Agee PA [Physician Insurance Marketing Specialist] - As per Instructions David Treviño MD [Medical Doctor] - As per Instructions
[2017-02-03 22:03] VITALS: BP 109/92; PULSE 94; RESP 16; O2SAT 93
[2017-02-03 22:08] LABS: INR 3.49 (0.83-1.16); PROTIME(PATIENT) 35.6 SEC (12.0-15.0)
== END 2017-02-03 21:59 | disposition left against medical advice (07) ==
DX: R55 Syncope and collapse (principal); J45.909 Unspecified asthma, uncomplicated; Z79.01 Long term (current) use of anticoagulants
CPT/HCPCS: G0480

== ENCOUNTER → 2017-06-12 | Outpatient (CLI) | payer OTHER | LOC: FIMAGING 17:16 | PROVIDERS: ATTEND Obstetrics & Gynecology Gynecology | DX: T83.31XA Breakdown (mechanical) of intrauterine contraceptive device, initial encounter (principal) ==

== ENCOUNTER 2017-10-02 13:00 | Observation (INO) | payer OTHER ==
[2017-10-16] MEDS ORDERED: BACITRACIN IRRIGATION/NS 50,000 UNITS/1,000 ML BTL IRR ONE (11:22)
[2017-10-16] MEDS ORDERED: NS 1,000 ML IV ONE (11:22)
[2017-10-16] MEDS ORDERED: DIAZEPAM 5 MG TAB PO ONE (11:22)
[2017-10-16] MEDS ORDERED: ceFAZolin 2 GM/SWFI 2 GM/20 ML SYR IVP ONE (11:22)
[2017-10-16] MEDS ORDERED: diphenhydrAMINE 25 MG CAP PO ONE (11:22)
--- NOTE | 2017-10-16 11:40 | CPEKG ---
Heart Rate: 75 RR Interval: 800 P-R Interval: 168 QRSD Interval: 154 QT Interval: 464 QTC Interval: 519 P [place]: 68 QRS [place]: -2 T Wave [place]: 84 EKG Severity - ABNORMAL ECG - EKG Impression: SINUS RHYTHM EKG Impression: LEFT BUNDLE BRANCH BLOCK Electronically Signed By: Yifan Alston 16-Oct-2017 15:41:28
[2017-10-16 11:41] LABS: % IMMATURE GRANULYOCYTES 0.3 % (0.0-1.1); ABSOLUTE IMMATURE GRANULOCYTES 0.02 10^3/uL (0.00-0.10); ADD DIFF? NO; ADD MORPH? NO; ADD SCAN? NO; ATYPICAL LYMPHOCYTE FLAG 10 (0-99); FRAGMENT RBC FLAG 0 (0-99); HEMATOCRIT 45.1 % (38.0-47.0); HEMOGLOBIN 15.7 g/dL (12.6-16.3); LEFT SHIFT FLG 0 (0-99); LIPEMIA HEMOLYSIS FLAG 90 (0-99); MEAN CELL HEMOGLOBIN 34.2 pg (27.9-34.1); MEAN CELL HEMOGLOBIN CONCENTR. 34.8 g/dL (32.4-36.7); MEAN CELL VOLUME 98.3 fL (81.5-99.8); MEAN PLATELET VOLUME 9.7 fL (8.7-11.7); PLATELET CLUMPS FLAG 10 (0-99); PLATELET COUNT 347 10^3/uL (150-400); RED BLOOD CELL COUNT 4.59 10^6/uL (4.18-5.33); RED CELL DISTRIBUTION WIDTH 11.5 % (11.5-15.2)
[2017-10-16 11:51] LABS: INR 0.99 (0.83-1.16)
[2017-10-16 11:57] LABS: ANION GAP 15 mEq/L (8-16); CALCIUM 10.9 mg/dL (8.5-10.4); CARBON DIOXIDE 24 mEq/l (22-31); CHLORIDE 101 mEq/L (97-110); CREATININE 0.8 mg/dL (0.6-1.0); GLOMERULAR FILTRATION RATE > 60; GLUCOSE 86 mg/dL (70-100); POTASSIUM 4.2 mEq/L (3.5-5.2); SODIUM 140 mEq/L (134-144)
[2017-10-16] MEDS ORDERED: BUPIVACAINE 0.5% 30 ML SDV ONE (13:02)
[2017-10-16] MEDS ORDERED: LIDOCAINE 1% 300 MG/30 ML SDV ONE (13:02)
[2017-10-16] MEDS ORDERED: IOPAMIDOL (ISOVUE-300) 100 ML BTL ONE (13:02)
--- NOTE | 2017-10-16 13:18 | PDGENHP ---
History & Physical Chief Complaint: NICMP, LBBB Pertinent Past, Social, Family History: NICMP. LBBB. NYHA CLASS II Relevant Physical Exam: S1S2 RRR. CTA. AO X 3 Cardiorespiratory Assessment: FOR BIVICD PLACEMENT
--- NOTE | 2017-10-16 13:46 | PDANEPAE ---
ANE History of Present Illness 32 yo for aicd ANE Past Medical History - Cardiovascular History Hx Hypertension: Yes Hx Arrhythmias: Yes Hx CHF / Valvular Disease: Yes - Pulmonary History Hx Oxygen in Use at Home: No Hx Sleep Apnea: No - Endocrine History Hx Diabetes: No - Chronic Pain History Chronic Pain: No ANE Review of Systems Review of Systems: - Exercise capacity METS (RN): 4 METS ANE Patient History - Allergies Allergies/Adverse Reactions: latex Allergy (Verified 10/09/17 11:21) Rash - Home Medications Home medications: home medication list seen and reviewed Home Medications: Apixaban [Eliquis] 5 mg PO BID 10/09/17 [Last Taken Unknown] Carvedilol [Coreg (*)] 12.5 mg PO BIDMEAL 10/09/17 [Last Taken Unknown] Herbals/Supplements -Info Only 1 ea PO DAILY 10/09/17 [Last Taken Unknown] Multivitamins [Multivitamin (*)] 1 each PO DAILY 10/09/17 [Last Taken Unknown] - Smoking Hx Smoking Status: Never smoked ANE Labs/Vital Signs - Labs Result Diagrams: 10/16/17 11:32 10/16/17 11:32 - Vital Signs Height: 5 ft 8 in Weight: 72.575 kg ANE Physical Exam - Airway Mallampati Score: Class 2 Mouth exam: normal dental/mouth exam - Pulmonary Pulmonary: no respiratory distress - Cardiovascular Cardiovascular: regular rate and rhythym ANE Anesthesia Plan Anesthesia Plan: general endotracheal anesthesia
[2017-10-16] MEDS ORDERED: MIDAZOLAM 2 MG/2 ML VIAL IVP ONE (13:47)
[2017-10-16] MEDS ORDERED: REMIFENTANIL HCL 1 MG VIAL ONE (15:34)
[2017-10-16] MEDS ORDERED: PROPOFOL/EMULSION 500 MG/50 ML BOTTLE IV ONE (15:34)
[2017-10-16] MEDS ORDERED: ONDANSETRON 4 MG/2 ML VIAL ONE (16:20)
[2017-10-16] MEDS ORDERED: ONDANSETRON 4 MG/2 ML VIAL IVP PRN (17:01)
[2017-10-16] MEDS ORDERED: fentaNYL 100 MCG/2 ML INJ IVP PRN (17:01)
[2017-10-16] MEDS ORDERED: NALOXONE HCL 0.4 MG/ML INJ IVP PRN (17:01)
[2017-10-16] MEDS ORDERED: OXYCODONE/APAP 5/325 TAB PO PRN (17:01)
--- NOTE | 2017-10-16 17:02 | POSTANESTH ---
Post Anesthetic Evaluation Cardiovascular Status: Normal, Stable Respiratory Status: Normal, Stable Level of Consciousness/Mental Status: Can Participate in Eval Pain Control: Adequate, Prn Tx Ordered Nausea/Vomiting Control: Adequate, Prn Tx Ordered Complications Possibly Related to Anesthesia: None Noted
--- NOTE | 2017-10-16 17:14 | EPPROC ---
Electrophysiology Procedure Note: PROCEDURE PERFORMED: 1. Implantation of an A-BiV Implantable Cardioverter Defibrillator 2. Subclavian vein angiography 3. Fluoroscopy 4. EP study induction of ventricular fibrillation and defibrillation testing INDICATION: Nonischemic CMP LBBB QRSd 176 ms NYHA Class II PROCEDURE NOTE: Patient presented to the cardiac catheterization laboratory in a fasting, post absorptive state. Dr. Dominguez administered anesthesia. The L infraclavicular area was prepped and draped in the usual sterile fashion. Lidocaine plus bupivacaine was used for local anesthesia. L subclavian venography was performed by injection of iodinated contrast into the L antecubital vein. This was done to assure patency of the vein and also to assess for any anatomical aberrations. Using a combination of blunt and sharp dissection and electrocautery, the dissection was carried down to the prepectoral fascia. A pocket was made in this anatomical plane. All bleeding was controlled with electrocautery. The pocket was packed with gauze soaked in antibiotic solution. Fluoroscopy was utilized during the entire procedure for venous access and placement of the leads Using a direct stick technique the L extra thoracic axillary vein was accessed with 3 sticks using the modified Seldinger technique. Placement of the guide wires into the venous system was confirmed by low pressure blood return and also by visualizing the guide wires advancing into the inferior vena cava. A purse string suture was applied around the guide wires. Two #7 Mont[place]in sheaths were advanced under fluoroscopic guidance over the guide wires. An active fixation ventricular ICD lead was advanced into the right ventricular apex and screwed in place. An active fixation atrial lead was advanced into the right atrial appendage and screwed in place. The peel away sheaths were removed. Pacing thresholds, sensing parameters and lead impedances were measured. There was no diaphragmatic stimulation at maximum output. The leads were sutured to the prepectoral fascia with 3 nonabsorbable sutures. A 9 Montenegrin sheath was advanced over the guide wire into the subclavian vein. Using a [employer] delivery system the coronary sinus ostium was engaged. Initially we could not engage the CS with the sheath and LCB catheter therefore a LV lead was placed in the CS and the sheath tracked over the LV lead. Occlusion retrograde coronary sinus angiography was performed in 2 views. A coronary sinus quadrapolar lead was advanced into the coronary sinus. An angioplasty wire was advanced through the lead and advanced into the mid portion of the superior lateral branch of the coronary sinus. The lead was advanced over the angioplasty wire. Pacing threshold, sensing and impedance was determined. There was no diaphragmatic stimulation at maximum output. The delivery system and the 9 Fr sheath were peeled away. Again, pacing threshold, sensing and impedance was determined. There was no diaphragmatic stimulation at maximum output. The CS lead was secured to the prepectoral fascia with 3 nonabsorbable sutures. Pacing threshold and sensing parameters of the RA, RV and LV leads were checked again. The gauze packing was removed from the ICD pocket. The pocket was again inspected for any bleeding. The leads were attached to the pacemaker securely. The ICD was inserted into the pocket and secured in place with a nonabsorbable suture. Fluoroscopy was performed in [place] and [place] planes to verify right sided placement of the leads. Also fluoroscopy of the pacemaker pocket was performed. Defibrillation threshold testing was performed. The ICD pocket was closed in 3 layers with absorbable monocryl sutures and dereck. Appropriate dressing was applied. The patient left the cardiac catheterization laboratory in stable condition. Defibrillation testing: Not performed, patient has h/o LV thrombus Serial Numbers: 1. Device [facility] Quadra Assura MP 3369 CRTD SN [id number] 2. Atrial Lead M Tendril 2088TC 45 cm SN [id number] 3. Right Ventricular Lead SJM Durata 7122Q 52 cm SN [id number] 4. Left Ventricular Lead SJM Quartet 1456Q 75 cm SN [id number] Stimulation Thresholds & Impedance Measurements: 1. Atrial Lead P 2.8 mV 0.6 V 0.5 ms 1 mA 548 ohm 2. Right Ventricular Lead R 34 mV 0.5 V 0.5 ms 0.7 mA 710 ohm 3. Left Ventricular Lead R >35 mV 0.4 V 0.5 ms 0.4 mA 856 ohm Sanjeev Pacing Parameters: 1. Pacing mode DDDR 2. Lower rate 60 ppm 3. Upper [id number] ppm Tachycardia therapy parameters: VF zone : Detection 200 bpm ATP x 3 Subsequent therapies 40 J VT zone : Detection 150 bpm Monitor only Patient Problems: Problems Problem Status Onset Tachycardia Acute Cardiomyopathy Acute Seizure Acute Renal infarction Acute Left ventricular thrombus Acute
[2017-10-16] MEDS ORDERED: ACETAMINOPHEN 325 MG TAB ONE (17:41)
[2017-10-16] MEDS: ACETAMINOPHEN 325 MG TAB PO PRN (18:00)
--- NOTE | 2017-10-16 18:00 | CPEKG ---
Heart Rate: 68 RR Interval: 882 P-R Interval: 182 QRSD Interval: 102 QT Interval: 448 QTC Interval: 477 P [place]: 55 QRS [place]aines: 49 T Wave Haines: -32 EKG Severity - ABNORMAL ECG - EKG Impression: ATRIAL-SENSED VENTRICULAR-PACED RHYTHM Electronically Signed By: Chung Mullins 17-Oct-2017 11:13:07
[2017-10-16] MEDS: CARVEDILOL 6.25 MG TAB PO SCH (19:02)
[2017-10-16] MEDS: LISINOPRIL 5 MG TAB PO SCH (20:07)
[2017-10-17] MEDS: ACETAMINOPHEN 325 MG TAB PO PRN (04:31)
[2017-10-17 05:06] LABS: % IMMATURE GRANULYOCYTES 0.4 % (0.0-1.1); ABSOLUTE IMMATURE GRANULOCYTES 0.06 10^3/uL (0.00-0.10); ADD DIFF? NO; ADD MORPH? NO; ADD SCAN? NO; ATYPICAL LYMPHOCYTE FLAG 0 (0-99); FRAGMENT RBC FLAG 0 (0-99); HEMATOCRIT 40.7 % (38.0-47.0); LEFT SHIFT FLG 0 (0-99); LIPEMIA HEMOLYSIS FLAG 90 (0-99); MEAN CELL HEMOGLOBIN CONCENTR. 34.4 g/dL (32.4-36.7); MEAN CELL VOLUME 98.8 fL (81.5-99.8); MEAN PLATELET VOLUME 9.9 fL (8.7-11.7); PLATELET CLUMPS FLAG 0 (0-99); PLATELET COUNT 258 10^3/uL (150-400); RED BLOOD CELL COUNT 4.12 10^6/uL (4.18-5.33); RED CELL DISTRIBUTION WIDTH 11.4 % (11.5-15.2)
[2017-10-17 05:11] LABS: ANION GAP 11 mEq/L (8-16); CALCIUM 9.7 mg/dL (8.5-10.4); CARBON DIOXIDE 24 mEq/l (22-31); CHLORIDE 104 mEq/L (97-110); CREATININE 0.8 mg/dL (0.6-1.0); GLOMERULAR FILTRATION RATE > 60; GLUCOSE 92 mg/dL (70-100); POTASSIUM 4.5 mEq/L (3.5-5.2); SODIUM 139 mEq/L (134-144)
--- NOTE | 2017-10-17 08:42 | CPEKG ---
Heart Rate: 68 RR Interval: 882 P-R Interval: 172 QRSD Interval: 116 QT Interval: 424 QTC Interval: 451 P [place]: 59 QRS [place]: 72 T Wave [place]: -9 EKG Severity - ABNORMAL ECG - EKG Impression: ATRIAL-SENSED VENTRICULAR-PACED RHYTHM Electronically Signed By: Chung Mullins 17-Oct-2017 11:13:01
[2017-10-17] MEDS: LISINOPRIL 5 MG TAB PO SCH (08:48)
[2017-10-17] MEDS: CARVEDILOL 6.25 MG TAB PO SCH (08:48)
[2017-10-17] MEDS ORDERED: SPIRONOLACTONE 25 MG TAB PO SCH (09:00)
[2017-10-17 09:10] VITALS: BP 129/76; PULSE 74; RESP 17; TEMP 98.5; O2SAT 98
--- NOTE | 2017-10-17 09:12 | ASMTCMCOM ---
CM Note CM Note Notes: 10/17/2017 Case Management Note Reviewed chart. No Case Management d/c needs identified d/t pt age, employment status, and marital status. There are no PT or OT evals ordered. Case Management d/c poc: Home independent when medically stable with follow up as directed. Case Management available if needs change. Date Signed: 10/17/2017 09:11 AM Electronically Signed By:Rachel Mcgraw RN
--- NOTE | 2017-10-17 14:20 | ASDISCHSUM ---
Discharge Information Plan Status:Home with No Needs Medically Cleared to Leave:10/16/2017 Discharge Date:10/17/2017 11:28 AM CM D/C Disposition:Home, Routine, Self-Care ADT D/C Disposition:Home, Routine, Self-Care Projected Discharge Date:10/17/2017 11:28 AM Transportation at D/C:Family Discharge Delay Reason: Follow-Up Date:10/17/2017 11:28 AM Discharge Slot: Final Diagnosis: Placement Information Patient Contact Information Contact Name:FLORINPORSHANANCY Relationship: Address:[address] City:[place] Alternate Phone: [facility]/Zip Code:[place] [address] Email: Financial Information Financial Class:HMO and PPO Plans Primary Plan Desc:[employer] Primary Plan Number:[id number] Secondary Plan Desc:[employer] Secondary Plan Number:[id number] Assessment Information [facility] CM Progress Note CM Note CM Note Notes: 10/17/2017 Case Management Note Reviewed chart. No Case Management d/c needs identified d/t pt age, employment status, and marital status. There are no PT or OT evals ordered. Case Management d/c poc: Home independent when medically stable with follow up as directed. Case Management available if needs change. Date Signed: 10/17/2017 09:11 AM Electronically Signed By:Rachel Mcgraw RN LACE LACE Length of stay for Answers: 1 day current admission Acuity / Level of Care Answers: No. Emergency dept visits in Answers: 0 last 6 months Score: 1 Date Signed: 10/17/2017 10:04 AM Electronically Signed By:Rachel Mcgraw RN Intervention Information Intervention Type:*Incorrect Registration Date of Service:10/17/2017 08:31 AM Patient Type:Inpatient Staff Member:JUNIE Montilla, Mara Hours: Discipline: Severity: Comment:
--- NOTE | 2017-10-17 20:56 | GDS ---
[f rep st] DISCHARGE SUMMARY DISCHARGE DIAGNOSES: 1. Nonischemic cardiomyopathy. 2. Status post biventricular ICD implant. BRIEF HISTORY: This is a 32-year-old woman with a history of nonischemic cardiomyopathy, diagnosed about a year ago. She has a history of alcoholism as well as hypertension and a family history of cardiomyopathy. She has been sober for over 6 months. Her ejection fraction was 30%. She has [place] Heart Association class 2 symptoms and a QRS of greater than 170 milliseconds. HOSPITAL COURSE: Dr. Mullins implanted a [facility] [employer] MPP biventricular ICD without complications. Device is programmed DDD with a base rate of 60 beats per minute. Right atrial capture threshold is 0.5 V at 0.5 milliseconds. P waves 2.8 mV and lead impedance is 548 ohms. Right ventricular capture threshold was 0.5 V at 0.5 milliseconds. R-wave is 34 mV. RV lead impedance is 710 ohms. LV capture threshold is 0.5 V at 0.5 milliseconds. Lead impedance is 856 ohms. The patient reports mild tenderness at the pacemaker pocket. No chest pain or shortness of breath. No dizziness or lightheadedness. LAB DATA: WBCs 13.75, hemoglobin 14, hematocrit 40.7, platelets 258. Sodium is 139, potassium 4.5, chloride 104, bicarb 24, BUN 8, creatinine 0.8, glucose 92. A 12-lead EKG demonstrates atrial sensing and biventricular pacing. Chest x-ray demonstrates normal lead placement and no pleural effusion. PHYSICAL EXAM: VITAL SIGNS: Blood pressure is 107/73, pulse is 86, respirations 16, temperature 36.3, O2 saturation on room air is 92%. GENERAL: She is alert and oriented in no acute distress. Sitting up in bed. Gauze Bandage and opsite over Pacemaker site is clean and dry and there is mild swelling. LUNGS: Clear to auscultation. HEART: Regular rate, rhythm, without murmur, rub, or gallop. EXTREMITIES: Warm. There is no discoloration. DISCHARGE INSTRUCTIONS: Post ICD implant activity restrictions were reviewed verbally and she was given written instructions also. DISCHARGE MEDICATIONS: Please see discharge medication reconciliation. Of note , she will restart her Eliquis tomorrow morning. FOLLOWUP: She has follow up for pacemaker check and wound check at [facility] on October 23 at 11 o'clock. Follow up with Dr. Muhammad on October 30 at 12:45 and a followup with Dr. Mullins, November 08 at 10:45. /[id number]/MODL MTDD
== END 2017-10-17 11:28 | disposition home or self-care (01) ==
LOC: INTOOBSV 10-16 10:59 → F2W 10-16 10:59 → F3N 10-16 10:59 → F2W 10-16 18:20
PROVIDERS: ADMIT Internal Medicine Cardiovascular Disease; ATTEND Internal Medicine Cardiovascular Disease
PROC: 02HK3KZ Insertion of Defibrillator Lead into Right Ventricle, Percutaneous Approach (ICD-10-PCS; principal; 2017-10-16)
PROC: 02H63KZ Insertion of Defibrillator Lead into Right Atrium, Percutaneous Approach (ICD-10-PCS; principal; 2017-10-16)
PROC: 0JH608Z Insertion of Defibrillator Generator into Chest Subcutaneous Tissue and Fascia, Open Approach (ICD-10-PCS; principal; 2017-10-16)
PROC: B2141ZZ Fluoroscopy of Right Heart using Low Osmolar Contrast (ICD-10-PCS; principal; 2017-10-16)
PROC: B5171ZZ Fluoroscopy of Left Subclavian Vein using Low Osmolar Contrast (ICD-10-PCS; principal; 2017-10-16)
DX: I42.9 Cardiomyopathy, unspecified (principal); F10.21 Alcohol dependence, in remission; I10 Essential (primary) hypertension; Z82.49 Family history of ischemic heart disease and other diseases of the circulatory system
CPT/HCPCS: 33249; 71010; 71020; 93005; C1769; C1893; G0378; C1777; C1882; C1898; C1900; J0690; J2250; J2405; J2704; Q9967

== ENCOUNTER 2018-03-18 12:57 | Emergency (ER) | payer OTHER ==
--- NOTE | 2018-03-18 13:10 | CPEKG ---
Heart Rate: 109 RR Interval: 550 P-R Interval: 144 QRSD Interval: 98 QT Interval: 372 QTC Interval: 502 P [place]: 50 QRS [place]: 87 T Wave [place]: 95 EKG Severity - ABNORMAL ECG - EKG Impression: ATRIAL-SENSED VENTRICULAR-PACED RHYTHM Electronically Signed By: Silvio France 18-Mar-2018 14:00:22
--- NOTE | 2018-03-18 13:39 | EDPHY ---
H & P Stated Complaint: cardiac, altered Time Seen by Provider: 03/18/18 13:15 HPI/ROS: CHIEF COMPLAINT: Confusion, tachycardia, diarrhea HISTORY OF PRESENT ILLNESS: The patient has a history of congestive heart failure. She has a pacemaker and is anticoagulated. She has a 1 day history of diarrhea. This is resulted in some symptoms of fatigue, questionable syncope and confusion. The patient is brought to the emergency department by her with ongoing symptoms. He reportedly left at 5 o'clock this morning for work and returned to find the patient confused and globally weak. The patient denies any history of fall. She denies acute headache. She does report some subjective amnesia regarding the events surrounding today. REVIEW OF SYSTEMS: A comprehensive 10 point review of systems is otherwise negative aside from elements mentioned in the history of present illness. Source: Patient, Family - Personal History Tetanus Vaccine Date: 2015 - Medical/Surgical History Hx Asthma: Yes Hx Chronic Respiratory Disease: No Hx Diabetes: No Hx Cardiac Disease: Yes Hx Renal Disease: No Hx Cirrhosis: No Hx Alcoholism: No Hx HIV/AIDS: No Hx Splenectomy or Spleen Trauma: No Other PMH: asthma, CM, heart failure 2017-unknown etiology-sees Muhammad and [employer] , marijuana. - Social History Smoking Status: Never smoked - Physical Exam Exam: General Appearance: Alert, no distress Eyes: Pupils equal and round no pallor or injection ENT, Mouth: Mucous membranes moist Respiratory: There are no retractions, lungs are clear to auscultation Cardiovascular: Tachycardic Gastrointestinal: Abdomen is soft and nontender, no masses, bowel sounds normal Neurological: A&O, normal motor function, normal sensory exam, normal cranial nerves Skin: Warm and dry, no rashes Musculoskeletal: Neck is supple nontender Extremities: symmetrical, full range of motion Constitutional: Initial Vital Signs Temperature (C) 37.1 C 03/18/18 13:18 Heart Rate 122 H 03/18/18 13:18 Respiratory Rate 16 03/18/18 13:18 Blood Pressure 155/110 H 03/18/18 13:18 O2 Sat (%) 100 03/18/18 13:18 O2 Delivery Mode Room Air Allergies/Adverse Reactions: latex Allergy (Verified 10/09/17 11:21) Rash Home Medications: Medication Instructions Recorded Lisinopril [Zestril 5 mg (*)] 5 mg PO BID #60 tab 12/11/16 Spironolactone [Aldactone 25 MG 25 mg PO DAILY #30 tab 12/11/16 (*)] Carvedilol [Coreg (*)] 12.5 mg PO BIDMEAL 10/09/17 Herbals/Supplements -Info Only 1 ea PO DAILY 10/09/17 Multivitamins [Multivitamin (*)] 1 each PO DAILY 10/09/17 Acetaminophen [Tylenol 325mg (*)] 325 - 650 mg PO Q6H PRN tab 10/17/17 Apixaban [Eliquis] 5 mg PO BID #0 10/17/17 Medical Decision Making - Diagnostics EKG Interpretation: EKG: Complete interpretation has been separately recorded in the [employer] archive. Summary impression: Atrial paced rhythm, rate 109 ED Course/Re-evaluation: The patient presents to the ED with several complaints. The patient did have diarrhea and tachycardia earlier today. Her pacemaker was interrogated in the ED and she reportedly had a SVT earlier today which broke without a intervention in the device. Her max heart rate was 150. In the ED, the patient's vital signs to demonstrate a sinus tachycardia 120. She does clinically appear to be dehydrated. She did receive 500 mL of fluid. The patient's electrolyte panel is within normal limits. Her troponin is normal. I re-evaluated the patient at 3:50 p.m.. She is feeling much better after IV fluid rehydration. Her mentation is normal. There are no abnormal findings on her neurologic examination. She would like to be discharged to home. The patient presents to the ED after an episode of SVT in the setting of dehydration. The patient was noted to be tachycardic upon arrival. She has improved with IV fluid rehydration. She is comfortable being discharged home. Differential Diagnosis: Differential diagnosis considered includes SVT, atrial fibrillation, ventricular tachycardia, stroke, dehydration, metabolic abnormality - Data Points Laboratory Results: Laboratory Results 03/18/18 12:57 03/18/18 12:57 03/18/18 03/18/18 03/18/18 12:57 12:57 12:57 WBC 8.51 10^3/uL 10^3/uL (3.80-9.50) RBC 4.65 10^6/uL 10^6/uL (4.18-5.33) Hgb 16.7 g/dL H g/dL (12.6-16.3) Hct 48.2 % H % (38.0-47.0) MCV 103.7 fL H fL (81.5-99.8) MCH 35.9 pg H pg (27.9-34.1) MCHC 34.6 g/dL g/dL (32.4-36.7) RDW 13.9 % % (11.5-15.2) Plt Count 269 10^3/uL 10^3/uL (150-400) MPV 10.7 fL fL (8.7-11.7) Neut % (Auto) 53.5 % % (39.3-74.2) Lymph % (Auto) 38.3 % % (15.0-45.0) [place] % (Auto) 6.9 % % (4.5-13.0) Eos % (Auto) 0.4 % L % (0.6-7.6) Baso % (Auto) 0.7 % % (0.3-1.7) Nucleat RBC Rel Count 0.4 % H % (0.0-0.2) Absolute Neuts (auto) 4.55 10^3/uL 10^3/uL (1.70-6.50) Absolute Lymphs (auto) 3.26 10^3/uL H 10^3/uL (1.00-3.00) Absolute Monos (auto) 0.59 10^3/uL 10^3/uL (0.30-0.80) Absolute Eos (auto) 0.03 10^3/uL 10^3/uL (0.03-0.40) Absolute Basos (auto) 0.06 10^3/uL 10^3/uL (0.02-0.10) Absolute Nucleated RBC 0.03 10^3/uL H 10^3/uL (0-0.01) Immature Gran % 0.2 % % (0.0-1.1) Immature Gran # 0.02 10^3/uL 10^3/uL (0.00-0.10) Sodium 141 mEq/L mEq/L (135-145) Potassium 4.7 mEq/L mEq/L (3.5-5.2) Chloride 105 mEq/L mEq/L (97-110) Carbon Dioxide 17 mEq/l L mEq/l (22-31) Anion Gap 19 mEq/L H mEq/L (8-16) BUN 12 mg/dL mg/dL (7-23) Creatinine 0.9 mg/dL mg/dL (0.6-1.0) Estimated GFR > 60 Glucose 134 mg/dL H mg/dL (70-100) Calcium 10.0 mg/dL mg/dL (8.5-10.4) Troponin I < 0.012 ng/mL ng/mL (0.000-0.034) Beta HCG, Qual NEGATIVE Medications Given: Discontinued Medications Sodium Chloride (Ns) 500 mls @ 1,000 mls/hr IV EDNOW ONE PRN Reason: Protocol Stop: 03/18/18 14:30 Last Admin: 03/18/18 14:29 Dose: 500 mls Departure - Departure Disposition: Home, Routine, Self-Care Clinical Impression: SVT (supraventricular tachycardia), Dehydration Condition: Good Instructions: Dehydration (ED), Supraventricular Tachycardia (ED) Additional Instructions: 1. Please follow up with your manufacturing engineer chief as scheduled. 2. You may take Imodium as needed for diarrhea. 3. Return to the ED for any recurrent symptoms of confusion, lightheadedness, tachycardia, chest pain or other concerns. Referrals: Daksha Muhammad MD [Medical Doctor] - As per Instructions
[2018-03-18] MEDS ORDERED: NS 500 ML IV ONE (14:01)
[2018-03-18 14:07] LABS: PLATELET COUNT 269 10^3/uL (150-400)
[2018-03-18 16:15] VITALS: BP 117/79
== END 2018-03-18 16:18 | disposition home or self-care (01) ==
LOC: EDUNIT#
DX: I47.1 Supraventricular tachycardia (principal); E86.0 Dehydration; E86.9 Volume depletion, unspecified; J45.909 Unspecified asthma, uncomplicated; Z79.01 Long term (current) use of anticoagulants; Z91.040 Latex allergy status

== ENCOUNTER → 2018-04-12 | Outpatient (CLI) | payer OTHER | LOC: FIMAGING 11:49 | PROVIDERS: ATTEND Family Medicine | DX: R91.1 Solitary pulmonary nodule (principal) ==

== ENCOUNTER 2018-05-09 22:22 | Observation (INO) | payer OTHER ==
--- NOTE | 2018-05-09 22:45 | EDPHY ---
H & P Stated Complaint: abd pain nauea Time Seen by Provider: 05/09/18 22:45 HPI/ROS: HPI CHIEF COMPLAINT: Abdominal pain, nausea, vomiting HISTORY OF PRESENT ILLNESS: Very pleasant 32-year-old female she has a history of cardiomyopathy, with left chest AICD/pacemaker, she presents emergency room with epigastric and right upper quadrant abdominal pain. She describes it is rather sharp. Worse after she eats. It started around 2:00 p.m. Today. She has had some associated nausea with it earlier in the morning. She reports that she has been vomiting multiple times. The pain is rather severe right upper quadrant epigastric goes to her back. She denies any chest pain or shortness of breath, denies fever, denies chills or rigors. Denies lower abdominal pain, denies urinary symptoms. Denies CVA tenderness. Patient rates her pain 6/10 right upper quadrant epigastric. Reproducible on exam. Past Medical History: Cardiomyopathy with AICD/pacemaker. Past Surgical History: AICD/pacemaker Social History: Denies daily use drugs alcohol tobacco. Family History: Noncontributory ROS REVIEW OF SYSTEMS: A comprehensive 10 point review of systems is otherwise negative aside from elements mentioned in the history of present illness. Exam Constitutional triage nursing summary reviewed, vital signs reviewed, awake/ alert. Eyes normal conjunctivae and sclera, EOMI, PERRLA. HENT normal inspection, atraumatic, moist mucus membranes, no epistaxis, neck supple/ no meningismus, no raccoon eyes. Respiratory clear to auscultation bilaterally, normal breath sounds, no respiratory distress, no wheezing. Cardiovascular rate normal, regular rhythm, no murmur, no edema, distal pulses normal. Gastrointestinal tender palpation right upper quadrant and epigastrium, no rebound, no guarding, normal bowel sounds, no distension, no pulsatile mass. Genitourinary no CVA tenderness. Musculoskeletal no midline vertebral tenderness, full range of motion, no calf swelling, no tenderness of extremities, no meningismus, good pulses, neurovascularly intact. Skin pink, warm, & dry, no rash, skin atraumatic. Neurologic awake, alert and oriented x 3, AAOx3, moves all 4 extremities equally, motor intact, sensory intact, CN II-XII intact, normal cerebellar, normal vision, normal speech. Psychiatric normal mood/affect. Heme/Lymph/Immune no lymphadenopathy. Differential diagnosis includes but is not limited to and in no particular order : Bowel obstruction, appendicitis, gallbladder disease, diverticulitis, colitis , enteritis, perforated viscus, gastritis, GERD, esophagitis, urinary tract infection, pyelonephritis, kidney stones Medical Decision Making: Plan for this patient IV establishment IV fluid bolus , IV Dilaudid for pain control, IV Zofran for nausea, ultrasound right upper quadrant for gallbladder disease, check UA, check test, check abdominal labs. EKG and troponin re-evaluate. Re-evaluation: Troponin 0.01. EKG interpretation by me on record in [employer] system. Impression time of EKG 2342, this is a atrially sensed ventricularly paced rhythm. No evidence of acute ischemia. No ST elevation or ST depression. No significant T-wave abnormalities. This EKG is very similar to her previous EKG dated 03/18/2018. CT scan abdomen pelvis with IV contrast called to me by Dr. Jasso, shows inflammation stranding around the pancreatic head consistent pancreatitis. Ultrasound of the gallbladder does not show any evidence of acute cholecystitis or gallbladder disease or bile ductal dilatation. 0128: I discussed the patient's CT scan result shows acute pancreatitis. Additionally blood work with the patient. It is unclear the cause of her pancreatitis. I do recommend she has close follow up with Gastroenterology. I recommend bowel rest over the next 24 hr. I recommend that she does not eat spicy fatty greasy foods stays away from alcohol. Additionally discussed with the patient that she could be admitted today overnight for observation. However she is eager to be discharged home wants to go home she has declined hospital admission. Patient's lipase marginally elevated CT scan shows pancreatitis. Abdominal pain was in epigastric region. Discussed return precautions with her. Patient understands return emergency room if develops worsening abdominal pain fever vomiting, jaundice Follow up with Gastroenterology Source: Patient - Personal History LMP (Females 10-55): Irregular Current Tetanus/Diphtheria Vaccine: Yes Current Tetanus Diphtheria and Acellular Pertussis (TDAP): Yes Tetanus Vaccine Date: 2015 - Medical/Surgical History Hx Asthma: Yes Hx Chronic Respiratory Disease: No Hx Diabetes: No Hx Cardiac Disease: Yes Hx Renal Disease: No Hx Cirrhosis: No Hx Alcoholism: No Hx HIV/AIDS: No Hx Splenectomy or Spleen Trauma: No Other PMH: asthma, CM, heart failure 2017-unknown etiology-sees [employer] , marijuana. - Social History Smoking Status: Never smoked Constitutional: Initial Vital Signs Temperature (C) 36.3 C 05/09/18 22:28 Heart Rate 79 05/09/18 22:28 Respiratory Rate 18 05/09/18 22:28 Blood Pressure 108/76 05/09/18 22:28 O2 Sat (%) 98 05/09/18 22:28 O2 Delivery Mode Room Air Allergies/Adverse Reactions: latex Allergy (Verified 10/09/17 11:21) Rash Home Medications: Medication Instructions Recorded RX: Lisinopril [Zestril 5 mg (*)] 5 mg PO BID #60 tab 12/11/16 RX: Carvedilol [Coreg (*)] 25 mg PO BIDMEAL 10/09/17 RX: Herbals/Supplements -Info Only 1 ea PO DAILY 10/09/17 RX: Multivitamins [Multivitamin 1 each PO DAILY 10/09/17 (*)] RX: Acetaminophen [Tylenol 325mg 325 - 650 mg PO Q6H PRN tab 10/17/17 (*)] Omeprazole 05/09/18 Medical Decision Making - Diagnostics Imaging Results: Imaging Impressions Abdomen Ultrasound 05/09/18 22:53 Impression: 1. No acute findings. 2. Fatty liver. 3. Right renal cortical scarring. Findings discussed with Jose Yun MD 05/10/2018 at 0:06. - Data Points Laboratory Results: Laboratory Results 05/09/18 22:56 05/09/18 23:00 05/10/18 05/09/18 05/09/18 00:50 23:55 23:13 WBC RBC Hgb Hct MCV MCH MCHC RDW Plt Count MPV Neut % (Auto) Lymph % (Auto) [place] % (Auto) Eos % (Auto) Baso % (Auto) Nucleat RBC Rel Count Absolute Neuts (auto) Absolute Lymphs (auto) Absolute Monos (auto) Absolute Eos (auto) Absolute Basos (auto) Absolute Nucleated RBC Immature Gran % Immature Gran # VBG Lactic Acid 2.1 mmol/L mmol/L (0.7-2.1) Sodium Potassium Chloride Carbon Dioxide Anion Gap BUN Creatinine Estimated GFR Glucose Calcium Total Bilirubin Conjugated Bilirubin Unconjugated Bilirubin AST ALT Alkaline Phosphatase POC Troponin I 0.01 ng/mL ng/mL (0.00-0.08) Total Protein Albumin Lipase Beta HCG, Qual Urine Color YELLOW Urine Appearance CLEAR Urine pH 5.0 (5.0-7.5) Ur Specific [place] 1.025 (1.002-1.030) Urine Protein NEGATIVE (NEGATIVE) Urine Ketones NEGATIVE (NEGATIVE) Urine Blood NEGATIVE (NEGATIVE) Urine Nitrate NEGATIVE (NEGATIVE) Urine Bilirubin NEGATIVE (NEGATIVE) Urine Urobilinogen 2.0 EU H EU (0.2-1.0) Ur Leukocyte Esterase NEGATIVE (NEGATIVE) Urine Glucose NEGATIVE (NEGATIVE) 05/09/18 05/09/18 05/09/18 23:00 23:00 22:56 WBC 8.58 10^3/uL 10^3/uL (3.80-9.50) RBC 4.13 10^6/uL L 10^6/uL (4.18-5.33) Hgb 15.3 g/dL g/dL (12.6-16.3) Hct 44.0 % % (38.0-47.0) MCV 106.5 fL H fL (81.5-99.8) MCH 37.0 pg H pg (27.9-34.1) MCHC 34.8 g/dL g/dL (32.4-36.7) RDW 14.0 % % (11.5-15.2) Plt Count 198 10^3/uL 10^3/uL (150-400) MPV 9.5 fL fL (8.7-11.7) Neut % (Auto) 68.6 % % (39.3-74.2) Lymph % (Auto) 21.2 % % (15.0-45.0) [place] % (Auto) 8.3 % % (4.5-13.0) Eos % (Auto) 0.9 % % (0.6-7.6) Baso % (Auto) 0.8 % % (0.3-1.7) Nucleat RBC Rel Count 0.0 % % (0.0-0.2) Absolute Neuts (auto) 5.88 10^3/uL 10^3/uL (1.70-6.50) Absolute Lymphs (auto) 1.82 10^3/uL 10^3/uL (1.00-3.00) Absolute Monos (auto) 0.71 10^3/uL 10^3/uL (0.30-0.80) Absolute Eos (auto) 0.08 10^3/uL 10^3/uL (0.03-0.40) Absolute Basos (auto) 0.07 10^3/uL 10^3/uL (0.02-0.10) Absolute Nucleated RBC 0.00 10^3/uL 10^3/uL (0-0.01) Immature Gran % 0.2 % % (0.0-1.1) Immature Gran # 0.02 10^3/uL 10^3/uL (0.00-0.10) VBG Lactic Acid Sodium 133 mEq/L L mEq/L (135-145) Potassium 4.5 mEq/L mEq/L (3.3-5.0) Chloride 99 mEq/L mEq/L (97-110) Carbon Dioxide 22 mEq/l mEq/l (22-31) Anion Gap 12 mEq/L mEq/L (8-16) BUN 13 mg/dL mg/dL (7-23) Creatinine 0.8 mg/dL mg/dL (0.6-1.0) Estimated GFR > 60 Glucose 104 mg/dL H mg/dL (70-100) Calcium 8.9 mg/dL mg/dL (8.5-10.4) Total Bilirubin 1.9 mg/dL H mg/dL (0.1-1.4) Conjugated Bilirubin 0.7 mg/dL H mg/dL (0.0-0.5) Unconjugated Bilirubin 1.2 mg/dL H mg/dL (0.0-1.1) AST 218 IU/L H IU/L (14-46) ALT 167 IU/L H IU/L (9-52) Alkaline Phosphatase 66 IU/L IU/L (38-126) POC Troponin I Total Protein 7.4 g/dL g/dL (6.3-8.2) Albumin 4.1 g/dL g/dL (3.5-5.0) Lipase 548 IU/L H IU/L (23-300) Beta HCG, Qual NEGATIVE Urine Color Urine Appearance Urine pH Ur Specific [place] Urine Protein Urine Ketones Urine Blood Urine Nitrate Urine Bilirubin Urine Urobilinogen Ur Leukocyte Esterase Urine Glucose 05/09/18 22:56 WBC RBC Hgb Hct MCV MCH MCHC RDW Plt Count MPV Neut % (Auto) Lymph % (Auto) [place] % (Auto) Eos % (Auto) Baso % (Auto) Nucleat RBC Rel Count Absolute Neuts (auto) Absolute Lymphs (auto) Absolute Monos (auto) Absolute Eos (auto) Absolute Basos (auto) Absolute Nucleated RBC Immature Gran % Immature Gran # VBG Lactic Acid 2.4 mmol/L H mmol/L (0.7-2.1) Sodium Potassium Chloride Carbon Dioxide Anion Gap BUN Creatinine Estimated GFR Glucose Calcium Total Bilirubin Conjugated Bilirubin Unconjugated Bilirubin AST ALT Alkaline Phosphatase POC Troponin I Total Protein Albumin Lipase Beta HCG, Qual Urine Color Urine Appearance Urine pH Ur Specific [place] Urine Protein Urine Ketones Urine Blood Urine Nitrate Urine Bilirubin Urine Urobilinogen Ur Leukocyte Esterase Urine Glucose Medications Given: Discontinued Medications Hydromorphone HCl (Dilaudid) 0.5 mg IVP EDNOW ONE Stop: 05/09/18 22:54 Last Admin: 05/09/18 23:08 Dose: 0.5 mg Sodium Chloride (Ns) 1,000 mls @ 0 mls/hr IV EDNOW ONE; [place] PRN Reason: Protocol Stop: 05/09/18 22:54 Last Admin: 05/09/18 23:06 Dose: 1,000 mls Sodium Chloride (Ns) 1,000 mls @ 0 mls/hr IV ONCE ONE PRN Reason: Wide Open Stop: 05/10/18 00:14 Last Admin: 05/10/18 00:14 Dose: 1,000 mls Ondansetron HCl (Zofran) 4 mg IVP EDNOW ONE Stop: 05/09/18 22:54 Last Admin: 05/09/18 23:07 Dose: 4 mg Point of Care Test Results: Chemistry 05/09/18 23:13 POC Troponin I 0.01 ng/mL ng/mL (0.00-0.08) Departure - Departure Disposition: Home, Routine, Self-Care Clinical Impression: Abdominal pain Qualifiers: Abdominal location: epigastric Qualified Code(s): R10.13 - Epigastric pain Acute pancreatitis Qualifiers: Pancreatitis type: other Acute pancreatitis complication: unspecified Qualified Code(s): K85.80 - Other acute pancreatitis without necrosis or infection Condition: Good Instructions: Acute Abdominal Pain (ED), Pancreatitis (ED) Additional Instructions: 1. Follow up with Gastroenterology 2. Please return emergency room if he develops worsening abdominal pain, fever, vomiting, or you turm yellow. 3. Stay away from spicy fatty greasy foods over the next 2 weeks. 4. Return to the emergency room if worse. Referrals: Luis Argueta MD [Primary Care Provider] - As per Instructions
[2018-05-09] MEDS ORDERED: HYDROmorphONE/DILAUDID 2 MG/ML INJ IVP ONE (22:53)
[2018-05-09] MEDS ORDERED: ONDANSETRON 4 MG/2 ML VIAL IVP ONE (22:53)
[2018-05-09] MEDS ORDERED: NS 1,000 ML IV ONE (22:53)
[2018-05-09 23:17] LABS: PLATELET COUNT 198 10^3/uL (150-400)
--- NOTE | 2018-05-09 23:45 | CPEKG ---
Heart Rate: 68 RR Interval: 882 P-R Interval: 140 QRSD Interval: 124 QT Interval: 476 QTC Interval: 507 P [place]: 62 QRS [place]: 96 T Wave [place]: 78 EKG Severity - ABNORMAL ECG - EKG Impression: ATRIAL-SENSED VENTRICULAR-PACED RHYTHM Electronically Signed By: Jose Yun 10-May-2018 07:01:59
[2018-05-10] MEDS ORDERED: NS 1,000 ML IV ONE (00:13)
[2018-05-10] MEDS ORDERED: IOPAMIDOL (ISOVUE-300) 100 ML BTL ONE (00:17)
[2018-05-10] MEDS ORDERED: HYDROCOD/APAP 5/325 PREPACK#6 BTL TAKEHOME ONE (01:27)
[2018-05-10] MEDS ORDERED: ONDANSETRON 4MG PREPACK#2 BTL TAKEHOME ONE (01:27)
[2018-05-10] MEDS ORDERED: D5W 1/2 NS 1,000 ML IV SCH (01:45)
[2018-05-10] MEDS ORDERED: PROMETHAZINE HCL 25 MG/ML INJ IVP PRN (01:45)
[2018-05-10] MEDS ORDERED: ONDANSETRON DISINTEGRATING 4 MG TAB PO PRN (01:45)
[2018-05-10] MEDS ORDERED: ONDANSETRON 4 MG/2 ML VIAL IVP PRN (01:45)
[2018-05-10] MEDS ORDERED: HYDROmorphONE/DILAUDID 2 MG TAB PO PRN (01:45)
[2018-05-10] MEDS ORDERED: ACETAMINOPHEN 325 MG TAB PO PRN (01:45)
[2018-05-10] MEDS ORDERED: ONDANSETRON 4 MG/2 ML VIAL ONE (01:56)
--- NOTE | 2018-05-10 02:09 | PDGENHP ---
History and Physical - Chief Complaint Abdoinal pain - History of Present Illness 32 yo F w/ hx of alcoholism and NICM s/p AICD presents with abdominal pain. Patient states she developed acute onset, severe abdominal pain around 2 PM today. The pain is epi-gastric with radiation to the back and associated with nausea and vomiting. She tells me she has been working hard on her issues with alcohol and rarely drinks now after receiving treatment. She did have a "few sips" of a beer today prior to symptom onset. Additionally, earlier this week with her PCP she received a Hepatitis A vaccine. She also started a daily PPI for occasional GERD symptoms. History Information - Allergies/Home Medication List Allergies/Adverse Reactions: latex Allergy (Verified 10/09/17 11:21) Rash Home Medications: Carvedilol [Coreg (*)] 25 mg PO BIDMEAL 10/09/17 [Last Taken Unknown] Herbals/Supplements -Info Only 1 ea PO DAILY 10/09/17 [Last Taken Unknown] Multivitamins [Multivitamin (*)] 1 each PO DAILY 10/09/17 [Last Taken Unknown] Omeprazole 05/09/18 [Last Taken Unknown] I have personally reviewed and updated: family history, medical history - Past Medical History CHF (NICM s/p AICD) - Surgical History Reports: pacemaker/AICD - Family History Additional family history: No history of primary cardiomyopathy - Social History Smoking Status: Never smoked Additional social history: No illegal drugs, normally independent in ADLs Review of Systems Review of Systems: ROS: 10pt was reviewed & negative except for what was stated in HPI & below Physical Exam Physical Exam: Temp Pulse Resp BP Pulse Ox 36.3 C 71 16 121/85 H 94 05/09/18 22:28 05/10/18 00:17 05/10/18 00:17 05/10/18 00:17 05/10/18 00:17 Constitutional: appears nourished, uncomfortable Eyes: PERRL, EOMI Ears, Nose, Mouth, Throat: moist mucous membranes, no oral mucosal ulcers Cardiovascular: regular rate and rhythym, no murmur, rub, or gallop, other ( Pacer pocket intact) Respiratory: no respiratory distress, clear to auscultation Gastrointestinal: normoactive bowel sounds, tenderness (Epi-gastric), No guarding, No rebound, No distension Skin: warm, normal color Musculoskeletal: full muscle strength, no muscle tenderness Neurologic: AAOx3, CN II-XII Intact Psychiatric: interacting appropriately, not anxious Lab Data & Imaging Review 05/09/18 22:56 05/09/18 23:00 WBC 8.58 10^3/uL (3.80-9.50) 05/09/18 22:56 RBC 4.13 10^6/uL (4.18-5.33) L 05/09/18 22:56 Hgb 15.3 g/dL (12.6-16.3) 05/09/18 22:56 Hct 44.0 % (38.0-47.0) 05/09/18 22:56 MCV 106.5 fL (81.5-99.8) H 05/09/18 22:56 MCH 37.0 pg (27.9-34.1) H 05/09/18 22:56 MCHC 34.8 g/dL (32.4-36.7) 05/09/18 22:56 RDW 14.0 % (11.5-15.2) 05/09/18 22:56 Plt Count 198 10^3/uL (150-400) 05/09/18 22:56 MPV 9.5 fL (8.7-11.7) 05/09/18 22:56 Neut % (Auto) 68.6 % (39.3-74.2) 05/09/18 22:56 Lymph % (Auto) 21.2 % (15.0-45.0) 05/09/18 22:56 [place] % (Auto) 8.3 % (4.5-13.0) 05/09/18 22:56 Eos % (Auto) 0.9 % (0.6-7.6) 05/09/18 22:56 Baso % (Auto) 0.8 % (0.3-1.7) 05/09/18 22:56 Nucleat RBC Rel Count 0.0 % (0.0-0.2) 05/09/18 22:56 Absolute Neuts (auto) 5.88 10^3/uL (1.70-6.50) 05/09/18 22:56 Absolute Lymphs (auto) 1.82 10^3/uL (1.00-3.00) 05/09/18 22:56 Absolute Monos (auto) 0.71 10^3/uL (0.30-0.80) 05/09/18 22:56 Absolute Eos (auto) 0.08 10^3/uL (0.03-0.40) 05/09/18 22:56 Absolute Basos (auto) 0.07 10^3/uL (0.02-0.10) 05/09/18 22:56 Absolute Nucleated RBC 0.00 10^3/uL (0-0.01) 05/09/18 22:56 Immature Gran % 0.2 % (0.0-1.1) 05/09/18 22:56 Immature Gran # 0.02 10^3/uL (0.00-0.10) 05/09/18 22:56 VBG Lactic Acid 2.1 mmol/L (0.7-2.1) 05/10/18 00:50 Sodium 133 mEq/L (135-145) L 05/09/18 23:00 Potassium 4.5 mEq/L (3.3-5.0) 05/09/18 23:00 Chloride 99 mEq/L (97-110) 05/09/18 23:00 Carbon Dioxide 22 mEq/l (22-31) 05/09/18 23:00 Anion Gap 12 mEq/L (8-16) 05/09/18 23:00 BUN 13 mg/dL (7-23) 05/09/18 23:00 Creatinine 0.8 mg/dL (0.6-1.0) 05/09/18 23:00 Estimated GFR > 60 05/09/18 23:00 Glucose 104 mg/dL (70-100) H 05/09/18 23:00 Calcium 8.9 mg/dL (8.5-10.4) 05/09/18 23:00 Total Bilirubin 1.9 mg/dL (0.1-1.4) H 05/09/18 23:00 Conjugated Bilirubin 0.7 mg/dL (0.0-0.5) H 05/09/18 23:00 Unconjugated Bilirubin 1.2 mg/dL (0.0-1.1) H 05/09/18 23:00 AST 218 IU/L (14-46) H 05/09/18 23:00 ALT 167 IU/L (9-52) H 05/09/18 23:00 Alkaline Phosphatase 66 IU/L (38-126) 05/09/18 23:00 POC Troponin I 0.01 ng/mL (0.00-0.08) 05/09/18 23:13 Total Protein 7.4 g/dL (6.3-8.2) 05/09/18 23:00 Albumin 4.1 g/dL (3.5-5.0) 05/09/18 23:00 Lipase 548 IU/L (23-300) H 05/09/18 23:00 Beta HCG, Qual NEGATIVE 05/09/18 23:00 Urine Color YELLOW 05/09/18 23:55 Urine Appearance CLEAR 05/09/18 23:55 Urine pH 5.0 (5.0-7.5) 05/09/18 23:55 Ur Specific [place] 1.025 (1.002-1.030) 05/09/18 23:55 Urine Protein NEGATIVE (NEGATIVE) 05/09/18 23:55 Urine Ketones NEGATIVE (NEGATIVE) 05/09/18 23:55 Urine Blood NEGATIVE (NEGATIVE) 05/09/18 23:55 Urine Nitrate NEGATIVE (NEGATIVE) 05/09/18 23:55 Urine Bilirubin NEGATIVE (NEGATIVE) 05/09/18 23:55 Urine Urobilinogen 2.0 EU (0.2-1.0) H 05/09/18 23:55 Ur Leukocyte Esterase NEGATIVE (NEGATIVE) 05/09/18 23:55 Urine Glucose NEGATIVE (NEGATIVE) 05/09/18 23:55 Imaging Review: Imaging Impressions Abdomen Ultrasound 05/09/18 22:53 Impression: 1. No acute findings. 2. Fatty liver. 3. Right renal cortical scarring. Findings discussed with Jose Yun MD 05/10/2018 at 0:06. Visualized and Interpreted EKG results: Yes EKG Interpretation: Positive for: other (A-sensed, V-paced rhythm) Assessment & Plan Assessment: 32 yo F w/ hx of ETOH abuse and NICM p/w pancreatitis. Plan: 1. Pancreatitis - Diagnosis based on classic symptoms (epi-gastric pain radiating to back assoc. w/ nausea and vomiting), stranding at head of pancreas on CT, and elevated lipase (548). Patient claims she no longer drinks alcohol regularly but does admit to a "few sips" of a beer prior to symptom onset. RUQ U /S negative for gallstones. It's possible patient is not being candid about her drinking noting coexisting transaminitis and macrocytosis. She did receive a hepatitis A vaccine this week; it is also possible, although less likely, that her presentation could be related to an adverse effect of this. - Admit for observation - NPO, mIVF, pain control, anti-emetics - Case discussed with ED physician, previous records reviewed 2. Abnormal LFTs - Mild elevation in AST/ALT as well as bilirubin. This could be related to ETOH intake beyond what the patient admits (values are consistent with those when patient was drinking regularly). Other considerations include inflammation from pancreatitis and adverse reaction to Hepatitis A vaccine. - Monitor CMP 3. NICM - S/p AICD; presumably 2/2 ETOH intake. Appears well compensated. - Continue Coreg, Lisinopril Diet - NPO, ADAT Code - Full PPx - Low risk, ambulate TID Dispo - Admit under observation status
[2018-05-10] MEDS: HYDROmorphONE/DILAUDID 1 MG/ML INJ IVP PRN ×2 (03:00→08:29)
[2018-05-10 04:33] LABS: PLATELET COUNT 155 10^3/uL (150-400)
--- NOTE | 2018-05-10 10:10 | ASMTCASEMG ---
Living Arrangements What is your living Answers: With Spouse arrangement? Who do you live with? Type Of Residence What kind of residence do Answers: House you live in? Discharge Plan Comments Coordination Status Comments Notes: Pts case discussed w/ JUNIE Solares regarding d/c POC. Pt is a 32 y/o female admitted for pancreatitis. Pt will most likely d/c without any needs. No therapies ordered at this time. CM available for changes. Plan: Independent Date Signed: 05/10/2018 10:09 AM Electronically Signed By:SABINE Sims
[2018-05-10] MEDS ORDERED: CARVEDILOL 6.25 MG TAB PO SCH (11:15)
[2018-05-10] MEDS ORDERED: PANTOPRAZOLE SODIUM 40 MG TAB PO SCH (11:15)
--- NOTE | 2018-05-10 14:23 | HOSPPROG ---
Hospitalist Progress Note Assessment/Plan: #Acute pancreatitis: suspect Etoh though she denies significant amount. No gallstone -advanced diet without #Compensated CDM: resume BB, Lisinopril #Transaminitis: Etoh vs reaction to Hep A vaccine. Trending down. #Disp: DC today with FU with GI, PCP Subjective: no N/V, min abd pain. Wants to eat Objective: Vital Signs Temp Pulse Resp BP Pulse Ox 36.6 C 70 15 122/83 H 97 05/10/18 07:35 05/10/18 07:35 05/10/18 07:35 05/10/18 07:35 05/10/18 07:35 Laboratory Results 05/10/18 03:24 05/10/18 03:24 05/09/18 05/10/18 05/11/18 05:59 05:59 05:59 Intake Total 2311 Output Total 400 Balance 1911 - Time Spent With Patient Time Spent with Patient: greater than 25 minutes Time Spent with Patient: Greater than 25 minutes spent on this patients care, greater than 50% of time spent counseling, educating, and coordinating care regarding the above mentioned plan. - Physical Exam Constitutional: no apparent distress Eyes: PERRL Ears, Nose, Mouth, Throat: moist mucous membranes Cardiovascular: regular rate and rhythym, No edema Respiratory: no respiratory distress Gastrointestinal: normoactive bowel sounds, soft, non-tender abdomen Genitourinary: no bladder fullness Skin: warm Musculoskeletal: full muscle strength Neurologic: AAOx3, CN II-XII Intact Psychiatric: interacting appropriately ICD10 Worksheet Patient Problems: Problems Problem Status Onset Abdominal pain Acute Acute pancreatitis Acute Cardiomyopathy Acute Left ventricular thrombus Acute Renal infarction Acute Seizure Acute Tachycardia Acute
[2018-05-10 15:29] VITALS: BP 111/84
--- NOTE | 2018-05-10 16:07 | GDS ---
[f rep st] DISCHARGE SUMMARY DISCHARGE DIAGNOSES: Mild pancreatitis, compensated cardiomyopathy. HISTORY OF PRESENT ILLNESS: 32-year-old female with history of nonischemic cardiomyopathy status post AICD, presenting with abdominal pain. This was severe pain starting yesterday at 2 p.m. in the epigastric region with radiation to the back. She had some nausea and vomiting. She states that she has been rarely drinking. She did have a few sips of beer prior to symptom onset. She also had a hepatitis A vaccine earlier this week by her PCP. HOSPITAL COURSE: 1. Acute pancreatitis: evidence of stranding on CT with mildly elevated lipase of 548. Ultrasound negative for gallstones. She no longer drinks regularly, but may be drinking more than state. Now eating and drinking without pain. Advance diet slowly and refrain from all alcohol. 2. Transaminitis. Mild elevation. May be related to alcohol, possibly adverse reaction to hepatitis A vaccine. These are trending down. 3. Compensated NI-CDM: h/o AICD. Coreg, Lisinopril DISPOSITION: Patient is stable for discharge home with her . FOLLOWUP: 1. Dr. Argueta, PCP. 2. Referral for gastroenterology. 3. Repeat LFTs. Time spent on DC > 30 min bedside with patient counseling on FU and coordinating DC. /[id number]/MODL MTDD
[2018-05-10] MEDS ORDERED: CARVEDILOL 25 MG TAB PO SCH (18:00)
[2018-05-10] MEDS ORDERED: LISINOPRIL 5 MG TAB PO SCH (21:00)
[2018-05-11] MEDS ORDERED: MULTIVITAMINS 1 EACH TAB PO SCH (09:00)
[2018-05-11] MEDS ORDERED: Herbals/Supplements -Info Only PO SCH (09:00)
== END 2018-05-10 16:10 | disposition home or self-care (01) ==
LOC: F2W 05-10 02:26
PROVIDERS: ADMIT Student in an Organized Health Care Education/Training Program; ATTEND Internal Medicine
DX: K85.90 Acute pancreatitis without necrosis or infection, unspecified (principal); I42.9 Cardiomyopathy, unspecified; Z95.0 Presence of cardiac pacemaker; K70.0 Alcoholic fatty liver; F10.21 Alcohol dependence, in remission; K21.9 Gastro-esophageal reflux disease without esophagitis; Z91.040 Latex allergy status
CPT/HCPCS: 74177; 76705; 93005; G0378; 84484-PO; 96374; J1170; J2405; J2550; Q9967

== ENCOUNTER 2018-08-28 12:48 | Emergency (ER) | payer OTHER ==
--- NOTE | 2018-08-28 13:13 | EDPHY ---
H & P Stated Complaint: Syncope v sz today. Facial Trauma, Rt shoulder pain Time Seen by Provider: 08/28/18 13:01 HPI/ROS: CHIEF COMPLAINT: Seizure HISTORY OF PRESENT ILLNESS: The patient is a 33-year-old female who was walking with her dad and her dad backyard when she bent over to scoop up a piece of doog poop and then went stiff and fell into pea gravel causing abrasions to her left cheek and eye. She then convulsed for about 2 min. She was then postictal for about 15 min according to paramedics. She is now back to baseline. She has had 3 seizures in the past for unspecified reasons. She has history of alcohol abuse and alcohol-induced cardiomyopathy with an AICD implantation. She also has a history of pancreatitis. She states that her last seizure happened in the setting of decreased sleep and [place] poor nutrition. She is not on any antiepileptic medications. She states that she has not drank heavily in several years but that she did have 3 beers over the weekend. She does not think she is withdrawing today. No recent fevers or illness. No new trauma prior to the seizure. She did not bite her tongue. She did have slight incontinence. She has had 2 seizures in the past, 1 was in the ICU when she was recovering from her alcoholic cardiomyopathy and receiving the AIC D. The other was on a road trip where she states she had not been getting much sleep. Severity: Severe Modifying factors: Resolved with time REVIEW OF SYSTEMS: Constitutional: denies: chills, fever, recent illness, recent injury EENTM: See HPI Respiratory: denies: cough, shortness of breath Cardiac: denies: chest pain, irregular heart rate, lightheadedness, palpitations Gastrointestinal/Abdominal: denies: abdominal pain, diarrhea, nausea, vomiting, blood streaked stools Genitourinary: denies: dysuria, frequency, hematuria, pain Musculoskeletal: denies: joint pain, muscle pain Skin: denies: lesions, rash, jaundice, bruising Neurological: denies: headache, numbness, paresthesia, tingling, dizziness, weakness Hematologic/Lymphatic: denies: blood clots, easy bleeding, easy bruising Immunologic/allergic: denies: HIV/AIDS, transplant 10 systems reviewed and negative except as noted EXAM: GENERAL: Well-appearing, well-nourished and in no acute distress. HEAD: Atraumatic, normocephalic. EYES: Mild subconjunctival hemorrhage, no foreign body visible. Pupils equal round and reactive to light, extraocular movements intact, sclera anicteric, conjunctiva are normal. ENT: Abrasion to left cheek, mild swelling TMs normal, nares patent, oropharynx clear without exudates. Moist mucous membranes. NECK: Normal range of motion, supple without lymphadenopathy or JVD. LUNGS: Breath sounds clear to auscultation bilaterally and equal. No wheezes rales or rhonchi. HEART: Regular rate and rhythm without murmurs, rubs or gallops. ABDOMEN: Soft, nontender, normoactive bowel sounds. No guarding, no rebound. No masses appreciated. BACK: No CVA tenderness, no spinal tenderness, step-offs or deformities EXTREMITIES: Normal range of motion, no pitting or edema. No clubbing or cyanosis. NEUROLOGICAL: Cranial nerves II through XII grossly intact. Normal speech, normal gait. 5/5 strength, normal movement in all extremities, normal sensation , normal reflexes PSYCH: Normal mood, normal affect. SKIN: Warm, dry, normal turgor, no visible rashes or lesions. Source: Patient Exam Limitations: No limitations - Personal History Current Tetanus/Diphtheria Vaccine: Yes Current Tetanus Diphtheria and Acellular Pertussis (TDAP): Yes Tetanus Vaccine Date: 2015 - Medical/Surgical History Hx Asthma: Yes Hx Chronic Respiratory Disease: No Hx Diabetes: No Hx Cardiac Disease: Yes Hx Renal Disease: No Hx Cirrhosis: No Hx Alcoholism: No Hx HIV/AIDS: No Hx Splenectomy or Spleen Trauma: No Other PMH: asthma, CM, heart failure 2017-unknown etiology-sees [place] , marijuana. Pacemaker Defibrillator- 2017 fam hx. - Family History Significant Family History: No pertinent family hx - Social History Smoking Status: Never smoked Alcohol Use: Occasionally Drug Use: Marijuana Constitutional: Initial Vital Signs Temperature (C) 36.8 C 08/28/18 12:48 Heart Rate 87 08/28/18 12:48 Respiratory Rate 16 08/28/18 12:48 Blood Pressure 151/111 H 08/28/18 12:48 O2 Sat (%) 96 08/28/18 12:48 O2 Delivery Mode Room Air Allergies/Adverse Reactions: codeine Allergy (Verified 08/28/18 12:58) latex Allergy (Verified 10/09/17 11:21) Rash Home Medications: Medication Instructions Recorded Lisinopril [Zestril 5 mg (*)] 5 mg PO BID #60 tab 12/11/16 Carvedilol [Coreg (*)] 25 mg PO BIDMEAL 10/09/17 Herbals/Supplements -Info Only 1 ea PO DAILY 10/09/17 Multivitamins [Multivitamin (*)] 1 each PO DAILY 10/09/17 Acetaminophen [Tylenol 325mg (*)] 325 - 650 mg PO Q6H PRN tab 10/17/17 Pantoprazole Sodium [Protonix 40mg 40 mg PO DAILY 05/10/18 (*)] Medical Decision Making - Diagnostics EKG Interpretation: An EKG obtained and was read and documented in trace view. Please see trace view for full reading and report. Atrial sensed ventricular paced rhythm. No acute ischemic changes the, similar to previous Imaging: Discussed imaging studies w/ physician executive Radiologist ED Course/Re-evaluation: I will give the patient a dose of Ativan. It is unclear if she has a seizure disorder versus alcohol withdrawal. She seems forthright. We will obtain lab work and head CT. 1:50 p.m. the patient's is here and states that she has done this before when she has had the AICD fire. He requests to have it interrogated. 2:10 p.m. the patient's pacemaker has been interrogated however the Respiratory therapy technicians are having her time transmitting the reading. It is not clear who will read the tracing once that is done. I have paged the [facility] to discuss these questions. Otherwise the patient is feeling well and is ready to go home. 3:00 p.m. the patient he is pacemaker was interrogated by the territory representative here. She did have 2 short episodes of SVT associated with the timing of her seizure-like activity. It did not defibrillate. She also had a SVT run of 10 sec on the of last month. She was hiking at that time and felt slightly lightheaded had to stop and rest. She did not have any seizure-like activity. It is difficult to tell but I think she has a seizure disorder as well as the SVT. It is unclear whether one is triggering the other. I will have her follow up with Dr. Muhammad as she has previously. I will also refer her to Neurology. After long discussion we decided not to start her on Keppra at this time. I did recommend that she not drive. states that driving makes her very anxious any ways. Differential Diagnosis: Partial list of the Differential diagnosis considered include but were not limited to; seizure, arrhythmia, syncope and although unlikely based on the history and physical exam, I also considered head injury, infection. - Data Points Laboratory Results: Laboratory Results 08/28/18 12:50 08/28/18 12:50 Medications Given: Discontinued Medications Sodium Chloride (Ns) 1,000 mls @ 0 mls/hr IV ONCE ONE; Wide Open PRN Reason: Protocol Stop: 08/28/18 13:16 Last Admin: 08/28/18 13:48 Dose: 1,000 mls Lorazepam (Ativan Injection) 1 mg IVP EDNOW ONE Stop: 08/28/18 13:16 Last Admin: 08/28/18 13:26 Dose: 1 mg Departure - Departure Disposition: Home, Routine, Self-Care Clinical Impression: Seizure disorder, SVT (supraventricular tachycardia) Condition: Fair Instructions: Supraventricular Tachycardia (ED), Generalized Tonic Clonic Seizures (ED) Referrals: Luis Argueta MD [Primary Care Provider] - As per Instructions Daksha Muhammad MD [Medical Doctor] - 5-7 days, call for appt. John Paul Martini DO [Medical Doctor] - 5-7 days, call for appt.
[2018-08-28] MEDS ORDERED: LORazepam 2 MG/ML INJ IVP ONE (13:15)
[2018-08-28] MEDS ORDERED: NS 1,000 ML IV ONE (13:15)
--- NOTE | 2018-08-28 13:15 | CPEKG ---
Test Reason : OPEN Blood Pressure : / mmHG Vent. Rate : 087 BPM Atrial Rate : 087 BPM P-R Int : 197 ms QRS Dur : 108 ms QT Int : 412 ms P-R-T Axes : 025 091 057 degrees QTc Int : 496 ms Atrial-sensed ventricular-paced rhythm Confirmed by Wilbert Hutchins ([id number]) on 08/28/2018 1:15:03 PM Referred By: Confirmed By:Wilbert Hutchins
[2018-08-28 13:23] LABS: PLATELET COUNT 147 10^3/uL (150-400)
[2018-08-28 14:08] VITALS: BP 129/96
== END 2018-08-28 15:34 | disposition home or self-care (01) ==
LOC: EDUNIT#
DX: G40.909 Epilepsy, unspecified, not intractable, without status epilepticus (principal); I47.1 Supraventricular tachycardia; J45.909 Unspecified asthma, uncomplicated; Z95.810 Presence of automatic (implantable) cardiac defibrillator; E86.9 Volume depletion, unspecified
CPT/HCPCS: 96374; J2060

== ENCOUNTER → 2018-09-19 | Outpatient (CLI) | payer OTHER ==
--- NOTE | 2018-09-19 13:02 | CPEEG ---
DATE OF STUDY: 09/19/2018 INTERPRETATION: Normal EEG during wakefulness and brief sleep. There were no potentially epileptoge jade abnormalities present during the recording. REPORT: This EEG contains 10 Hz alpha activity to the posterior head regions. There was no abnormal activation at rest or during photic stimulation or hyperventilation. The patient intermittently bec fausto drowsy and fell into light sleep during the study. There was no abnormal activation during drows iness, light sleep, or during times of arousal. /[id number]/MODL
== END ==
LOC: FCPNEURO 07:46
PROVIDERS: ATTEND Physician Assistant Medical
DX: R56.9 Unspecified convulsions (principal)

== ENCOUNTER 2019-03-04 16:30 | Observation (INO) | payer OTHER ==
[2019-03-04] MEDS ORDERED: NS 500 ML IV ONE (16:59)
--- NOTE | 2019-03-04 17:03 | EDPHY ---
H & P Stated Complaint: ? bit by tick now with rash/tachycardic/hx pacemaker icd/ heartfailure Time Seen by Provider: 03/04/19 16:47 HPI/ROS: CHIEF COMPLAINT: Chest pain HISTORY OF PRESENT ILLNESS: 33-year-old female medical history significant for nonischemic cardiomyopathy, AICD, acute pancreatitis, complaining of a rash x1 week after camping as well as chest pain started approximately 8:00 a.m. this morning lasted 10 min while she was at rest. She describes a dull pressure to her left chest while she was at rest lasting 10 min, currently no chest pain. She has never felt her defibrillator fire. No dyspnea. She describes 1 episode of diarrhea recently however otherwise has been feeling well although notes fatigue in the past 24 hr. For the past 7 days she has noticed a nonpruritic, nontender raised erythematous, blanchable rash with discrete lesions to her bilateral forearms, legs and back only. She is concerned may have been secondary to a tick bite as she was camping near [place] when the rash started however denies seeing any ticks or removing any ticks. Her is with her and denies any lesions or similar dermatologic presentation. REVIEW OF SYSTEMS: 10 systems reviewed and negative with the exception of the elements mentioned in the history of present illness PAST MEDICAL & SURGICAL HISTORY: Nonischemic cardiomyopathy. [facility] AICD by Dr Mullins. Pancreatitis. SOCIAL HISTORY: nonsmoker. PHYSICAL EXAM (Prior to examination, patient consented to physical exam, hands were washed and my usual and customary physical exam procedures followed) 1) GENERAL: Well-developed, well-nourished, alert and oriented. Appears to be in no acute distress. 2) HEAD: Normocephalic, atraumatic 3) HEENT: Pupils equal, round, reactive to light bilaterally. Sclera anicteric. Nasopharynx, oropharynx, clear, no lesions. Moist Mucous membranes. 4) NECK: Full range of motion, no meningeal signs. 5) LUNGS: Clear auscultation bilaterally, no wheezes, no rhonchi, no retractions. 6) HEART: Left chest surgical scar noted. AICD palpable. Regular rate and rhythm, no murmur, no heave, no gallop. 7) ABDOMEN: No guarding, no rebound, no focal tenderness, negative McBurney's, negative Ibarra's, negative Rovsing's, negative peritoneal sign, 8) MUSCULOSKELETAL: Moving all extremities, no focal areas of tenderness, no obvious trauma. No peripheral edema or discoloration. 9) BACK: No CVA tenderness, no midline vertebral tenderness, no fluctuance, no step-off, no obvious trauma, no visual or palpable abnormality. 10) SKIN: The patient's bilateral upper extremities and back, sparing her anterior trunk she has multiple discrete blanching 5 mm nonvesicular raised lesions which are nontender, non excoriated, non weeping. 11) Psychiatric: Patient is oriented X 3, there is no agitation. DIFFERENTIAL DIAGNOSIS: In no particular order, including but not limited to myocardial ischemia, pulmonary embolus, chest wall pain, pleural inflammation and pulmonary infectious causes. - Personal History LMP (Females 10-55): Hysterectomy Current Tetanus Diphtheria and Acellular Pertussis (TDAP): Yes Tetanus Vaccine Date: 2015 - Medical/Surgical History Hx Asthma: Yes Hx Chronic Respiratory Disease: No Hx Diabetes: No Hx Cardiac Disease: Yes Hx Renal Disease: No Hx Cirrhosis: No Hx Alcoholism: No Hx HIV/AIDS: No Hx Splenectomy or Spleen Trauma: No Other PMH: asthma, CM, heart failure 2017-unknown etiology-sees [place] , marijuana. Pacemaker Defibrillator- 2017 fam hx. hysterectomy - Social History Smoking Status: Never smoked Constitutional: Initial Vital Signs Temperature (C) 37.3 C 03/04/19 16:35 Heart Rate 154 H 03/04/19 16:35 Respiratory Rate 20 03/04/19 16:35 Blood Pressure 149/107 H 03/04/19 16:35 O2 Sat (%) 96 03/04/19 16:35 O2 Delivery Mode Room Air Allergies/Adverse Reactions: codeine Allergy (Verified 03/04/19 16:34) lamotrigine Allergy (Verified 03/04/19 16:34) latex Allergy (Verified 03/04/19 16:34) Rash Home Medications: Medication Instructions Recorded Herbals/Supplements -Info Only 1 ea PO DAILY 10/09/17 Multivitamins [Multivitamin (*)] 1 each PO DAILY 10/09/17 Carvedilol 6.25 mg PO BID 03/04/19 Lisinopril [Zestril 5 mg (*)] 2.5 mg PO BID 03/04/19 [place]-3/Dha/Epa/Fish Oil [Fish Oil 1 each PO DAILY 03/04/19 1,000 mg Softgel] Medical Decision Making - Diagnostics Imaging Results: Imaging Impressions Chest X-Ray 03/04/19 17:00 Impression: Clear lungs. No acute process. Chest/Thorax CTA 03/04/19 17:42 Impression: 1. Limited evaluation of the subsegmental branches due to motion artifact. No central or segmental pulmonary embolism. 2. Clear lungs. No acute pulmonary process. 3. Hepatic steatosis. Findings discussed with Emergency Department physician hearing and speech assistant, Du Melton at 03/04/2019 18:45. ED Course/Re-evaluation: 6:00 p.m.: Phone call from [employer] phone representative who interpreted the patient's interrogation reports recurrent episodes of SVT since 2:30 p.m. today , appears to be atrial in origin. 6:50 p.m.: Patient's heart rate has been in the 90s, she is currently 120-130 beats per minute. She has a history of alcoholism. At this time she informs me that she has been sober for some time however started drinking recently. Will administer benzodiazepine as well as continued IV fluids. Will consult with cardiology 7:02 p.m.: Consultation Dr. Cheel Todd cardiology who will consult. - Data Points Laboratory Results: Laboratory Results 03/04/19 16:50 03/04/19 16:50 03/04/19 03/04/19 03/04/19 16:53 16:50 16:50 WBC RBC Hgb Hct 44.8 % % (38.0-47.0) MCV MCH MCHC RDW Plt Count MPV Neut % (Auto) Lymph % (Auto) [place] % (Auto) Eos % (Auto) Baso % (Auto) Nucleat RBC Rel Count Absolute Neuts (auto) Absolute Lymphs (auto) Absolute Monos (auto) Absolute Eos (auto) Absolute Basos (auto) Absolute Nucleated RBC Immature Gran % Immature Gran # ESR 17 MM/HR MM/HR (0-20) PT INR APTT D-Dimer Sodium Potassium Chloride Carbon Dioxide Anion Gap BUN Creatinine Estimated GFR Glucose Calcium Total Bilirubin Conjugated Bilirubin Unconjugated Bilirubin AST ALT Alkaline Phosphatase POC Troponin I 0.00 ng/mL ng/mL (0.00-0.08) C-Reactive Protein < 5.0 mg/L mg/L (<10.0) Total Protein Albumin Lipase Beta HCG, Qual Ethyl Alcohol 225 mg/dL H mg/dL (0-10) 03/04/19 03/04/19 03/04/19 16:50 16:50 16:50 WBC RBC Hgb Hct MCV MCH MCHC RDW Plt Count MPV Neut % (Auto) Lymph % (Auto) [place] % (Auto) Eos % (Auto) Baso % (Auto) Nucleat RBC Rel Count Absolute Neuts (auto) Absolute Lymphs (auto) Absolute Monos (auto) Absolute Eos (auto) Absolute Basos (auto) Absolute Nucleated RBC Immature Gran % Immature Gran # ESR PT 15.4 SEC H SEC (12.0-15.0) INR 1.27 H (0.83-1.16) APTT 31.4 SEC SEC (23.0-38.0) D-Dimer 0.99 ug/mLFEU H ug/mLFEU (0.00-0.50) Sodium 138 mEq/L mEq/L (135-145) Potassium 4.6 mEq/L mEq/L (3.5-5.2) Chloride 99 mEq/L mEq/L (97-110) Carbon Dioxide 21 mEq/l L mEq/l (22-31) Anion Gap 18 mEq/L H mEq/L (6-14) BUN 10 mg/dL mg/dL (7-23) Creatinine 0.7 mg/dL mg/dL (0.6-1.0) Estimated GFR > 60 Glucose 97 mg/dL mg/dL (70-100) Calcium 9.8 mg/dL mg/dL (8.5-10.4) Total Bilirubin 1.6 mg/dL H mg/dL (0.1-1.4) Conjugated Bilirubin 0.8 mg/dL H mg/dL (0.0-0.5) Unconjugated Bilirubin 0.8 mg/dL mg/dL (0.0-1.1) AST 283 IU/L H IU/L (14-46) ALT 138 IU/L H IU/L (9-52) Alkaline Phosphatase 178 IU/L H IU/L (38-126) POC Troponin I C-Reactive Protein Total Protein 8.8 g/dL H g/dL (6.3-8.2) Albumin 4.9 g/dL g/dL (3.5-5.0) Lipase 130 IU/L IU/L (23-300) Beta HCG, Qual NEGATIVE Ethyl Alcohol 03/04/19 16:50 WBC 8.26 10^3/uL 10^3/uL (3.80-9.50) RBC 4.04 10^6/uL L 10^6/uL (4.18-5.33) Hgb 15.2 g/dL g/dL (12.6-16.3) Hct 43.4 % % (38.0-47.0) MCV 107.4 fL H fL (81.5-99.8) MCH 37.6 pg H pg (27.9-34.1) MCHC 35.0 g/dL g/dL (32.4-36.7) RDW 13.0 % % (11.5-15.2) Plt Count 229 10^3/uL 10^3/uL (150-400) MPV 10.2 fL fL (8.7-11.7) Neut % (Auto) 35.7 % L % (39.3-74.2) Lymph % (Auto) 51.9 % H % (15.0-45.0) [place] % (Auto) 11.5 % % (4.5-13.0) Eos % (Auto) 0.0 % L % (0.6-7.6) Baso % (Auto) 0.7 % % (0.3-1.7) Nucleat RBC Rel Count 0.0 % % (0.0-0.2) Absolute Neuts (auto) 2.94 10^3/uL 10^3/uL (1.70-6.50) Absolute Lymphs (auto) 4.29 10^3/uL H 10^3/uL (1.00-3.00) Absolute Monos (auto) 0.95 10^3/uL H 10^3/uL (0.30-0.80) Absolute Eos (auto) 0.00 10^3/uL L 10^3/uL (0.03-0.40) Absolute Basos (auto) 0.06 10^3/uL 10^3/uL (0.02-0.10) Absolute Nucleated RBC 0.00 10^3/uL 10^3/uL (0-0.01) Immature Gran % 0.2 % % (0.0-1.1) Immature Gran # 0.02 10^3/uL 10^3/uL (0.00-0.10) ESR PT INR APTT D-Dimer Sodium Potassium Chloride Carbon Dioxide Anion Gap BUN Creatinine Estimated GFR Glucose Calcium Total Bilirubin Conjugated Bilirubin Unconjugated Bilirubin AST ALT Alkaline Phosphatase POC Troponin I C-Reactive Protein Total Protein Albumin Lipase Beta HCG, Qual Ethyl Alcohol Medications Given: Discontinued Medications Sodium Chloride (Ns) 500 mls @ 1,000 mls/hr IV EDNOW ONE PRN Reason: Protocol Stop: 03/04/19 17:28 Last Admin: 03/04/19 17:02 Dose: 500 mls Lorazepam (Ativan Injection) 1 mg IVP EDNOW ONE Stop: 03/04/19 19:03 Last Admin: 03/04/19 19:12 Dose: 1 mg Point of Care Test Results: Chemistry 03/04/19 16:53 POC Troponin I 0.00 ng/mL ng/mL (0.00-0.08) Departure - Departure Disposition: [facility] In[facility] Acute Clinical Impression: Rash Chest pain Qualifiers: Chest pain type: unspecified Qualified Code(s): R07.9 - Chest pain, unspecified Condition: Fair
[2019-03-04 17:07] LABS: PLATELET COUNT 229 10^3/uL (150-400)
[2019-03-04 17:19] LABS: INR 1.27 (0.83-1.16); PROTIME(PATIENT) 15.4 SEC (12.0-15.0)
[2019-03-04] MEDS ORDERED: IOPAMIDOL (ISOVUE 370) 100 ML BTL IV ONE (17:52)
[2019-03-04] MEDS ORDERED: LORazepam 2 MG/ML INJ IVP ONE (19:02)
[2019-03-04] MEDS ORDERED: ONDANSETRON DISINTEGRATING 4 MG TAB PO PRN (19:07)
[2019-03-04] MEDS ORDERED: ONDANSETRON 4 MG/2 ML VIAL IVP PRN (19:07)
[2019-03-04] MEDS ORDERED: ACETAMINOPHEN 325 MG TAB PO PRN (19:07)
[2019-03-04] MEDS ORDERED: LORazepam 2 MG/ML INJ IVP PRN (19:16)
[2019-03-04] MEDS ORDERED: FLUMAZENIL 0.5 MG/5 ML MDV IVP PRN (19:16)
--- NOTE | 2019-03-04 21:23 | PDGENHP ---
<Raquel Gonsales - Last Filed: 03/04/19 21:47> History and Physical - Chief Complaint Chest pain - History of Present Illness This is a 33-year-old female with history of nonischemic cardiomyopathy, pacemaker and history of right renal infarct presenting with 1 week worth of a rash noticed after she went camping. She also complains of left-sided chest pain that started today approximately in the morning time and lasted 10 min while she was at rest. It is described as a dull pressure she currently does not have any chest pain. She has never felt her defibrillator fire, no shortness of breath. While in the emergency room her pacemaker was interrogated and it showed recurrence episodes of SVT since 2:30pm in the afternoon today most likely atrial in origin. While I was evaluating the patient in the emergency room, she did have a couple runs of ventricular tachycardia and during that time she did complain of feeling her heart racing. She does have a heavy alcohol abuse past, she was sober for approximately 6 months however today she reports having wine left over at home and drank a glass of wine. As for her rash that appears on her bilateral arms, bilateral legs, abdomen and back, they are raised erythematous blanchable rash, no fluctuance and not pruritic nor do they burn. She was concerned for ticks however she did not see any ticks nor removed any ticks from her body. Her went camping w/her and has not had any skin rashes at the current moment. She is being admitted for further workup, treatment and monitoring. History Information - Allergies/Home Medication List Allergies/Adverse Reactions: codeine Allergy (Verified 03/04/19 16:34) lamotrigine Allergy (Verified 03/04/19 16:34) latex Allergy (Verified 03/04/19 16:34) Rash Home Medications: Herbals/Supplements -Info Only 1 ea PO DAILY 10/09/17 [Last Taken Unknown] Multivitamins [Multivitamin (*)] 1 each PO DAILY 10/09/17 [Last Taken 03/04/19] Carvedilol 6.25 mg PO BID 03/04/19 [Last Taken 03/04/19 10:00] Lisinopril [Zestril 5 mg (*)] 2.5 mg PO BID 03/04/19 [Last Taken 03/04/19 10:00] [place]-3/Dha/Epa/Fish Oil [Fish Oil 1,000 mg Softgel] 1 each PO DAILY 03/04/19 [ Last Taken 03/04/19] I have personally reviewed and updated: family history, medical history, social history, surgical history Past Medical History: Hypertension, non ischemic dilated cardiomyopathy, congestive heart failure, renal infarct, seizure, shortness of breath, left bundle branch block, SVT - Past Medical History CHF (NICM s/p AICD) Additional medical history: Elevated liver enzymes with possible nonalcoholic steatohepatitis - Surgical History Reports: pacemaker/AICD Additional surgical history: Arthroscopic surgery, hysterectomy partial - Family History Additional family history: No history of primary cardiomyopathy - Social History Smoking Status: Never smoked Alcohol Use: Heavy (Was sober for 6 months, however discussed having a glass of wine today) Drug Use: None Additional social history: No illegal drugs, normally independent in ADLs Review of Systems Review of Systems: ROS: 10pt was reviewed & negative except for what was stated in HPI & below Physical Exam Physical Exam: Lab data and imaging reviewed. White blood count: 8.26 Hemoglobin hematocrit: 15.2 and 43.4 Platelet count: 229 Sodium: 138 Potassium: 4.6 Chloride: 99 Carbon dioxide: 21 BUN/Cr: 10/0.7 D-dimer: 0.99 INR: 1.27 AST/ALT/Alk Phos: 283/138/178 Troponin: 0.00 Chest x-ray: Clear lungs. No acute process EKG: Initial presentation to emergency room, 153 beats per minute ventricular rate with prolonged p.r. Intervals and left bundle branch block; EKG performed at nighttime with ventricle rate of 108 beats per minute atrial sensed ventricular paced rhythm Chest CTA: There was a limited evaluation of the subsegmental branches due to motion artifact, no central or segmental pulmonary embolism; clear lungs; hepatic steatosis Temp Pulse Resp BP Pulse Ox 37.3 C 114 H 13 133/98 H 94 03/04/19 20:00 03/04/19 20:00 03/04/19 20:00 03/04/19 20:00 03/04/19 20:00 Lab Data & Imaging Review 03/04/19 16:50 03/04/19 16:50 WBC 8.26 10^3/uL (3.80-9.50) 03/04/19 16:50 RBC 4.04 10^6/uL (4.18-5.33) L 03/04/19 16:50 Hgb 15.2 g/dL (12.6-16.3) 03/04/19 16:50 Hct 44.8 % (38.0-47.0) 03/04/19 16:50 MCV 107.4 fL (81.5-99.8) H 03/04/19 16:50 MCH 37.6 pg (27.9-34.1) H 03/04/19 16:50 MCHC 35.0 g/dL (32.4-36.7) 03/04/19 16:50 RDW 13.0 % (11.5-15.2) 03/04/19 16:50 Plt Count 229 10^3/uL (150-400) 03/04/19 16:50 MPV 10.2 fL (8.7-11.7) 03/04/19 16:50 Neut % (Auto) 35.7 % (39.3-74.2) L 03/04/19 16:50 Lymph % (Auto) 51.9 % (15.0-45.0) H 03/04/19 16:50 [place] % (Auto) 11.5 % (4.5-13.0) 03/04/19 16:50 Eos % (Auto) 0.0 % (0.6-7.6) L 03/04/19 16:50 Baso % (Auto) 0.7 % (0.3-1.7) 03/04/19 16:50 Nucleat RBC Rel Count 0.0 % (0.0-0.2) 03/04/19 16:50 Absolute Neuts (auto) 2.94 10^3/uL (1.70-6.50) 03/04/19 16:50 Absolute Lymphs (auto) 4.29 10^3/uL (1.00-3.00) H 03/04/19 16:50 Absolute Monos (auto) 0.95 10^3/uL (0.30-0.80) H 03/04/19 16:50 Absolute Eos (auto) 0.00 10^3/uL (0.03-0.40) L 03/04/19 16:50 Absolute Basos (auto) 0.06 10^3/uL (0.02-0.10) 03/04/19 16:50 Absolute Nucleated RBC 0.00 10^3/uL (0-0.01) 03/04/19 16:50 Immature Gran % 0.2 % (0.0-1.1) 03/04/19 16:50 Immature Gran # 0.02 10^3/uL (0.00-0.10) 03/04/19 16:50 ESR 17 MM/HR (0-20) 03/04/19 16:50 PT 15.4 SEC (12.0-15.0) H 03/04/19 16:50 INR 1.27 (0.83-1.16) H 03/04/19 16:50 APTT 31.4 SEC (23.0-38.0) 03/04/19 16:50 D-Dimer 0.99 ug/mLFEU (0.00-0.50) H 03/04/19 16:50 Sodium 138 mEq/L (135-145) 03/04/19 16:50 Potassium 4.6 mEq/L (3.5-5.2) 03/04/19 16:50 Chloride 99 mEq/L (97-110) 03/04/19 16:50 Carbon Dioxide 21 mEq/l (22-31) L 03/04/19 16:50 Anion Gap 18 mEq/L (6-14) H 03/04/19 16:50 BUN 10 mg/dL (7-23) 03/04/19 16:50 Creatinine 0.7 mg/dL (0.6-1.0) 03/04/19 16:50 Estimated GFR > 60 03/04/19 16:50 Glucose 97 mg/dL (70-100) 03/04/19 16:50 Calcium 9.8 mg/dL (8.5-10.4) 03/04/19 16:50 Total Bilirubin 1.6 mg/dL (0.1-1.4) H 03/04/19 16:50 Conjugated Bilirubin 0.8 mg/dL (0.0-0.5) H 03/04/19 16:50 Unconjugated Bilirubin 0.8 mg/dL (0.0-1.1) 03/04/19 16:50 AST 283 IU/L (14-46) H 03/04/19 16:50 ALT 138 IU/L (9-52) H 03/04/19 16:50 Alkaline Phosphatase 178 IU/L (38-126) H 03/04/19 16:50 POC Troponin I 0.00 ng/mL (0.00-0.08) 03/04/19 16:53 C-Reactive Protein < 5.0 mg/L (<10.0) 03/04/19 16:50 Total Protein 8.8 g/dL (6.3-8.2) H 03/04/19 16:50 Albumin 4.9 g/dL (3.5-5.0) 03/04/19 16:50 Lipase 130 IU/L (23-300) 03/04/19 16:50 Beta HCG, Qual NEGATIVE 03/04/19 16:50 Ethyl Alcohol 225 mg/dL (0-10) H 03/04/19 16:50 Assessment & Plan Plan: This is a 33-year-old female presenting to the emergency room after complaints of chest pain which since that time has resolved. She does have a history of alcohol abuse disorder, reported being sober for 6 months until today which she had 1 drink of wine; her serum alcohol level was 225 mg/dL. Her vital signs are the following: Blood pressure 137/95, heart rate 105, respirations 16, 97% on room air, and 37.3 temperature # Chest pain: I consulted with Cardiology. Dr. Todd will consult the patient in the morning. It is thought this was alcohol induced with runs of ventricular tachycardia. She received Ativan the emergency room. No pulmonary embolism was identified on imaging. Initial troponin is negative. I will cycle troponins every 6 hr x2 and she will remain on tele monitoring. I will have an echo complete performed in the morning. Her last 1 was in January 2018 with no left ventricular hypertrophy and ejection fraction was 55%. # alcohol abuse disorder: She seeks help with ongoing support. She is placed on CIWA and given thiamine bolus dose as well as daily dose. # nonischemic cardiomyopathy and pacemaker: Continue carvedilol and lisinopril # history of seizures: New onset of seizures in November 2018, was placed on Keppra which she did take for a month. She stopped Keppra on her own a month prior because she reports she did not like the way it made her feel. She has been placed on seizure precautions and does have Ativan for alcohol withdrawal a but also it onset of seizure. # rash: She is afebrile and alert and oriented. We will continue to monitor this rash. It is not bothersome to her. Diet: Regular Code: Full VTE ppx: Lovenox subq Dispo: admit to obs <Keiry Aguilar - Last Filed: 03/04/19 23:49> History and Physical - History of Present Illness Review of Systems Review of Systems: Physical Exam Physical Exam: Temp Pulse Resp BP Pulse Ox 37.3 C 114 H 13 133/98 H 94 03/04/19 20:00 03/04/19 20:00 03/04/19 20:00 03/04/19 20:00 03/04/19 20:00 Lab Data & Imaging Review 03/04/19 16:50 03/04/19 16:50 WBC 8.26 10^3/uL (3.80-9.50) 03/04/19 16:50 RBC 4.04 10^6/uL (4.18-5.33) L 03/04/19 16:50 Hgb 15.2 g/dL (12.6-16.3) 03/04/19 16:50 Hct 44.8 % (38.0-47.0) 03/04/19 16:50 MCV 107.4 fL (81.5-99.8) H 03/04/19 16:50 MCH 37.6 pg (27.9-34.1) H 03/04/19 16:50 MCHC 35.0 g/dL (32.4-36.7) 03/04/19 16:50 RDW 13.0 % (11.5-15.2) 03/04/19 16:50 Plt Count 229 10^3/uL (150-400) 03/04/19 16:50 MPV 10.2 fL (8.7-11.7) 03/04/19 16:50 Neut % (Auto) 35.7 % (39.3-74.2) L 03/04/19 16:50 Lymph % (Auto) 51.9 % (15.0-45.0) H 03/04/19 16:50 [place] % (Auto) 11.5 % (4.5-13.0) 03/04/19 16:50 Eos % (Auto) 0.0 % (0.6-7.6) L 03/04/19 16:50 Baso % (Auto) 0.7 % (0.3-1.7) 03/04/19 16:50 Nucleat RBC Rel Count 0.0 % (0.0-0.2) 03/04/19 16:50 Absolute Neuts (auto) 2.94 10^3/uL (1.70-6.50) 03/04/19 16:50 Absolute Lymphs (auto) 4.29 10^3/uL (1.00-3.00) H 03/04/19 16:50 Absolute Monos (auto) 0.95 10^3/uL (0.30-0.80) H 03/04/19 16:50 Absolute Eos (auto) 0.00 10^3/uL (0.03-0.40) L 03/04/19 16:50 Absolute Basos (auto) 0.06 10^3/uL (0.02-0.10) 03/04/19 16:50 Absolute Nucleated RBC 0.00 10^3/uL (0-0.01) 03/04/19 16:50 Immature Gran % 0.2 % (0.0-1.1) 03/04/19 16:50 Immature Gran # 0.02 10^3/uL (0.00-0.10) 03/04/19 16:50 ESR 17 MM/HR (0-20) 03/04/19 16:50 PT 15.4 SEC (12.0-15.0) H 03/04/19 16:50 INR 1.27 (0.83-1.16) H 03/04/19 16:50 APTT 31.4 SEC (23.0-38.0) 03/04/19 16:50 D-Dimer 0.99 ug/mLFEU (0.00-0.50) H 03/04/19 16:50 Sodium 138 mEq/L (135-145) 03/04/19 16:50 Potassium 4.6 mEq/L (3.5-5.2) 03/04/19 16:50 Chloride 99 mEq/L (97-110) 03/04/19 16:50 Carbon Dioxide 21 mEq/l (22-31) L 03/04/19 16:50 Anion Gap 18 mEq/L (6-14) H 03/04/19 16:50 BUN 10 mg/dL (7-23) 03/04/19 16:50 Creatinine 0.7 mg/dL (0.6-1.0) 03/04/19 16:50 Estimated GFR > 60 03/04/19 16:50 Glucose 97 mg/dL (70-100) 03/04/19 16:50 Calcium 9.8 mg/dL (8.5-10.4) 03/04/19 16:50 Total Bilirubin 1.6 mg/dL (0.1-1.4) H 03/04/19 16:50 Conjugated Bilirubin 0.8 mg/dL (0.0-0.5) H 03/04/19 16:50 Unconjugated Bilirubin 0.8 mg/dL (0.0-1.1) 03/04/19 16:50 AST 283 IU/L (14-46) H 03/04/19 16:50 ALT 138 IU/L (9-52) H 03/04/19 16:50 Alkaline Phosphatase 178 IU/L (38-126) H 03/04/19 16:50 POC Troponin I 0.00 ng/mL (0.00-0.08) 03/04/19 16:53 C-Reactive Protein < 5.0 mg/L (<10.0) 03/04/19 16:50 Total Protein 8.8 g/dL (6.3-8.2) H 03/04/19 16:50 Albumin 4.9 g/dL (3.5-5.0) 03/04/19 16:50 Lipase 130 IU/L (23-300) 03/04/19 16:50 Beta HCG, Qual NEGATIVE 03/04/19 16:50 Ethyl Alcohol 225 mg/dL (0-10) H 03/04/19 16:50 Assessment & Plan Assessment: Chest pain (Acute) Rash (Acute) Plan: Agree w/ above. Saw pt, discussed case w/ Carlene Gonsales NP and the patient's RN and w/ Dr. Todd who will see pt tomorrow. Keiry Aguilar D.O.
[2019-03-04] MEDS: THIAMINE HCL 500 MG in NS 100 ML IV SCH (21:26)
[2019-03-04] MEDS: NS 1,000 ML IV SCH (21:26)
[2019-03-04] MEDS: CARVEDILOL 6.25 MG TAB PO SCH (22:12)
[2019-03-04] MEDS: LISINOPRIL 5 MG TAB PO SCH (22:12)
[2019-03-04] MEDS ORDERED: METOPROLOL TARTRATE 5 MG/5 ML INJ IVP PRN (23:51)
[2019-03-05] MEDS ORDERED: NITROGLYCERIN 0.4 MG BTL SL ONE (04:52)
--- NOTE | 2019-03-05 05:42 | CPEKG ---
Test Reason : OPEN Blood Pressure : / mmHG Vent. Rate : 108 BPM Atrial Rate : 108 BPM P-R Int : 141 ms QRS Dur : 124 ms QT Int : 394 ms P-R-T Axes : 046 081 071 degrees QTc Int : 528 ms Atrial-sensed ventricular-paced rhythm Compared with 03/04/2019 at 16:48, sinus rhythm with V pacing has replaced wide complex tachycardia Confirmed by Daksha Muhammad ([id number]) on 03/05/2019 5:41:31 AM Referred By: Keiry Aguilar Confirmed By:Daksha Muhammad
[2019-03-05] MEDS: NS 1,000 ML IV SCH (07:43)
[2019-03-05] MEDS ORDERED: MULTIVITAMINS 1 EACH TAB PO SCH (09:00)
[2019-03-05] MEDS ORDERED: ENOXAPARIN 40 MG/0.4 ML SYR SC SCH (09:00)
[2019-03-05] MEDS ORDERED: OMEGA-3 FATTY ACIDS 1,000 MG CAP PO SCH (09:00)
[2019-03-05] MEDS: THIAMINE HCL 500 MG in NS 100 ML IV SCH (09:08)
[2019-03-05] MEDS: CARVEDILOL 6.25 MG TAB PO SCH (09:13)
[2019-03-05] MEDS: LISINOPRIL 5 MG TAB PO SCH (09:16)
--- NOTE | 2019-03-05 10:01 | HOSPPROG ---
Hospitalist Progress Note Assessment/Plan: 22 yo F w non ischemic CMP here w rash, CP CP: ekg non ischemic, neg trop no PE on CT ? GI in origin SVT: continue BB brief rash: c/w folliculitis not tick borne non ischemic CMP: euvolemic alcohol: fell off wagon yesterday acknowledges quite motivated for sobriety dispo: likely home after cardiology eval Subjective: tele: no VT (interp by me). cxr w no infiltrate CHF (interp by me) Objective: Vital Signs Temp Pulse Resp BP Pulse Ox 37.4 C 94 18 124/90 H 93 03/05/19 07:33 03/05/19 09:13 03/05/19 07:33 03/05/19 09:16 03/05/19 07:33 03/04/19 03/05/19 03/06/19 05:59 05:59 05:59 Intake Total 2387 Balance 2387 PT 15.4 SEC (12.0-15.0) H 03/04/19 16:50 INR 1.27 (0.83-1.16) H 03/04/19 16:50 - Physical Exam Constitutional: no apparent distress, appears nourished Eyes: PERRL, anicteric sclera Ears, Nose, Mouth, Throat: moist mucous membranes, hearing normal Cardiovascular: regular rate and rhythym, no murmur, rub, or gallop, No systolic murmur Respiratory: no respiratory distress, no rales or rhonchi Gastrointestinal: normoactive bowel sounds, soft, non-tender abdomen Genitourinary: no bladder fullness, No dunlap in urethra Skin: warm, other (scattered folliculitis like rash) Musculoskeletal: full muscle strength ICD10 Worksheet Patient Problems: Problems Problem Status Onset Chest pain Acute Rash Acute Abdominal pain Acute Acute pancreatitis Acute Cardiomyopathy Acute Left ventricular thrombus Acute Renal infarction Acute Seizure Acute Tachycardia Acute
--- NOTE | 2019-03-05 11:54 | ASMTCMCOM ---
CM Note CM Note Notes: 03/05/2019 Case Management Note Discussed pt during rounds. Pt admitted for chest pain, hx of noischemic cardiomyopathy, pacemaker, right renal infarct and ETOH abuse. Met w/pt to discuss discharge needs. There are no therapy evals ordered today. Pt is to [facility] [phone]. Mom and Dad live in [place], brother lives in [place]. Pt has achieved sobriety for approximately 6 months. Pt sees counselor Nazia Piper on [address] [place] [id number] once a week. Pt has alerted Nazia to hospital admission. Nazia Piper has recommended pt join group therapy in addition to personal counseling. Encouraged pt to use insurance benefits to ensure group therapy is covered. Pt declined further assistance from case management. Pt PCP is Dr. Argueta. Case Management d/c poc: independent with follow up as directed. Case Management available if needs change. Date Signed: 03/05/2019 11:51 AM Electronically Signed By:Rachel Mcgraw RN
[2019-03-05 12:00] VITALS: BP 133/99
--- NOTE | 2019-03-05 12:05 | GCON ---
[f rep st] CONSULTATION CARDIOLOGY CONSULTATION DATE OF CONSULTATION: 03/05/2019 REFERRING PHYSICIAN: Keiry Aguilar DO HISTORY OF PRESENT ILLNESS: The patient is a pleasant 33-year-old female with a known history of non ischemic cardiomyopathy thought to be secondary to underlying history of alcoholism. She also has kn own history of hypertension, hospitalization for pancreatitis and evidence of paroxysmal supraventric ular tachycardia detection on ICD interrogation. The patient was in her usual state of health until yesterday when she was invited to a [employer] e constitution party. She states that she had been sober approximately 6 months, but began drinking alcohol at e constitution party last night. While at the constitution party, she had noticed intermittent rapid heartbeat prompting her t o call her to seek medical evaluation. She initially presented to Urgent Care at which time she was primarily complaining of new onset of rash that she noticed after camping trip last week with her while in [place]. Urgent Care recommended she be seen at [facility]. Wh ile at [facility] on telemetry, she demonstrated runs of supraventricular tachycardia . Per report from Dr. Aguilar that she could appreciate rapid heartbeat. Dr. Aguilar had commented on r uns of brief paroxysms of ventricular tachycardia; however, I have not seen any runs on telemetry con sistent with ventricular tachycardia. Per ER physician, device was interrogated last night demonstrating paroxysms of SVT. Her most recent remote check in our office from November 2018, demonstrated 2 brief episodes of supraventricular tach ycardia. Currently, at the time of my exam, she is resting comfortably. She had no complaints of palpitations , dizziness, lightheadedness, near-syncope or syncope. No complaints of nausea, vomiting, or diaphor esis. No complaints of chest pain. PAST MEDICAL HISTORY: Nonischemic cardiomyopathy alcohol induced, status post primary prevention ICD , history of alcoholism. SOCIAL HISTORY: She is . She lives with her . She is a nonsmoker. Does not use illi cit drugs. PHYSICAL EXAMINATION: VITAL SIGNS: Blood pressure 124/90, heart rate 94 in sinus rhythm, oxygen sat uration 93% on room air, respiratory rate of 18, temperature is 37.4. GENERAL: She is awake, alert, oriented, appropriate in no apparent distress. NECK: There is no evidence of JVP or carotid bruits . LUNGS: Clear to auscultation bilaterally. CARDIAC: S1, S2. Regular rate and rhythm. No murmur s, rubs, or gallops. ABDOMEN: Soft, nontender, nondistended. EXTREMITIES: There is no evidence of cyanosis, clubbing, or edema. DATA: Lab work demonstrates sodium of 138, potassium 4.6, BUN of 10, creatinine 0.7. AST 254, ALT 1 13, lipase 130. Hemoglobin 15.2, hematocrit 43.4, platelet count 229. Of note, alcohol level was al so elevated at a total value of 225 mg/dL. Telemetry demonstrates sinus rhythm and sinus tachycardia. No evidence of ventricular tachycardia, s upraventricular tachycardia. IMPRESSION: 1. Paroxysmal supraventricular tachycardia. 2. Nonischemic cardiomyopathy. 3. Status post primary prevention implantable cardioverter defibrillator implantation. SUMMARY: I think the patient's sinus tachycardia is secondary to her recent alcohol ingestion. She does have a known history of paroxysmal supraventricular tachycardia. I do not think she is a candid ate for ablation at this time. I think this is most likely exacerbated by her alcoholism. I encoura ged her to seek appropriate counseling regarding her alcoholism. I do not think she requires further cardiac testing at this time. PLAN: 1. Would recommend she return to outpatient medications. 2. We will have her follow up with her primary sonar technician, Dr. Daksha Muhammad. /[id number]/MODL
--- NOTE | 2019-03-05 12:55 | GDS ---
[f rep st] DISCHARGE SUMMARY DISCHARGE DIAGNOSES: 1. History of ischemic cardiomyopathy. 2. Left-sided chest pain with negative troponins, nonischemic electrocardiogram, negative pulmonary embolus evaluation. 3. History of alcoholism in remission with relapse yesterday without alcohol withdrawal. 4. Rash consistent with folliculitis. 5. Supraventricular tachycardia with automatic implantable cardioverter-defibrillator in place. HOSPITAL COURSE: Please see admission history and physical by Dr. Keiry Aguilar. The patient present ed with chest pain that was left sided. The aforementioned workup occurred. Her AICD was interrogat ed revealing SVT but no ventricular tachycardia. The patient did not have ventricular tachycardia on the monitor. She had negative troponins. She acknowledged her relapse with alcohol use and remains motivated for abstinence. She is discharged home on unchanged medication regimen. /[id number]/MODL
--- NOTE | 2019-03-05 13:54 | ECHO ---
[email or web address] [address] [address] Main: [phone] Echocardiography Examination Transthoracic Name: JANNA PADILLA MR#: [id number] Study Date: 03/05/2019 Study Time: 08:12 AM Date of : 1985 Age: 33 year(s) Height: 172.7 cm (68 in.) Weight: 70.76 kg (156 lb.) BSA: 1.84 m2 Gender: Female Examination: Echo Contrast: Image Quality: Adequate Rhythm: Heart Rate: BP: / Indication: tachycardia, runs of SVT, CP Procedure Staff Referring Physician: Apartment Le[employer] Consultant: [facility] Reading Physician: Humberto Darnell MD Requesting Provider: Ordering Physician: Raquel Gonsales Indication: tachycardia, runs of SVT, CP Measurements Chambers AV/MV Label Value Normal Value Label Value Normal Value LVOTd 1.9 cm (1.8cm - 2cm) AV PGmax 8 mmHg LVOT VTI 17.4 cm (18cm - 22cm) AV PGmean 5 mmHg LVDd, 2D 5.2 cm (3.9cm - 5.3cm) AV Vmax 1.4 m/s LVDs, 2D 3.6 cm (2.1cm - 4cm) JOSEPH (VTI) 1.9 cm2 IVSd, 2D 0.8 cm (0.6cm - 1.1cm) MV E Vmax 0.48 m/s LVPWd, 2D 0.8 cm MV A Vmax 0.72 m/s LVEF, BP 50 % (55% - 70%) MV E/A 0.67 LVEF, 2D 57 % (54% - 74%) MV E/E' lateral 8.8 LVOT PGmean 2 mmHg MV E/E' septal 6.6 (0.6 - 2.6) LVOT Vmean 0.71 m/s MV DT 225 ms RVDd, 2D 2.6 cm (1.9cm - 3.8cm) MV E' septal 0.07 m/s LA Volume, BP 35 ml (22ml - 52ml) MV PHT 0.06 s LADs, 2D 3.1 cm (2.7cm - 3.8cm) MVA PHT 3.5 cm2 LAESV index, BP 19 ml/m2 MV E' lateral 0.05 m/s Additional Vessels MV E/E' mean 8 Label Value Normal Value MV PHT 62 ms AoAsc 3.2 cm MV E' mean 0.06 m/s AoRoot, 2D 2.7 cm (1.4cm - 2.6cm) TV/PV IVC 0.7 cm (1.2cm - 2.3cm) Label Value Normal Value Patient: JANNA PADILLA Study Date: 03/05/2019 Page 1 of 3 08:12 AM RA Pressure 5 mmHg PV PGmax 5 mmHg PV Vmax, Caliper 1.15 m/s (0.6m/s - 0.9m/s) Conclusions 1. The left ventricle is normal in size. The ejection fraction is estimated at 50-55%. There is paradoxical septal motion consistent with a paced rhythm. 2. The aortic valve is normal in structure. There is mild aortic insufficiency. There is no aortic stenosis. 3. The ascending aorta is normal in size. 4. The mitral valve is normal in structure and function. 5. The pulmonary artery pressure could not be adequately estimated. 6. When compared to the 01/29/2018 study there is no significant change. Findings Left Ventricle: Left ventricle is normal in size. Normal systolic LV function with paradoxic septal motion suggestive of bundle branch block, paced cardiac rhythm, or prior cardiac surgery. The ejection fraction, measured by Simpsons method, is 50 %. EF range is estimated at 50 % - 55 %. Left ventricle wall thickness is normal. Grade I Diastolic Dysfunction. No LV hypertrophy. Right Ventricle: Normal size right ventricle. Right ventricular systolic function is normal. There is a pacemaker lead noted in the right ventricle. Left Atrium: The left atrium is normal in size. Right Atrium: The right atrium is normal in size. Mitral Valve: Mitral valve appears structurally normal. Trivial mitral regurgitation. No mitral valve stenosis. Aortic Valve: Aortic leaflets are structurally normal. Mild aortic regurgitation is present. There is no aortic stenosis. Tricuspid Valve: Tricuspid valve leaflets are structurally normal. No significant tricuspid regurgitation. No tricuspid valve stenosis. Pulmonary artery pressure cannot be assessed due to inadequate TR signal. Pulmonic Valve: Pulmonic leaflets are structurally normal. Trivial pulmonic valve regurgitation is present. Aorta: The aortic root size in 2D measures 2.7 cm. The ascending aorta measures 3.2 cm. Aorta Measurements AoRoot, 2D is 2.7 cm. IVC: The inferior vena cava is normal in size. Pericardium: No pericardial effusion. Exam Details Procedure Ordered: Echo Procedure Status: Routine study Image Quality: Adequate Facility Location: Bedside (No Signature Object) Patient: JANNA PADILLA Study Date: 03/05/2019 Page 2 of 3 08:12 AM Patient: JANNA PADILLA Study Date: 03/05/2019 Page 3 of 3 08:12 AM [id number]
[2019-03-07] MEDS ORDERED: THIAMINE HCL 100 MG TAB PO SCH (09:00)
== END 2019-03-05 13:10 | disposition home or self-care (01) ==
LOC: F2N 19:51
PROVIDERS: ADMIT Internal Medicine; ATTEND Internal Medicine
DX: I42.9 Cardiomyopathy, unspecified (principal); I47.1 Supraventricular tachycardia; R21 Rash and other nonspecific skin eruption; F10.10 Alcohol abuse, uncomplicated; K76.0 Fatty (change of) liver, not elsewhere classified; Z95.810 Presence of automatic (implantable) cardiac defibrillator; Y90.7 Blood alcohol level of 200-239 mg/100 ml; E86.9 Volume depletion, unspecified
CPT/HCPCS: 71046; 71275; 93005; 93306; 96372; 96374; 99285; G0378; 84484-ER; G0480; J1650; J2060; J3411; Q9967